=== PATIENT | female | born 1965 | race Caucasian/White ===

== ENCOUNTER 2020-01-09 06:51 | Emergency (ER) | payer OTHER, SELFPAY ==
--- NOTE | ~2020-01-09 | CT_ITS ---
EXAMINATION: CT BRAIN W/O DATE: 01/09/2020 08:00 INDICATION: Right arm numbness TECHNIQUE: Computed tomography (CT) of the head was performed without intravenous contrast. The dose- length product was 605.33 mGy-cm. The mA was adjusted according to patient size. Iterative reconstruc tion technique was employed. COMPARISON: No prior studies for comparison. FINDINGS: Normal brain parenchymal volume for age. Normal scott-white differentiation. No acute intrac ranial hemorrhage, infarction, mass or mass effect. No ventriculomegaly or midline shift. Midline sagittal images demonstrate a normal corpus callosum, c raniovertebral junction and sella turcica. Basilar cisterns are patent. Paranasal sinuses and mastoids are pneumatized. No depressed skull fractures. IMPRESSION: 1. No acute intracranial abnormality. Reviewed, dictated and finalized at location A.
--- NOTE | ~2020-01-09 | XR_ITS ---
EXAMINATION: XR chest 2V 01/09/2020 08:07 INDICATION: Chest palpitations. PROCEDURE: 2 view chest COMPARISON: No prior studies for comparison. FINDINGS: The lungs are clear. The cardiomediastinal silhouette is within normal limits. There are no pleural effusions. There is no pneumothorax suspected. IMPRESSION: 1: NO ACUTE CARDIOPULMONARY DISEASE. Reviewed, dictated and finalized at location A.
[2020-01-09 06:55] VITALS: BP 174/103; PULSE 91; RESP 14; TEMP 36.6; O2SAT 100
--- NOTE | 2020-01-09 06:59 | ECG_ITS ---
Measurements Intervals Driscoll Rate: 88 P: 42 MN: 154 QRS: -10 QRSD: 88 T: 24 QT: 356 QTc: 432 Interpretive Statements SINUS RHYTHM BASELINE WANDER- II, III, AVR, V2, V4-V6 NORMAL ECG Electronically Signed On 01-09-2020 7:02:49 CDT by Ayo Bernardo D.O.
[2020-01-09 07:12] VITALS: O2SAT 99
[2020-01-09 07:12] LABS: Basophils Percent Auto 0.5 % (0.2-1.2); Eosinophils Absolute Auto 0.2 K/mm3 (0-0.3); Eosinophils Percent Auto 2.5 % (0-4.4); Hematocrit 39.9 % (37.0-47.0); Hemoglobin 12.8 g/dL (12.0-15.0); Immature Granulocyte Absolute 0.03 K/mm3 (0.00-0.031); Immature Granulocyte Percent A 0.4 % (0-0.5); Lymphocytes Absolute Auto 2.09 K/mm3 (0.9-3.2); Lymphocytes Percent Auto 27.6 % (18.3-44.2); Mean Corpuscular HGB Conc 32.1 g/dl (32-36); Mean Corpuscular Hemoglobin 28.1 pg (26-34); Mean Corpuscular Volume 87.5 fl (80-100); Monocytes Absolute Auto 0.5 K/mm3 (0.1-0.6); Monocytes Percent Auto 6.9 % (2.6-8.5); Neutrophils Absolute Auto 4.7 K/mm3 (1.3-6.7); Neutrophils Percent Auto 62.1 % (45.5-73.1); Platelet Count Result 242 k/mm3 (150-375); Red Blood Count 4.56 M/mm3 (4.2-5.4); Red Cell Distribution Width 14.4 % (11.5-14.5); White Blood Count 7.6 K/mm3 (4.5-10.0)
--- NOTE | 2020-01-09 07:12 | ED.GENADULT ---
HPI - General Adult General Chief complaint: Arrhythmia/Palpitations Stated complaint: cp Time Seen by Provider: 01/09/20 07:08 History of Present Illness HPI narrative: Patient is a 54-year-old female who presents ER with couple different issues. Her main complaint is that she woke up twice last night with right upper extremity numbness and heaviness that lasted for about 30 minutes each. She then woke up this morning and felt like her right arm was still heavy. No chest pain or chest pressure. Denies any facial droop or slurred speech but she did not get up to check the mirror when the symptoms were occurring. No history of CVA previously. Reports several weeks ago she had what felt like skipped beats. She contacted her PCP but she has been unable to get a Holter monitor. 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 She denies that she is been caring for COVID positive patients without any personal protective equipment. She has had no infectious symptoms to date. Patient's extremity numbness resolved on its own. No aggravating or alleviating factors. She did not wake up finding that she was lying on her arm awkwardly. Related Data Home Medications Medication Instructions Recorded Confirmed montelukast 10 mg tablet 10 mg PO DAILY 09/25/19 09/25/19 Allergies Allergy/AdvReac Type Severity Reaction Status Date / Time No Known Allergies Allergy Verified 12/19/19 15:29 Review of Systems Review of Systems: All systems reviewed & are unremarkable except as noted in HPI and below Constitutional: Constitutional: Denies chills, Denies fatigue and Denies fever(s) ENT: Denies nasal congestion and Denies sore throat Cardiovascular: Cardiovascular: Denies chest pain Comments: Skipped beats Respiratory: Respiratory: Denies chest congestion, Denies cough and Denies dyspnea Gastrointestinal: Gastrointestinal: Denies abdominal pain, Denies nausea and Denies vomiting Neurologic: Denies focal weakness and Reports numbness PMFSH Past Medical History Medical History (Updated 01/09/20 @ 11:46 by Jerome Corrales MD) Anxiety Complex tear of medial meniscus, current injury, left knee, subsequent encounter Family history of coronary artery disease Gastroesophageal reflux disease without esophagitis Major depressive disorder with single episode, in partial remission Vitamin B12 deficiency Surgical History Surgical History (Updated 01/09/20 @ 08:26 by Jerome Corrales MD) No significant past surgical history Social History Social History Smoking status: Former smoker Second hand tobacco smoke exposure: No Smoking end date: 09/07/12 Alcohol intake: current Exam Narrative: Exam Narrative: GENERAL: Well-appearing, well-nourished, and in no acute distress. HEAD: Normocephalic, atraumatic. EYES: PERRL and EOMI. ENT: Mucous membranes moist. CHEST: Clear to auscultation. No respiratory distress. HEART: Regular rate and rhythm. Normal peripheral pulses. ABDOMEN: Soft, nontender, nondistended. EXTREMITIES: Normal range of motion. No edema. SKIN: Warm, dry, no rash. NEURO: No focal deficits. No upper or lower extremity drift. Normal [id number] testing. Cranial nerves II through XII intact. Sensation intact and equal in upper and lower extremities. Alert and oriented x3. Course Course Emergency Course: Discussed case with patient's PCP. Comfortable with outpatient follow-up and daily aspirin. Patient has had some of the right upper extremity issues over the last 6 weeks that she did not previously report that the PCP is aware of. Vital Signs Vital signs: Vital Signs Temperature 97.8 F 01/09/20 06:55 Pulse Rate 91 01/09/20 06:55 Respiratory Rate 14 01/09/20 06:55 Blood Pressure 174/103 H 01/09/20 06:55 Pulse Oximetry 100 01/09/20
[2020-01-09 07:22] LABS: INR 0.9; Partial Thromboplastin Time 26.4 SECONDS (22.3-36.8); Prothrombin Time 11.8 Seconds (11.1-14.7)
[2020-01-09 07:23] LABS: Blood Urea Nitrogen 16 mg/dL (7-17); Calcium 9.3 mg/dL (8.4-10.2); Carbon Dioxide 29 mmol/L (22-30); Chloride 103 mmol/L (98-107); Estimated CRCL calculation 115 ml/min; Estimated Glomerular Filt Rate > 60; Glucose 109 mg/dL (65-105); Potassium 3.7 mmol/L (3.4-5.0); Sodium 140 mmol/L (137-145)
[2020-01-09 07:35] LABS: Troponin I < 0.012 ng/mL (0.000-0.034)
[2020-01-09] MEDS: ASPIRIN 81 MG CHEWABLE TABLET 324 MG PO (07:41)
[2020-01-09 10:28] VITALS: BP 116/74; PULSE 60; RESP 14; O2SAT 100
[2020-01-09 10:42] LABS: Troponin I < 0.012 ng/mL (0.000-0.034)
[2020-01-09 10:48] VITALS: BP 135/68; PULSE 65; RESP 20; O2SAT 100
[2020-01-09 12:05] VITALS: BP 138/75; PULSE 80; RESP 12; O2SAT 99
== END 2020-01-09 12:11 | disposition home or self-care (01) ==
PROVIDERS: Emergency Medicine; Emergency Provider Emergency Medicine; PCP Family Medicine
DX: K21.9 Gastro-esophageal reflux disease without esophagitis (principal); E53.8 Deficiency of other specified B group vitamins; Z87.891 Personal history of nicotine dependence; R20.2 Paresthesia of skin; R00.2 Palpitations
CPT/HCPCS: 36415; 70450; 71046; 80048; 84484; 85025; 85610; 85730; 93005; 99284; A9270

== ENCOUNTER 2020-04-12 08:00 | Outpatient (RCR) | payer OTHER, SELFPAY ==
--- NOTE | 2020-02-17 16:22 | PTOPEVAL ---
PHYSICAL THERAPY EVALUATION AND PLAN OF CARE 02-17-2020 The PT evaluation was completed for the diagnosis of B LE swelling. Her plan of treatment is 0-2x/week for 5 weeks. Treatment will begin when she obtains the reduction kit. Thank you for referring Kishan Rodriguez to [facility]. Please review, sign, date and return this plan of care [facility]. I agree with and certify that the following plan of care is medically necessary. Referring Physician Date Attending Provider: Precious Mcmahan MD *PT Outpatient Evaluation Start: 02/17/20 14:39 Document 02/17/20 14:35 RICKY (Rec: 02/17/20 16:21 RICKY [id number]) Outpatient Past Medical History Past Medical History Source of Past Medical History Patient Neurological History Hx Neurological Disorders No Significant History Cardiovascular History Hx Other Cardiac Disorders Yes: have referral to garbage person-heart palpitations Respiratory History Hx Sleep Apnea Yes: use CPAP Hx Other Respiratory Disorders Yes: allergies- take meds Gastrointestinal History Hx Gastrointestinal Disorders No Significant History Genitourinary History Hx Genitourinary Disorders No Significant History Musculoskeletal History Hx Arthritis Yes: ? arthritis in L knee- have referral to rheumatology Hx Orthopedic Surgery Yes: L knee arthroscopy- problems with it-bending Hx Other Musculoskeletal Disorders Yes: carpal tunnel-wear splint for sleeping Hematological History Hx Hematological Disorders No Significant History Endocrine History Hx Endocrine Disorders No Significant History Integumentary History Hx Psoriasis Yes Reproductive History Hx Other Reproductive Disorders Yes: 5 laser surgeries AIMEE-- vulvar area, abnormal cells removed Psychosocial History Hx Anxiety Yes Evaluation Information Problem Diagnosis swelling of legs Onset December 07, 2019 Subjective Information gradual increase in swelling Query Text:As Reported By Patient/ of legs; Family Prior Level of Function Activity Level (Last 3 Months) 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
--- NOTE | 2020-02-17 16:45 | PCPTNOTE ---
pt signed consent and her information was faxed to [employer], [place] and [facility] for ordering/ insurance auth for Circ Aid reduction lower leg kits. Treatment will be initiated when she receives the garments. Pt was issued # and to call PT if any further questions. Also issued pt a list of medial suppliers and the size/name of the garments that we discussed.
--- NOTE | 2020-03-08 11:19 | PCPTNOTE ---
Addendum entered by Tracey Troncoso, PT 03/08/20 11:24: This was faxed to [facility] with the request for her insurance for R and L circ aid reduction upper leg and Capris. Original Note: PHYSICAL THERAPY PROGRESS REPORT 03-08-2020 Mrs. Rodriguez has worn lower leg Circ Aid Reduction from March 02 to today. With the circumferential measurements of her R and L legs today, both lower legs have decreased from .5 to 4 cm at each 4 cm increment. Both L and R upper legs, from 40 cm to 72 cm--measurements have all increased, up to 2 cm at each of the 4 cm increments. Kishan requires compression at the thighs due to the measurements have increased at her thighs with the compression over her lower legs. And lower leg size has decreased. She requires Circ Aid reduction kits for R and L upper legs to use during the night and Capris for day use, to manage her Lymphdedema. Tracey Troncoso, PT, CLT
--- NOTE | 2020-03-22 16:30 | PTOPEVAL ---
PHYSICAL THERAPY RE-EVALUATION AND UPDATED PLAN OF CARE 03-22-2020 Mrs. Rodriguez has received 8 PT sessions, from February 16 to today for the diagnosis of B LE lymphedema. She has improved with decreased circumferential measurements of both legs. The total decrease on the R is 22.5 cm and the L is 2.1 cm. As her lower leg measurements decreased, her thigh measurements increased. Her treatment started with lower leg compression only, with good results over the lower leg. She now has obtained the reduction compression garment for one thigh, they are on back order, to start thigh compression. She has been approved for a home intermittent compression pump and should receive it tomorrow. Continue PT 2x/week for 4 weeks, for further reduction of her thighs and for her to obtain compression garments for her legs to maintain her smaller size. Thank you for referring Kishan Rodriguez to [facility]. Please review, sign, date and return this updated plan of care [facility]. I agree with and certify that the following plan of care is medically necessary. Referring Physician Date Attending Provider: Precious Mcmahan MD *PT Outpatient Re-Evaluation Document 03/22/20 15:35 RICKY (Rec: 03/22/20 16:30 RICKY [id number]) Subjective Information Kishan reports: pleased with Query Text:As Reported By Patient/ legs--lower legs are smaller; Family is doing OK with the compression and L lower leg is no longer weeping; to get the pump for home use tomorrow; want to continue therapy for her legs; Pain Assessment Timing of Pain Assessment Timing of Pain Assessment Assessment Pain Scale Pain Scale Used Numeric (1 - 10) Self Report Pain Assessment Bilateral Leg(s) Reported Pain Level 4 Pain Frequency Chronic Other Pain Description B knees tight and upper thighs are heavy Pain Score Pain Score 4: Self Report Lymphedema Evaluation LE Circumferential Measurement Right LE Lymphedema Side Right Metatarsal Heads (cm) 23.2 Figure 8 of Ankle (cm) 50.6 8 cm From Bottom of Foot (cm) 25.5 12 cm From Bottom of Foot (cm) 2.8 16 cm From Bottom of Foot (cm) 25.5 20 cm From Bottom of Foot (cm) 30 24 cm From Bottom of Foot (cm) 34.8 28 cm From Bottom of Foot (cm) 38.8 32 cm From Bottom of Foot (cm) 43.2 36 cm From Bottom of Foot (cm) 45 40 cm From Bottom of Foot (cm) 45.2 44 cm From Bottom of Foot (cm) 44 48 cm From Bottom of Foot (cm) 50 52 cm From Bottom of Foot (cm) 57 56 cm From Bottom of Foot (cm) 60 60 cm From Bottom of Foot (cm) 64 64 cm From Bottom of Foot (cm) 69.5 68 cm From Bottom of Foot (cm) 72.5 72 cm From Bottom of Foot (cm) 76 Total Left Lower Extremity Right LE: 857.6 cm Circumferential Measurement (cm)
--- NOTE | 2020-04-05 10:23 | PCPTNOTE ---
Contacted Dr Banegas office to check on request signature for order of compression knee highs. Mishel apologized that it was under some other papers in her chart and they will fax it over giovanni.
--- NOTE | 2020-04-09 16:10 | PCPTNOTE ---
received signed order from dr rickie reyes; faxed the order to [facility].
--- NOTE | 2020-04-16 16:06 | PCPTNOTE ---
pt called and left a message today, stated she needed to cancel her remaining 2 appts--doing well with her garments and been exposed to COVID and is in quarantine. I called pt and left voice message for her--any further questions/concerns about d/c;
--- NOTE | 2020-04-20 13:24 | PCPTNOTE ---
PHYSICAL THERAPY DISCHARGE 04-20-2020 Attending Provider: Precious Mcmahan MD Patient:Kishan Rodriguez Date of :1965 Mrs. Rodriguez has received a total of 16 PT sessions, from February 16 to April 13 for the diagnosis of B LE lymphedema. Circumferential measurements of LE's, up to 72 cm: R is 880.7 cm and L is 888.7 cm. Her total numbers are within a few cm of the initial eval measurements, but the lower leg is less and thigh is more. Lymphedema management: She has compression knee high garments and compression capris, is performing self lymph massage and has a home intermittent compression pump. She has also been educated on skin care and LE exercises. The goals have been met, except the circumferential measurements of her legs. Thank you for referring Mrs. Rodriguez to [facility]. Please review, sign, date and return this discharge summary GABRIEL. I have been updated about the patient's current status and I agree with discharge from the above service at this time. Referring Physician Date
== END 2020-04-23 14:32 | disposition home or self-care (01) ==
LOC: ANHPT 08:00
PROVIDERS: PCP Family Medicine; Visit Provider Family Medicine
DX: I89.0 Lymphedema, not elsewhere classified (principal)
CPT/HCPCS: 29581; 97140; 97161

== ENCOUNTER 2021-02-02 10:06 | Emergency (ER) | payer OTHER, SELFPAY ==
[2021-02-02 10:21] VITALS: BP 157/91; PULSE 97; RESP 16; TEMP 36.3; O2SAT 100
--- NOTE | 2021-02-02 10:28 | ED.EAR ---
HPI - Ear Problem General Chief complaint: Ear Stated complaint: Ear pain Time Seen by Provider: 02/02/21 10:25 Source: patient, RN notes reviewed and old records reviewed Mode of arrival: ambulatory Limitations: no limitations History of Present Illness HPI Narrative: 55-year-old female who presents to [facility] with complaints of bilateral ear pain for 1 week duration with right ear more severe than left. Patient states that she has had sinus drainage, frontal headaches and also sone intermittent dizziness with position changes. Patient states that she has history of allergies seasonal and environmental and has been taking allergy pill daily, also past history of sinus infections.Patient denies any fevers, chills or sweats, denies any shortness of breath or any acute cough. MD Complaint: ear pain Location: bilateral Duration: constant Severity: moderate Relieving factors: other (allergy med) Discharge from ear: Reports no Associated symptoms ear: headache, rhinorrhea and other (dizziness with position changes) Treatment prior to arrival: other (allergy medication) Related Data Allergies Allergy/AdvReac Type Severity Reaction Status Date / Time No Known Allergies Allergy Verified 09/25/20 10:23 Review of Systems Review of Systems: Narrative: CONSTITUTIONAL: Denies fever, chills, or sweats. EYES: Denies visual changes, redness, or discharge. ENT: positive rhinorrhea, congestion,no sore throat, positive bilateral otalgia. CARDIOVASCULAR: Denies chest pain, palpitations, or edema. RESPIRATORY: Denies cough or dyspnea. GASTROINTESTINAL: Denies abdominal pain, nausea, vomiting, or diarrhea. GENITOURINARY: Denies dysuria or hematuria. SKIN: Denies rash or itching. MUSCULOSKELETAL: Denies back pain, joint pain, or myalgia. NEUROLOGIC: positive headache, no numbness, or weakness.some dizziness with position changes PSYCHIATRIC: Positive history of anxiety or depression. All systems reviewed & are unremarkable except as noted in HPI and below PMFSH Past Medical History Medical History (Updated 02/02/21 @ 18:58 by Leanne Wilkerson NP) Anxiety Arthritis Complex tear of medial meniscus, current injury, left knee, subsequent encounter Family history of coronary artery disease Gastroesophageal reflux disease without esophagitis Major depressive disorder with single episode, in partial remission AMIRAH (obstructive sleep apnea) Osteoarthritis Vitamin B12 deficiency Surgical History Surgical History (Updated 02/02/21 @ 18:58 by Leanne Wilkerson NP) H/O arthroscopy of left knee Family History Family History Mother Hypertension Grandparent Hypertension Carcinoma of colon, Onset Age: 60 Family history of coronary artery disease Father Family history of malignant neoplasm of gastrointestinal tract, Onset Age: 60 Sibling Family history of lupus erythematosus Other Family history of gout Family history of malignant neoplasm Social History Social History Smoking packs per day: 1 Smoking cigarettes per day: 20.0 Years smoked: 25 Smoking pack-years: 25.00 Smoking status: Never smoker Second hand tobacco smoke exposure: No Smoking end date: 09/07/12 Alcohol intake: current Substance use: never Substance use type: does not use Gender identity (if verbalized by the patient): Female Comments At time of signature, agree with nursing past medical, surgical, social and family history. There is no relevant family history pertinent to the presenting complaint Exam Narrative: Exam Narrative: GENERAL: Well-appearing, well-nourished, and in no acute distress. HEAD: Normocephalic, atraumatic. EYES: PERRLA and EOMI. ENT: Nares red,clear rhinorrhea, sinus congestion, facial pressure, frontal headache pain, no epistaxis. Mucous membranes moist.TM's right ear has dull light reflex with effusion no
== END 2021-02-02 10:46 | disposition home or self-care (01) ==
PROVIDERS: Emergency Provider Registered Nurse; PCP Family Medicine
DX: J32.9 Chronic sinusitis, unspecified (principal); H92.03 Otalgia, bilateral; F17.210 Nicotine dependence, cigarettes, uncomplicated; M19.90 Unspecified osteoarthritis, unspecified site; K21.9 Gastro-esophageal reflux disease without esophagitis; G47.33 Obstructive sleep apnea (adult) (pediatric)
CPT/HCPCS: 99213; G0463

== ENCOUNTER 2021-06-24 13:49 | Emergency (ER) | payer OTHER, SELFPAY ==
[2021-06-24 13:57] VITALS: BP 170/92; PULSE 92; RESP 12; TEMP 36.6; O2SAT 99
[2021-06-24 14:05] VITALS: BP 170/92; PULSE 92; RESP 12; TEMP 36.6; O2SAT 99
--- NOTE | 2021-06-24 14:32 | ED.SKABFB ---
HPI - Skin/Abscess/Foreign Bdy General Chief complaint: Skin/Abscess/Foreign Body Stated complaint: neck hurts Source: patient and RN notes reviewed Mode of arrival: ambulatory Limitations: no limitations History of Present Illness HPI narrative: Charmaine is a 56-year-old female [facility]. Patient states that even putting a sheet on her neck causes pain. Patient denies fever, denies chills, and denies any other symptoms. Patient denies sore throat, ear pain, or teeth pain. Patient just recently followed up with her dentist and follows up every six 6 months for ccleaning and x-rays. No redness, rash, or skin lesions noted. Patient states she has had the pain for the last few weeks. Patient states that the pain last night was worse states it was very irritating to have the sheet touch her skin. Patient denies any changes in her appetite or her eating ability. Patient states she can swallow without difficulty. MD complaint: other (neck pain) Related Data Allergies Allergy/AdvReac Type Severity Reaction Status Date / Time No Known Allergies Allergy Verified 06/24/21 14:04 Review of Systems Review of Systems: CONSTITUTIONAL: Denies body aches, fever, chills, or sweats. EYES: Denies visual changes, redness, or discharge. ENT: Denies rhinorrhea, congestion, sore throat, or otalgia. CARDIOVASCULAR: Denies chest pain, palpitations, or edema. RESPIRATORY: Denies cough or dyspnea. GASTROINTESTINAL: Denies abdominal pain, nausea, vomiting, or diarrhea. GENITOURINARY: Denies dysuria or hematuria. SKIN: Denies rash, itching, or wounds. MUSCULOSKELETAL: Denies back pain, joint pain, or myalgia; c/o neck pain with touch only NEUROLOGIC: Denies headache, numbness, tingling, or weakness. PSYCH: Denies depression or anxiety. [facility] Past Medical History Medical History Anxiety Arthritis Complex tear of medial meniscus, current injury, left knee, subsequent encounter Family history of coronary artery disease Gastroesophageal reflux disease without esophagitis Major depressive disorder with single episode, in partial remission AMIRAH (obstructive sleep apnea) Osteoarthritis Vitamin B12 deficiency Surgical History Surgical History H/O arthroscopy of left knee Family History Family History Mother Hypertension Grandparent Hypertension Carcinoma of colon, Onset Age: 60 Family history of coronary artery disease Father Family history of malignant neoplasm of gastrointestinal tract, Onset Age: 60 Sibling Family history of lupus erythematosus Other Family history of gout Family history of malignant neoplasm Social History Social History Smoking packs per day: 1 Smoking cigarettes per day: 20.0 Years smoked: 25 Smoking pack-years: 25.00 Smoking status: Never smoker Second hand tobacco smoke exposure: No Smoking end date: 09/07/12 Alcohol intake: current Alcohol use details: rare Substance use: never Substance use type: does not use Gender identity (if verbalized by the patient): Female Comments At time of signature, I have reviewed and agree with nursing past medical, surgical, social and family history unless otherwise noted. Please see nursing chart for further information. There is no relevant family history pertinent to the presenting complaint Exam Narrative: GENERAL: Well-appearing, well-nourished, and in no acute distress. HEAD: Normocephalic, atraumatic. EYES: EOMI. No redness or drainage. Conjunctivae normal. ENT: Mucous membranes pink and moist. Nares clear. No rhinorrhea. TMs normal bilaterally. Throat normal. Uvula midline. NECK: Normal AROM. Supple. No lymphadenopathy; Pain with touch to midline neck, swallowin
== END 2021-06-24 14:50 | disposition home or self-care (01) ==
PROVIDERS: Emergency Provider Nurse Practitioner Family; PCP Family Medicine
DX: M54.2 Cervicalgia (principal); F17.210 Nicotine dependence, cigarettes, uncomplicated; M19.90 Unspecified osteoarthritis, unspecified site; K21.9 Gastro-esophageal reflux disease without esophagitis; G47.33 Obstructive sleep apnea (adult) (pediatric)
CPT/HCPCS: 99213; G0463

== ENCOUNTER → 2021-07-10 11:51 | Outpatient (CLI) | payer OTHER, SELFPAY ==
--- NOTE | ~2021-07-10 | US_ITS ---
EXAMINATION: US thyroid EXAM DATE: 07/10/2021 12:12 INDICATION: E01.0 - Iodine-deficiency related diffuse (endemic) goiter. TECHNIQUE: Multiple grayscale and Doppler images of the thyroid were obtained (by a technologist who performed the scan) and subsequently reviewed. Individual nodules and recommendations may be reporte d in accordance with TI-RADS system as designated by the 2017 ACR White Paper TI-RADS committee. The re is no prior study for comparison. FINDINGS: The right thyroid lobe measures 5.4 x 1.6 x 1.7 cm, the left measuring 4.3 x 2.1 x 1.6 cm. Diffusely heterogeneous thyroid echogenicity with several left thyroid lobe nodules. Largest left thyroid lobe nodule measures 1.0 x 0.9 x 1.5 cm, almost entirely cystic, hypoechoic (2 points), wider than tall, smooth well defined margin, without echogenic foci, category TR2 for this n odule. Other nodules also appear mostly or completely cystic. IMPRESSION: Mild thyromegaly. Cystic left thyroid nodules likely benign. Reviewed, dictated and finalized at location A.
== END ==
PROVIDERS: PCP Family Medicine; Visit Provider Physician Assistant
DX: E01.0 Iodine-deficiency related diffuse (endemic) goiter (principal)
CPT/HCPCS: 76536

== ENCOUNTER 2021-11-14 16:29 | Outpatient (CLI) | payer OTHER, SELFPAY ==
--- NOTE | ~2021-11-14 | MM_ITS ---
EXAMINATION: MM screening evelyn BI w marla HISTORY: Screening TECHNIQUE: Craniocaudal and mediolateral oblique 3-D tomosynthesis images were obtained and synthetic 2-D images were generated. CAD analysis was submitted and interpreted. COMPARISON: Comparison to multiple prior studies sequentially, with oldest reviewed study dated 08/09. BREAST PARENCHYMAL COMPOSITION: The breasts are almost entirely fatty. FINDINGS: There is no evidence of suspicious mass, calcification, or architectural distortion to sugg est malignancy in either breast. There has been no suspicious interval change. IMPRESSION: 1. No mammographic evidence of malignancy. 2. Recommend routine screening mammography in one year. BI-RADS Category 1: Negative Reviewed, dictated and finalized at location A. [employer]CH[employer]
== END 2021-11-14 16:30 | disposition home or self-care (01) ==
PROVIDERS: PCP Family Medicine; Visit Provider Physician Assistant
DX: Z12.31 Encounter for screening mammogram for malignant neoplasm of breast (principal)
CPT/HCPCS: 77063; 77067

== ENCOUNTER 2022-02-19 12:30 | Outpatient (RCR) | payer OTHER, SELFPAY ==
--- NOTE | 2022-01-27 10:04 | PTOPEVAL ---
PHYSICAL THERAPY EVALUATION AND PLAN OF CARE 01-27-22 Thank you for referring Kishan Rodriguez to [facility], for the diagnosis of R and L knee osteoarthritis. She is scheduled to be seen for therapy? 2x/week for 4 weeks. Please review, sign, date and return this plan of care GABRIEL. I agree with and certify that the following plan of care is medically necessary. Referring Physician Date Attending Provider: FAITH Graham Past Medical History Source of Past Medical History Recalled from Previous Visit, Confirmed with Patient/Family Neurological History Hx Neurological Disorders No Significant History Cardiovascular History Hx Other Cardiac Disorders Yes: have referral to lending manager-heart palpitations Respiratory History Hx COVID-19 Yes: 2x- continues to have decreased smell Hx Sleep Apnea Yes: use CPAP Hx Other Respiratory Disorders Yes: allergies- take meds Gastrointestinal History Hx Gastrointestinal Disorders No Significant History Genitourinary History Hx Genitourinary Disorders No Significant History Musculoskeletal History Hx Arthritis Yes: B knees Hx Orthopedic Surgery Yes: L knee arthroscopy ~ 2013 Hx Other Musculoskeletal Disorders Yes: R carpal tunnel-non surgical, wear splint for sleeping PRN Hematological History Hx Hematological Disorders No Significant History Endocrine History Hx Endocrine Disorders No Significant History Integumentary History Hx Psoriasis Yes: use cream on skin Reproductive History Hx Post Menopausal Yes Psychosocial History Hx Anxiety Yes Other History Hx Other Medical Conditions Yes: B LE lymphedema, obesity Evaluation Information Diagnosis R and L knee OA Onset about one year Subjective Information gradual increase in pain, no Query Text:As Reported By Patient/ trauma or injury to knees/legs Family ; have had 2 injections into knees, helped a little; going to get some gel injections into knees- not scheduled yet; decreased mobility; they said would need TKR eventually ; Diagnostic Tests X-Rays For This Problem Yes MRI For This Problem No Other Tests For This Problem No Previous Treatments Previous Treatments For This Problem no PT for knees Prior Level of Function Activity Level (Last 3 Months) 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
--- NOTE | 2022-02-19 15:41 | PTOPEVAL ---
PHYSICAL THERAPY DISCHARGE REPORT 02-19-22 Refer to the clinical summary below, for her status today, compared to the initial evaluation. The goals were achieved, therefore, she will be discharged from PT services. And is to continue with her HEP. Thank you for referring Kishan Rodriguez to [facility].? Please review, sign, date and return this Discharge Report GABRIEL. I agree with and certify that the following plan of care is medically necessary. Referring Physician Date Attending Provider: FAITH Graham Subjective Information Kishan reports: have received Query Text:As Reported By Patient/ authorization for knee Family injections with some type of gel, not pain injections; feel like legs are stronger, am doing 20 reps of the exercises at home; have more swelling in her legs--possibly due to the increased heat outside; is using the home pump for her legs still, but not worn the compression knee highs; Pain Assessment Pain Scale Pain Scale Used Numeric (1 - 10) Self Report Pain Assessment Bilateral Knee(s) Reported Pain Level 4 Pain Frequency Chronic,Continuous Other Pain Description constant pain in knee Lowest Pain Intensity 1 Greatest Pain Intensity 4 Pain Aggravating Factors Walking Other Pain Aggravating Factors reported walking tolerance of 20 min; with sleeping,awaken 3x in past week Additional Pain Score Comments reviewed pain management techniques with pt: ice, rest, gradual increase in activity level; monitor swelling of knees, elevation, use of compression garments and home compression pump; applied leukotape to R and L knees, to improve patellar tracking to more medial position; educated pt on how to self tape and gave her written name and information to obtain tape. pt asked questions about TKR-- answered them with basic info on PT after surgery, goals of surgery; Interventions Used Interventions Used By Clinicians Education,Exercise Pain Relief Interventions Used By Ice,Medication,Position Change Patient
== END 2022-04-15 09:15 | disposition home or self-care (01) ==
LOC: ANHPT 12:30
PROVIDERS: PCP Family Medicine; Visit Provider Nurse Practitioner Family
DX: M17.0 Bilateral primary osteoarthritis of knee (principal)
CPT/HCPCS: 97014; 97110; 97112; 97140; 97162; 97530; G0283

== ENCOUNTER → 2022-03-18 11:29 | Outpatient (CLI) | payer OTHER, SELFPAY ==
--- NOTE | ~2022-03-18 | XR_ITS ---
XR hand RT min 3V DATE: 03/18/2022 11:50 INDICATION: Localized swelling, mass, lump TECHNIQUE: 3 COMPARISON: None FINDINGS: Mild osteoarthritis at first carpometacarpal, first metacarpophalangeal and some interphala ngeal joints. No fracture or dislocation, periosteal reaction or bone destruction, erosive change or chondrocalcino sis. IMPRESSION: Mild polyarticular osteoarthritis Reviewed, dictated and finalized at location A.
--- NOTE | ~2022-03-18 | XR_ITS ---
XR foot RT min 3V DATE: 03/18/2022 11:50 INDICATION: Localized swelling, mass, lump TECHNIQUE: 4 views COMPARISON: None FINDINGS: Plantar and posterior calcaneal enthesopathy. Mild osteoarthritis at the first metatarsopha langeal joint. No fracture, dislocation, periosteal reaction or bone destruction. No erosive change. IMPRESSION: Plantar and posterior calcaneal enthesopathy Mild first metatarsophalangeal joint osteoarthritis Reviewed, dictated and finalized at location A.
== END ==
PROVIDERS: PCP Family Medicine; Visit Provider Physician Assistant
DX: R22.9 Localized swelling, mass and lump, unspecified (principal); M25.50 Pain in unspecified joint; M77.31 Calcaneal spur, right foot; M19.071 Primary osteoarthritis, right ankle and foot; M19.041 Primary osteoarthritis, right hand
CPT/HCPCS: 73130; 73630

== ENCOUNTER → 2022-09-16 10:06 | Outpatient (CLI) | payer OTHER, SELFPAY ==
--- NOTE | ~2022-09-16 | US_ITS ---
EXAMINATION: US thyroid DATE: 09/16/2022 10:21 INDICATION: Single nontoxic thyroid nodule. TECHNIQUE: Multiple ultrasound images of the thyroid were obtained. COMPARISON: Ultrasound 07/10/2021 FINDINGS: The right thyroid lobe measures 5.4 x 1.5 x 1.7 cm. The left thyroid lobe measures 4.4 x 1.9 x 1.9 c m. In the left thyroid lobe, there is a 2.5 cm solid, hypoechoic, wider than tall nodule with lobula mora margin without echogenic foci (TI-RADS TR4). In the left thyroid lobe, there is a 6 mm solid, aj y hypoechoic, wider than tall nodule with smooth margin without echogenic foci (TR4). IMPRESSION: 1. Multinodular goiter. Ultrasound-guided fine-needle aspiration of a left thyroid nodule is recommen ded. Reviewed, dictated and finalized at location A. SPECIALIST IMPRESSION: 1. Multinodular goiter. Ultrasound-guided fine-needle aspiration of a left thyr oid nodule is recommended.
== END ==
PROVIDERS: PCP Family Medicine; Visit Provider Nurse Practitioner
DX: E04.2 Nontoxic multinodular goiter (principal)
CPT/HCPCS: 76536

== ENCOUNTER 2022-10-02 09:54 | Outpatient (CLI) | payer OTHER, SELFPAY ==
--- NOTE | ~2022-10-02 | US_ITS ---
EXAMINATION: US FNA w image guidance DATE: 10/02/2022 11:19 INDICATION: Thyroid nodule. TECHNIQUE: The procedure and its benefits and risks were discussed with the patient. Risks specifically discusse d included bleeding. The patient verbalized understanding of the risks and agreed to proceed. The nec k was prepped and draped in the usual sterile manner. 1% lidocaine was used for local anesthesia. 7 passes were made with a 25G needle into the lesion under ultrasound guidance. There were no immedia te complications. FINDINGS: Grayscale ultrasound images demonstrate needles advanced into a 2.5 cm nodule in left thyroid lobe fo r biopsy. IMPRESSION: 1. Ultrasound-guided fine needle aspiration of a left thyroid nodule. Reviewed, dictated and finalized at location A. 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
== END 2022-10-02 09:55 | disposition home or self-care (01) ==
PROVIDERS: PCP Family Medicine; Visit Provider Internal Medicine Endocrinology, Diabetes & Metabolism
DX: E04.1 Nontoxic single thyroid nodule (principal)
CPT/HCPCS: 10005; 88173; 88305

== ENCOUNTER → 2023-03-27 09:27 | Outpatient (CLI) | payer OTHER, SELFPAY ==
--- NOTE | ~2023-03-27 | XR_ITS ---
Right Hand Technique: PA, oblique, and lateral views were obtained. Clinical History: Polyarthritis Findings: No acute fracture or dislocation is seen. Osseous alignment is anatomic. There is minimal d egenerative change of the second and third DIP joints. Soft tissues are unremarkable. Impression: Minimal degenerative change of the second and third DIP joints. Reviewed, dictated and finalized at location . Impression: Minimal degenerative change of the second and third DIP joints.
--- NOTE | ~2023-03-27 | XR_ITS ---
AP and oblique views of the SI joints CLINICAL HISTORY: Back pain FINDINGS: No erosive or sclerotic change identified. No degenerative change] of the SI joints. Visual ized hip joints are unremarkable. Soft tissues are unremarkable. IMPRESSION: Unremarkable exam. Reviewed, dictated and finalized at location . IMPRESSION: Unremarkable exam.
--- NOTE | ~2023-03-27 | XR_ITS ---
Left Hand Technique: PA, oblique, and lateral views were obtained. Clinical History: Arthritis Findings: No acute fracture or dislocation is seen. Osseous alignment is anatomic. Joint spaces are p reserved. Soft tissues are unremarkable. Impression: Unremarkable left hand. Reviewed, dictated and finalized at location M. Impression: Unremarkable left hand.
== END ==
DX: M15.9 Polyosteoarthritis, unspecified (principal); M54.50 Low back pain, unspecified
CPT/HCPCS: 72202; 73130

== ENCOUNTER 2023-07-04 07:24 | Outpatient (CLI) | payer OTHER, SELFPAY ==
--- NOTE | ~2023-07-04 | MM_ITS ---
EXAMINATION: MM screening [facility] BI w marla HISTORY: Screening mammogram TECHNIQUE: Craniocaudal and mediolateral oblique 3-D tomosynthesis images were obtained and synthetic 2-D images were generated. CAD analysis was submitted and interpreted. COMPARISON: 11/14/2021, 01/17/2019, 02/24/2017 BREAST PARENCHYMAL COMPOSITION: The breasts are almost entirely fatty. FINDINGS: No suspicious mass, calcification, or architectural distortion are identified in either kenji ast to suggest malignancy. There has been no suspicious interval change. IMPRESSION: 1. No mammographic evidence of malignancy. 2. Recommend routine screening mammography in one year. BI-RADS Category 1: Negative Reviewed, dictated and finalized at location A.
== END 2023-07-04 07:25 | disposition home or self-care (01) ==
LOC: ANHIMG 07:27
PROVIDERS: PCP Family Medicine; Visit Provider Physician Assistant
DX: Z12.31 Encounter for screening mammogram for malignant neoplasm of breast (principal)
CPT/HCPCS: 77063; 77067

== ENCOUNTER → 2023-09-30 12:41 | Outpatient (CLI) | payer OTHER, SELFPAY ==
--- NOTE | ~2023-09-30 | US_ITS ---
EXAMINATION: US thyroid DATE: 09/30/2023 13:01 INDICATION: Nontoxic single thyroid nodule TECHNIQUE: Multiple ultrasound images of the thyroid were obtained. COMPARISON: 09/16/2022 and 10/02/2022 FINDINGS: The right thyroid lobe measures 5.0 x 1.5 x 1.6 cm. The left thyroid lobe measures 4.2 x 1.8 x 1.5 c m. No significant interval change in a 2.2 cm wider than tall solid hypoechoic nodule with lobular m argins and without echogenic foci in the left thyroid (TI-RADS 4, moderately suspicious , FNA if >=1. 5 cm, annual followup is >=1 cm). There is normal echotexture, echogenicity and vascular flow through out the thyroid gland. There are a couple additional TI RADS 4 solid very hypoechoic wider than tall nodules with smooth or ill-defined margins and without echogenic foci in the left thyroid lobe measur ing 8 mm and 9 mm in maximal diameter. IMPRESSION: 1. 3 TI RADS 4 nodules in the left thyroid lobe, the largest 2.2 cm nodule is without significant in terval change and continues to meet criteria for ultrasound-guided biopsy . Intervening ultrasound-gu ided biopsy was nondiagnostic and would consider repeat attempt at biopsy. Reviewed, dictated and finalized at location A. 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 3 TI RADS 4 nodules in the left thyroid lobe, the largest 2.2 cm nodule is without significant interval change and continues to meet criteria for ultrasou nd-guided biopsy . Intervening ultrasound-guided biopsy was nondiagnostic and w ould consider repeat attempt at biopsy.
== END ==
PROVIDERS: PCP Family Medicine; Visit Provider Family Medicine
DX: E04.2 Nontoxic multinodular goiter (principal)
CPT/HCPCS: 76536

== ENCOUNTER 2023-10-13 00:38 | Day surgery (SDC) | payer OTHER, SELFPAY ==
[2023-09-16 10:19] VITALS: BMI 37.6
--- NOTE | 2023-10-09 10:28 | SUR.PREOP ---
Patient called regarding upcoming procedure. Reviewed preop instructions, appointment times, and procedure prep.
[2023-10-13 08:00] VITALS: BP 136/87; PULSE 98; RESP 16; TEMP 36.1; O2SAT 97; BMI 37.4
[2023-10-13] MEDS: LACTATED RINGERS 1,000 ML 150 ML IV CONT (08:22)
--- NOTE | 2023-10-13 09:01 | PM.HPGS ---
History of Present Illness History of Present Illness Consent: Risks, benefits, and alternatives have been discussed and questions answered. Patient agrees to proceed with procedure. Chief complaint: fam hx malignant neoplasm digestive organs Narrative: Kishan Rodriguez is a 58 year old female with last colonoscopy 5 years ago, father had rectal cancer Review of Systems Constitutional: Constitutional: Denies headache(s) and Denies weakness Eyes: Eyes: Denies blurry vision ENT: Reports Normal hearing present, Denies headache(s) and Denies neck pain Cardiovascular: Cardiovascular: Denies chest pain and Denies dyspnea Respiratory: Respiratory: Denies dyspnea Gastrointestinal: Gastrointestinal: Reports no additional gastrointestinal complaints Genitourinary: Genitourinary: Denies dysuria Musculoskeletal: Musculoskeletal: Denies neck pain Integumentary/Breasts: Skin/Breast: Denies dry skin Neurologic: Reports Normal hearing present, Denies headache(s) and Denies weakness Psychiatric: Psychiatric: Denies anxiety Endocrine: Endocrine: Denies change in body appearance Hematologic/Lymphatic: Hematologic/Lymphatic: Denies easy bleeding Allergic/Immunologic: Allergic/Immunologic: Denies urticaria PMFSH Past Medical History Medical History Anxiety Arthritis BMI greater than 40 Claustrophobia Complex tear of medial meniscus, current injury, left knee, subsequent encounter Enlarged lymph nodes Family history of coronary artery disease Gastroesophageal reflux disease without esophagitis Hyperthyroidism Hypothyroidism Left knee DJD Major depressive disorder with single episode, in partial remission AMIRAH (obstructive sleep apnea) Osteoarthritis Pneumonia Psoriasis Right knee DJD Vertigo Vitamin B12 deficiency 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) Weight gain Surgical History Surgical History H/O arthroscopy of left knee Family History Family History Mother Hypertension Grandparent Hypertension Carcinoma of colon, Onset Age: 60 Family history of coronary artery disease Father Family history of malignant neoplasm of gastrointestinal tract, Onset Age: 60 Sibling Family history of lupus erythematosus Other Family history of gout Family history of malignant neoplasm Social History Social History Smoking packs per day: 1 Smoking cigarettes per day: 20.0 Years smoked: 25 Smoking pack-years: 25.00 Smoking status: Former smoker Tobacco type: cigarettes Second hand tobacco smoke exposure: No Smoking end date: 09/07/12 Alcohol intake: current Alcohol use details: rare use Substance use: never Substance use type: does not use Lack of Transportation: No Lack of Food: Never True Current Housing: I Have Housing Concerned About Future Housing: No Difficulty Paying Gas/Electric Bills: No Difficulty Paying for Meds: No Currently Unemployed: No Difficulty w/ Childcare or Family Care: No Living arrangements: with family Occupation/Education: occupation 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
[2023-10-13 09:20] VITALS: BP 130/81; PULSE 84; RESP 16; O2SAT 100
[2023-10-13 09:30] VITALS: BP 123/74; PULSE 74; RESP 20; O2SAT 100
[2023-10-13 09:40] VITALS: BP 119/75; PULSE 84; RESP 20; O2SAT 100
--- NOTE | 2023-10-26 14:53 | WPDANESEPPF ---
Anes - Initial Pre Proc Eval Procedure: Operation Date: 10/13/23 09:30 Proposed Procedures p Colonoscopy - Sung Cruz MD Date/Time: 10/26/23 14:53 Surgeon: Sung Cruz MD Pre Op Diagnosis: fam hx malignant neoplasm digestive organs Patient Data Age: 58 Gender: F Height: 1.7 m Weight: 108.4 kg Last Vital Signs Temp 97.0 F L 10/13/23 08:00 Pulse 84 10/13/23 09:40 Resp 20 10/13/23 09:40 BP 119/75 10/13/23 09:40 Pulse Ox 100 10/13/23 09:40 O2 Del Method Room Air 10/13/23 09:40 Allergies Allergy/AdvReac Type Severity Reaction Status Date / Time mold Allergy Unknown Unknown Verified 10/19/23 09:20 pollen Allergy Unknown Unknown Uncoded 10/19/23 09:20 seasonal allergies Allergy Unknown Unknown Uncoded 10/19/23 09:20 Home Medications Medication Instructions Recorded Confirmed Type ascorbic acid (vitamin C) 250 mg 250 mg PO DAILY 03/06/22 10/19/23 History chewable tablet cholecalciferol (vitamin D3) 125 125 mcg PO DAILY 03/06/22 10/19/23 History mcg (5,000 unit) capsule ferrous sulfate 325 mg (65 mg 325 mg PO DAILY 03/06/22 10/19/23 History iron) tablet mecobalamin (vitamin B12) 1,000 1,000 mcg PO DAILY 03/06/22 10/19/23 History mcg chewable tablet apremilast 30 mg tablet (Otezla) 30 mg PO BID 09/16/23 10/19/23 History diclofenac sodium 75 mg 75 mg PO DAILY 09/16/23 10/19/23 History tablet,delayed release halobetasol propionate 0.01 1 applic topical DAILY 09/16/23 10/19/23 History %-tazarotene 0.045 % lotion (Duobrii) semaglutide (weight loss) 1 mg/0.5 1 mg subcut WEEKLY 09/16/23 10/19/23 History mL subcutaneous pen injector (Wegovy) amoxicillin 875 mg-potassium 1 tablet PO BID 10 days #20 tabs 10/19/23 10/19/23 Rx clavulanate 125 mg tablet oxybutynin chloride 5 mg 5 mg PO DAILY #90 tabs 10/19/23 10/19/23 Rx tablet,extended release 24 hr sertraline 100 mg tablet 100 mg PO DAILY #90 tabs 10/19/23 10/19/23 Rx Patient hx anesthesia problems: none Family hx anesthesia problems: none Results Review: All pre-operative results and documents have been reviewed as part of the pre-operative evaluation. 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) Weight gain Surgical History Surgical History H/O arthroscopy of left knee Family History Family History Mother Hypertension Grandparent Hypertension Carcinoma of colon, Onset Age: 60 Family history of coronary artery disease Father Family history of malignant neoplasm of gastrointestinal tract, Onset Age: 60 Sibling Family history of lupus erythematosus Other Family history of gout Family history of malignant neoplasm Social History Social History Smoking packs per day: 1 Smoking cigarettes per day: 20.0 Years smoked: 25 Smoking pack-years: 25.00 Smoking status: Former smoker Tobacco type: cigarettes Second hand tobacco smoke exposure: No Smoking end date: 09/07/12 Alcohol intake: current Alcohol use details: rare use Substance use: never Substance use type: does not use Lack of Transportation: No Lack of F
== END 2023-10-13 09:49 | disposition home or self-care (01) ==
PROVIDERS: PCP Family Medicine; Visit Provider Internal Medicine Gastroenterology
PROC: 0DJD8ZZ Inspection of Lower Intestinal Tract, Via Natural or Artificial Opening Endoscopic (ICD-10-PCS; CPT 45378; principal; 2023-10-13 09:30)
DX: Z12.11 Encounter for screening for malignant neoplasm of colon (principal); K57.30 Diverticulosis of large intestine without perforation or abscess without bleeding; Z80.0 Family history of malignant neoplasm of digestive organs; G47.33 Obstructive sleep apnea (adult) (pediatric); K21.9 Gastro-esophageal reflux disease without esophagitis; F32.4 Major depressive disorder, single episode, in partial remission; Z87.891 Personal history of nicotine dependence; Z79.85 Long-term (current) use of injectable non-insulin antidiabetic drugs
CPT/HCPCS: 45378; J2704; J7120

== ENCOUNTER 2023-10-28 12:24 | Outpatient (CLI) | payer OTHER, SELFPAY ==
--- NOTE | ~2023-10-28 | US_ITS ---
EXAMINATION: US FNA w image guidance DATE: 10/28/2023 13:52 INDICATION: Nontoxic single left thyroid nodule TECHNIQUE: A time-out was performed to verify the patient's name, date of , and procedure to be performed . The procedure and its benefits and risks were discussed with the patient. Risks specifically discus sed included bleeding and infection. The patient understood the risks and agreed to proceed. The neck was prepped and draped in the usual sterile manner. 3 mL 1% lidocaine was used for local anesthesia . Access passes were made with a 25G needle into the lesion. Appropriate needle location was docume nted with continuous sonographic guidance. A sterile bandage was applied. There were no immediate c omplications. FINDINGS: Grayscale ultrasound images demonstrate biopsy needles advanced into a 2.2 cm TI RADS left thyroid no dule. IMPRESSION: 1. Successful ultrasound-guided fine needle aspiration of the 2.2 cm TI RADS 4 left thyroid nodule. Reviewed, dictated and finalized at location A. SECURITY
== END 2023-10-28 12:25 | disposition home or self-care (01) ==
PROVIDERS: PCP Family Medicine; Visit Provider Physician Assistant
DX: E04.1 Nontoxic single thyroid nodule (principal)
CPT/HCPCS: 10005; 88172; 88173; 88305

== ENCOUNTER 2023-11-11 08:35 | Outpatient (CLI) | payer OTHER, SELFPAY ==
--- NOTE | ~2023-11-11 | DEXA_ITS ---
Bone Density Report Name: YAA GOULD Age: 58 Sex: Female Ethnicity: White Date of : 1965 Indication: postmenopausal; screening for osteoporosis; height loss; history of glucocorticoids; Referring Provider: BRAXTON SHEN Study: Bone densitometry was performed. Exam Date: November 11, 2023 Accession number: [id number] Bone Density: Region BMD T-score Z-score Classification AP Spine (L1-L4) 1.010 -0.3 0.9 Normal Femoral Neck (Left) 0.734 -1.0 0.1 Normal Total Hip (Left) 0.911 -0.3 0.5 Normal Femoral Neck (Right) 0.777 -0.7 0.5 Normal Total Hip (Right) 0.925 -0.1 0.7 Normal Total Hip Mean 0.918 -0.2 0.6 Normal World Health Organization criteria for BMD impression classify patients as: Normal (T-score at or above -1.0), Osteopenia (T-score between -1.0 and -2.5), or Osteoporosis (T-score at or below -2.5). 10-year Fracture Risk: FRAX not reported because: All T-scores for Spine Total, Hip Total, Femoral Neck at or above -1.0 Clinical Information Provided by Patient: Has taken Glucocorticoids Has used the following medications: Vitamin D Patient maximum height was 68 Menopause Age: 51 No regular weight bearing exercise Drinks caffeinated beverages Onset of menses at age 13 Number of children 3 Impression: The patient has normal bone mass. The patient has risk factors, including: history of glucocorticoid therapy. Discussion: BONE DENSITY IS ABOVE THE MINIMUM DESIRABLE LEVEL AT ALL SKELETAL SITES TESTED. This patient?s bone mineral density is above the minimum desirable level (T-score -1.0 or better) at all sites measured. The patient should follow a healthful lifestyle (good nutrition with adequate calcium and vitamin D, and appropriate weight-bearing exercise). Follow-Up: Consider repeating this study in 5 years or sooner if there is some new clinical indication. Reported by: FERNANDA on 11/11/2023 8:56:00 AM. Reviewed, dictated and finalized at location [place]
== END 2023-11-11 08:36 ==
LOC: MICIMG 08:36
PROVIDERS: PCP Family Medicine; Visit Provider Family Medicine
DX: Z13.820 Encounter for screening for osteoporosis (principal); Z78.0 Asymptomatic menopausal state; Z92.241 Personal history of systemic steroid therapy
CPT/HCPCS: 77080

== ENCOUNTER 2024-05-26 10:07 | Outpatient (CLI) | payer OTHER, SELFPAY ==
--- NOTE | 2024-05-26 11:06 | ECG_ITS ---
Test Date: 2024-05-26 11:18:19 Measurements Intervals [place] Rate: 64 P: 80 MT: 152 QRS: 5 QRSD: 86 T: 20 QT: 407 QTc: 423 Interpretive Statements SINUS RHYTHM LOW QRS VOLTAGE IN PRECORDIAL LEADS BASELINE ARTIFACT- I, II, III, AVR, AVL, AVF, V1-V6 BORDERLINE ECG No previous ECG available for comparison Electronically Signed On 05-26-2024 11:23:22 CDT by Ayo Bernardo D.O.
[2024-05-26 12:16] LABS: Basophils Percent Auto 0.5 % (0.2-1.2); Eosinophils Absolute Auto 0.1 K/mm3 (0-0.3); Eosinophils Percent Auto 1.5 % (0-4.4); Hematocrit 39.4 % (37.0-47.0); Hemoglobin 12.6 g/dL (12.0-15.0); Lymphocytes Absolute Auto 1.72 K/mm3 (0.9-3.2); Lymphocytes Percent Auto 27.9 % (18.3-44.2); Mean Corpuscular Hemoglobin 29.8 pg (26-34); Mean Corpuscular Volume 93.1 fl (80-100); Mean Platelet Volume 12.3 fl (7.4-10.4); Monocytes Absolute Auto 0.4 K/mm3 (0.1-0.6); Monocytes Percent Auto 6.7 % (2.6-8.5); Neutrophils Absolute Auto 3.9 K/mm3 (1.3-6.7); Neutrophils Percent Auto 63.4 % (45.5-73.1); Platelet Count Result 234 k/mm3 (150-375); Red Blood Count 4.23 M/mm3 (4.2-5.4); Red Cell Distribution Width 14.3 % (11.5-14.5); White Blood Count 6.2 K/mm3 (4.5-10.0)
[2024-05-26 12:26] LABS: Albumin Level 4.3 g/dL (3.5-5.1); Anion Gap 8 mmol/L (4-12); Blood Urea Nitrogen 21 mg/dL (7-17); Calcium 9.1 mg/dL (8.4-10.2); Carbon Dioxide 29 mmol/L (22-30); Chloride 96 mmol/L (98-107); Estimated Glomerular Filt Rate > 60; Glucose 91 mg/dL (65-110); Potassium 3.7 mmol/L (3.4-5.0); Sodium 133 mmol/L (137-145)
[2024-05-26 12:33] LABS: Urine Cotinine NEGATIVE
[2024-05-26 12:47] LABS: Hemoglobin A1C 5.3 % (<5.7)
== END 2024-05-26 10:08 | disposition home or self-care (01) ==
LOC: ANHSURGERY 10:11
PROVIDERS: PCP Family Medicine; Visit Provider Orthopaedic Surgery
DX: Z01.818 Encounter for other preprocedural examination (principal); M17.11 Unilateral primary osteoarthritis, right knee; Z87.891 Personal history of nicotine dependence
CPT/HCPCS: 80048; 80307; 82040; 83036; 85025; 87081; 93005

== ENCOUNTER 2024-06-09 03:17 | Day surgery (SDC) | payer OTHER, SELFPAY ==
[2024-05-26 07:55] VITALS: BP 137/82; PULSE 66; RESP 16; TEMP 37.2; O2SAT 94
--- NOTE | 2024-05-26 09:48 | PC.NURSE ---
Report to the Outpatient Waiting Room, entrance under the green pavilion located off [facility], at time _06;00am__on date 06/09/24 . Planned Procedure Time: _07:30am .? Time changes happen often and if your time is changed the preop area will call you the afternoon before. - You and your visitor will be asked to self-screen and do not enter if you have any COVID symptoms. Please call surgeon if you need to reschedule. - A mask is optional within the hospital at this time. Patients may have clear liquids (water, carbonated beverages, clear teas, apple juice) until 3 hours prior to surgery with a maximum of 20 ounces. - No food from midnight until time of surgery and no smoking Take only the following medications with a SIP of water on the morning of surgery: _ Tyelenol DO NOT STOP ANY OF YOUR OTHER PRESCRIPTION MEDICATIONS PRIOR TO SURGERY EXCEPT THE FOLLOWING Medications to discontinue per physician Hold Diclofenac 7 days prior to surgery per Dr Farley Date to take last dose 06/01/24 Also to HOLD Ozetka 3 days prior to surgery per Dr Farley. Date to take last dose 06/05/24 Hold all vitamins, supplements, herbs and probiotics 3 days prior per Anesthesia. Date to take last dose 06/05/24. Please no make-up, nail lithuanian, hairspray, perfume, deodorant, or body powder the day of surgery.? No jewelry (including any body piercings) or valuables the day of surgery, leave them at home.? Please take a shower or bath the night before, or the morning of, surgery with an antibacterial soap.? Wear comfortable, loose fitting clothing.? - Jewelry must be removed prior to entering the operating room.? Rings and piercings that are not removed may be cut off. - The hospital will not accept responsibility for valuables.? - Please leave all valuables, including medications, at home the day of surgery. If you are going home after surgery, a licensed bull driver must drive you home.? - NO public transportation without another adult if you receive anesthesia. - We recommend that an adult stay with you for 24 hours following discharge. - We also recommend that you do not drive, make important decision, drink alcoholic beverages, or take any drugs that were not prescribed by your health care provider for at least 24 hours after your discharge time. Follow any additional instructions given to you from your surgeon. Telephone instructions given to _patient____and asked if any additional questions and then verbalized understanding. Patient advised to call surgeon office or pre surgery nurse liaison [phone] if any additional questions.
[2024-05-26 10:31] VITALS: BMI 36.8
--- NOTE | 2024-06-08 12:11 | PM.IMHP ---
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 Patient has been having symptoms in her knee for years. She has been taking diclofenac 75 mg b.i.d. for almost a year. She has had cortisone injections in the past. Last injection was over 10 months ago. Cortisone injections have not given her any benefit. The diclofenac did help some. Patient has severe medial compartment osteoarthritis in the knee. She is having pain on a daily basis and is somewhat debilitating at times. Patient feels at this point she would rather proceed with total knee arthroplasty rather continue nonsurgical treatment. Review of Systems Review of Systems: All systems reviewed & are unremarkable except as noted in HPI and below PMFSH Past Medical History Medical History Anxiety Arthritis BMI greater than 40 Claustrophobia Complex tear of medial meniscus, current injury, left knee, subsequent encounter Enlarged lymph nodes Family history of coronary artery disease Gastroesophageal reflux disease without esophagitis Hyperthyroidism Hypothyroidism Left knee DJD Major depressive disorder with single episode, in partial remission AMIRAH (obstructive sleep apnea) Osteoarthritis Pneumonia Psoriasis Right knee DJD Vertigo Vitamin B12 deficiency 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) Weight gain Surgical History Surgical History H/O arthroscopy of left knee H/O partial thyroidectomy Family History Family History Mother Hypertension Grandparent Hypertension Carcinoma of colon, Onset Age: 60 Family history of coronary artery disease Father Family history of malignant neoplasm of gastrointestinal tract, Onset Age: 60 Sibling Family history of lupus erythematosus Other Family history of gout Family history of malignant neoplasm Social History Social History Smoking packs per day: 1 Smoking cigarettes per day: 20.0 Years smoked: 25 Smoking pack-years: 25.00 Smoking status: Former smoker Tobacco type: cigarettes Second hand tobacco smoke exposure: No Smoking end date: 09/07/12 Additional smoking assessment comments: NO use of nicotine at all per pt currently Alcohol intake: current Alcohol use details: rare use Substance use: never Substance use type: does not use Do You Feel Safe in your Home?: Yes Lack of Transportation: No Lack of Food: Never True Current Housing: I Have Housing Concerned About Future Housing: No Difficulty Paying Gas/Electric Bills: No Difficulty Paying for Meds: No Currently Unemployed: No Education: Bachelor's Degree Difficulty w/ Childcare or Family Care: No Living arrangements: with family Additional living arrangements comments: Occupation/Education: occupation Additional occupation/education comments: [employer] Gender identity (if verbalized by the patient): Female Sexual Orientation (if Verbalized by the Patient): Straight or Heterosexual Spiritual care concerns: No Agree to blood products: Yes Meds Home Medications and Allergies Home Medications Medication Instructions Recorded Confirmed Type ascorbic acid (vitamin C) 250 mg 250 mg PO DAILY 03/06/22 06/01/24 History chewable tablet cholecalciferol (vitamin D3) 125 125 mcg PO DAILY 03/06/22 06/01/24 History mcg (5,000 unit) capsule mecobalamin (vitamin B12) 1,000 1,000 mcg PO DAILY 03/06/22 06/01/24 History mcg chewable tablet apremilast 30 mg tablet (Otezla) 30 mg PO BID 09/16/23 06/01/24 History halobetasol propionate 0.01 1 applic to
[2024-06-09] VITALS (12 sets, daily range): BP systolic 106–141; BP diastolic 59–77; PULSE 71–90; RESP 12–20; TEMP 36–36.9; O2SAT 95–100
--- NOTE | ~2024-06-09 | XR_ITS ---
EXAMINATION: [id number] DATE: 06/09/2024 10:59 INDICATION: Postoperative evaluation following right total knee arthroplasty. TECHNIQUE: Anteroposterior and lateral views of the right knee were obtained. COMPARISON: None. FINDINGS: Right total knee arthroplasty without patellar resurfacing appears well seated and in near anatomic a lignment. No fractures identified. Expected postoperative subcutaneous and intra-articular gas. IMPRESSION: 1. Right total knee arthroplasty, negative for postoperative purposes. Reviewed, dictated and finalized at location A.
[2024-06-09] MEDS: ACETAMINOPHEN 500 MG TABLET 1000 MG PO (06:26)
[2024-06-09] MEDS: LACTATED RINGERS 1,000 ML 30 ML IV CONT ×2 (06:35→10:58)
[2024-06-09] MEDS: VANCOMYCIN 1,500 MG/NS 500 ML BAG 250 MG IVPB (06:40)
--- NOTE | 2024-06-09 07:12 | WPDANESEPPF ---
Anes - Initial Pre Proc Eval Procedure: Operation Date: 06/09/24 07:30 Proposed Procedures p Right Total Knee Arthroplasty - Ilia Farley MD Date/Time: 06/09/24 07:12 Surgeon: Ilia Farley MD Pre Op Diagnosis: oa right knee Patient Data Age: 59 Gender: F Height: 1.7 m Weight: 106.5 kg Last Vital Signs Temp 37.2 C 05/26/24 07:55 Pulse 66 05/26/24 07:55 Resp 16 05/26/24 07:55 BP 137/82 05/26/24 07:55 Pulse Ox 94 05/26/24 07:55 O2 Del Method Room Air 05/26/24 07:55 Allergies Allergy/AdvReac Type Severity Reaction Status Date / Time ciprofloxacin Allergy Intermediate hives Verified 06/09/24 06:08 Penicillins Allergy Intermediate Vomiting Verified 06/09/24 06:08 Sulfa (Sulfonamide Allergy Mild Rash Verified 06/09/24 06:08 Antibiotics) mold Allergy Unknown sinus Verified 06/09/24 06:08 congestion pollen Allergy Mild congestion Uncoded 06/09/24 06:08 seasonal allergies Allergy Unknown congestion Uncoded 06/09/24 06:08 Home Medications Medication Instructions Recorded Confirmed Type ascorbic acid (vitamin C) 250 mg 250 mg PO DAILY 03/06/22 06/09/24 History chewable tablet cholecalciferol (vitamin D3) 125 125 mcg PO DAILY 03/06/22 06/09/24 History mcg (5,000 unit) capsule mecobalamin (vitamin B12) 1,000 1,000 mcg PO DAILY 03/06/22 06/09/24 History mcg chewable tablet apremilast 30 mg tablet (Otezla) 30 mg PO BID 09/16/23 06/09/24 History halobetasol propionate 0.01 1 applic topical DAILY 09/16/23 06/09/24 History %-tazarotene 0.045 % lotion (Duobrii) sertraline 100 mg tablet 100 mg PO DAILY #90 tabs 02/24/24 06/09/24 Rx solifenacin 10 mg tablet (Vesicare) 10 mg PO DAILY #90 tabs 02/24/24 06/09/24 Rx diclofenac sodium 75 mg 75 mg PO BID #60 tabs 05/04/24 06/09/24 Rx tablet,delayed release progesterone micronized 200 mg 200 mg PO QHS 05/04/24 06/09/24 History capsule (Prometrium) estradiol 0.05 mg/24 hr weekly 0.05 mg transdermal WEEKLY 05/26/24 06/09/24 History transdermal patch multivit with minerals-iron 18 1 tablet PO DAILY 05/26/24 06/09/24 History mg-folic ac 400 mcg-vit K 25 mcg tablet (Adults Multivitamin) roflumilast 0.3 % topical cream 1 applic topical DAILY 05/26/24 06/01/24 History (Zoryve) tapinarof 1 % topical cream (Vtama) 1 applic topical DAILY 05/26/24 06/01/24 History omeprazole 20 mg capsule,delayed 20 mg PO DAILY #90 caps 06/01/24 06/09/24 Rx release tirzepatide (weight loss) 2.5 2.5 mg (0.5 mL) subcut WEEKLY 4 06/07/24 06/09/24 Rx mg/0.5 mL subcutaneous solution weeks #2 mL (Zepbound) Patient hx anesthesia problems: post op nausea/vomiting (one time she was sick from anesthesia - zofran was given and worked) Family hx anesthesia problems: none Prior surgeries: thyroidectomy partial lobe Results Review: All pre-operative results and documents have been reviewed as part of the pre-operative evaluation. 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
--- NOTE | 2024-06-09 07:25 | WPDHPUPDATE1 ---
History and Physical Update Update Date/Time: 06/09/24 07:25 History and Physical has been reviewed, including an updated exam of the patient. There are NO changes in the patient's condition. Risks, benefits, and alternatives have been discussed and questions answered. Patient agrees to proceed with procedure.
[2024-06-09] MEDS: ceFAZolin 2 GM/D5W 50 ML 2 GM/50 ML BAG IVPB ×3 (07:46→22:55)
[2024-06-09] MEDS: ceFAZolin SODIUM 1 GM VIAL 3 GM (08:00)
[2024-06-09] MEDS: SODIUM CHLORIDE 0.9% IV 37.7 ML, MORPHINE SULFATE INJ (*CRX) 2 MG, ROPivacaine HCL 1% 2... INFILTRATE (08:00)
[2024-06-09] MEDS: GENTAMICIN BONE CEMENT REFOBACIN 1 EACH TOPICAL (09:47)
[2024-06-09] MEDS: ceFAZolin SODIUM 1 GM VIAL 2 GM IV PUSH (10:02)
[2024-06-09] MEDS: TRANEXAMIC ACID 1,000 MG/10 ML AMPUL 1000 MG IV PUSH (10:03)
[2024-06-09] MEDS: KETOROLAC 15 MG/ML VIAL (*BKC) IV PUSH ×3 (10:04→22:43)
[2024-06-09] MEDS: fentaNYL CITRATE INJ (*CRX) 100 MCG/2 ML VIAL 25 MCG IV PUSH ×8 (11:13→11:58)
--- NOTE | 2024-06-09 11:13 | PM.OP ---
Procedure Note - Brief Procedure Note - Brief Date of procedure: 06/09/24 oa right knee Procedure performed: right total knee arthroplasty Surgeon: RANDY Slaughter Findings: 59-year-old female who underwent right total knee arthroplasty on 06/09. I was involved in the procedure including positioning the patient on the OR table and 1st assisting through the time surgery. Total time spent was 4 hours
--- NOTE | 2024-06-09 11:21 | W.PM.PROC2 ---
Procedure Note - Detailed Date of Procedure 06/09/24 Pre-op Diagnosis oa right knee, obesity with BMI of 38 Post-op Diagnosis Same Procedure Performed Right total knee arthroplasty Surgeon Ilia Farley MD Pull Up Hand Eugenio Anesthesia General Description of Procedure Patient was brought to the operating room and general anesthesia was administered. The right knee was prepped draped usual fashion. She received 2 g of Ancef and weight based vancomycin 1 g of tranexamic acid preoperatively. Her elevated weight made the case more difficult adding approximately 35 minutes to the procedure. Limb was exsanguinated tourniquet elevated to 300 mmHg. A 7 in longitudinal incision was made in the vastus medialis splitting approach utilized. The patella had intact articular cartilage with mild chondromalacia in I thought was most suitable for non resurfacing. A minimal lateral facetectomy was performed. Partial excision of infrapatellar fat pad was carried out as well as a quadriceps synovectomy. A guide wojciech was inserted on femoral canal after aspiration of canal contents using the 5 degree valgus cutting bushing 8 mm of bone removed the distal femur. We chose 8 mm because she had a fair amount of pseudolaxity in extension. Next the tibial plateau was cut. We made a skim cut of under the low point of the medial tibial plateau. Meniscal remnants were excised the PCL was recessed. The flexion gap was assessed and it was far too tight to accept the 8 mm spacer in flexion medially. An additional 2-3 mm of bone removed from the tibial plateau. Flexion gap measured 9 mm medially 12 mm laterally. The sizing guide was placed on the distal femur set at 4? of external rotation which matched Whitesides line. Posterior referencing pinholes were placed. The femur was cut to a size 65 which was mm too wide on each side. We downsized to the size 62.5 which gave a nice fit flush with the anterior cortex. Posterior osteophytes removed from the femur. Tibia was sized to a size 71 which fit line to line anteromedial and posterolateral. This was punched. On trialing with a 12 insert we had 1 mm of lateral opening at 90? 2 mm of medial and with the arthrotomy towel clip 1 mm of medial opening appropriate anterior posterior drawer stability. We trialed with the 13 it was too tight 90?. In extension the knee came out to full extension with negative bounce with 0.5 mm medial opening 2-3 mm of lateral opening. There was central patellar tracking throughout range of motion. We put the tourniquet down earlier at 90 minutes and the limb was re-exsanguinated tourniquet elevated. Step drill was used to make perforations the tibial plateau and distal femur the bony surfaces thoroughly irrigated and dried. 2 packages of methylmethacrylate were mixed 1 containing the gentamicin powder the cement applied the 71 vanguard tibial tray and the 62.5 right CR femoral component cement applied the tibial plateau and pressurized tibial component fully seated cement applied the femur the femoral component fully seated the knee brought into extension with a 13 mm 5 and 1 insert for pressurization. Tourniquet was released. After cement hardening excess cement was sought for removed and hemostasis was achieved. She received an additional 2 g of Ancef 1 g of TXA. We trialed again and again the 12 was appropriate in all positions. The real 12 was placed without difficulty. Locked with a locking pin range of motion stability patellar tracking reconfirmed. Local anesthetic cocktail was injected in the wound again irrigated with Ancef solution. The arthrotomy was closed with 2. Vicryl and 1. Unidirectional barbed Stratafix suture the split closed with 1. Vicryl the skin closed with 2 subcutaneous Vicryl 3-0 subcuticular Monocryl and glue EBL was 250 cc. There were no complications he was transferred postop recovery room in stable condition. [facility] Billing Surgery - Charge Forward: Surgery Billing (Rig
[2024-06-09] MEDS: ACETAMINOPHEN 325 MG TABLET 650 MG PO ×3 (13:07→20:06)
[2024-06-09] MEDS: MORPHINE SULFATE (*CRX) 2 MG/ML INJ IV PUSH (13:07)
[2024-06-09] MEDS: oxyCODONE HCL (*CRX) 5 MG TAB IR PO ×3 (13:08→22:43)
[2024-06-09] MEDS: SODIUM CHLORIDE 0.9% IV 1,000 ML 125 ML IV CONT (13:18)
--- NOTE | 2024-06-09 13:29 | PC.NURSE ---
This patient, Kishan Rodriguez, was admitted to [facility] Surg Room 325-01. Patient/family oriented to hospital policies and general routines including ID bracelet, bed and alarms, visiting hours, pain management, procedures, bathroom and other care routines, personal items, smoking policy, room service/diet, and visiting hours. Information on how to activate the Rapid Response Team has been discussed. Patient/Family are encouraged to report perceived risks to care and to ask questions if they do not understand what they are told or what they should do.
[2024-06-09] MEDS: SENNA/DOCUSATE SODIUM TABLET 2 TAB PO (16:13)
[2024-06-09] MEDS: VANCOMYCIN 1,000 MG/NS 250 ML 1,000 MG/250 ML BAG 250 MG IVPB (17:35)
[2024-06-09] MEDS: FAMOTIDINE 20 MG TABLET PO (20:06)
[2024-06-10 01:59] VITALS: BP 105/55; PULSE 56; RESP 16; TEMP 36.6; O2SAT 97
[2024-06-10] MEDS: ACETAMINOPHEN 325 MG TABLET 650 MG PO ×4 (02:40→12:49)
[2024-06-10] MEDS: oxyCODONE HCL (*CRX) 5 MG TAB IR PO ×4 (02:40→12:50)
[2024-06-10 05:47] VITALS: BP 104/59; PULSE 66; RESP 16; TEMP 36.7; O2SAT 99
[2024-06-10] MEDS: VANCOMYCIN 1,000 MG/NS 250 ML 1,000 MG/250 ML BAG 250 MG IVPB (06:14)
[2024-06-10 07:02] LABS: Basophils Percent Auto 0.3 % (0.2-1.2); Eosinophils Percent Auto 0.4 % (0-4.4); Hematocrit 33.7 % (37.0-47.0); Hemoglobin 10.8 g/dL (12.0-15.0); Immature Granulocyte Absolute 0.05 K/mm3 (0.00-0.031); Immature Granulocyte Percent A 0.5 % (0-0.5); Lymphocytes Absolute Auto 2.02 K/mm3 (0.9-3.2); Lymphocytes Percent Auto 19.6 % (18.3-44.2); Mean Corpuscular Hemoglobin 29.9 pg (26-34); Mean Corpuscular Volume 93.4 fl (80-100); Mean Platelet Volume 11.1 fl (7.4-10.4); Monocytes Absolute Auto 0.7 K/mm3 (0.1-0.6); Monocytes Percent Auto 7.1 % (2.6-8.5); Neutrophils Absolute Auto 7.5 K/mm3 (1.3-6.7); Neutrophils Percent Auto 72.1 % (45.5-73.1); Platelet Count Result 194 k/mm3 (150-375); Red Blood Count 3.61 M/mm3 (4.2-5.4); Red Cell Distribution Width 14.6 % (11.5-14.5); White Blood Count 10.3 K/mm3 (4.5-10.0)
[2024-06-10 07:11] LABS: Anion Gap 6 mmol/L (4-12); Blood Urea Nitrogen 15 mg/dL (7-17); Calcium 8.7 mg/dL (8.4-10.2); Carbon Dioxide 29 mmol/L (22-30); Chloride 103 mmol/L (98-107); Estimated CRCL calculation 109 ml/min; Estimated Glomerular Filt Rate > 60; Glucose 97 mg/dL (65-110); Potassium 3.4 mmol/L (3.4-5.0); Sodium 138 mmol/L (137-145)
--- NOTE | 2024-06-10 07:36 | PM.PNORT ---
Subjective Subjective Date/Time Seen: 06/10/24 07:36 Interval history: Postop day 1 patient is alert. She is afebrile vital signs are stable. Dressing is intact and dry. Pain overall is well controlled. Patient was a yesterday walking with physical therapy and doing exercise. She remains very comfortable this morning. Morning labs are noted. The plan will be to have patient work with therapy this morning and if she continues do well she will be discharged home late this morning. Objective Data Vital Signs Vital Signs: Vital Signs - 24 hr 06/09/24 10:58 06/09/24 11:25 06/09/24 11:40 Temperature 98.5 F Pulse Rate 90 84 83 Respiratory Rate 16 14 14 Blood Pressure 112/63 116/66 119/67 Pulse Oximetry 100 100 95 Oxygen Delivery Simple Face Mask Room Air Room Air Oxygen Flow Rate 6 06/09/24 11:55 06/09/24 12:10 06/09/24 11:10 Temperature 97.6 F Pulse Rate 80 73 78 Respiratory Rate 14 12 16 Blood Pressure 119/73 115/76 109/64 Pulse Oximetry 97 97 100 Oxygen Delivery Nasal Cannula Nasal Cannula Simple Face Mask Oxygen Flow Rate 2 2 6 06/09/24 12:25 06/09/24 14:15 06/09/24 15:00 Temperature Pulse Rate 73 Respiratory Rate 12 Blood Pressure 115/76 Pulse Oximetry 97 Oxygen Delivery Nasal Cannula Room Air Room Air Oxygen Flow Rate 2 06/09/24 13:05 06/09/24 13:20 06/09/24 18:21 Temperature 97.4 F L 97.6 F 96.8 F L Pulse Rate 79 71 75 Respiratory Rate 16 16 20 Blood Pressure 127/64 125/70 106/59 L Pulse Oximetry 98 97 95 Oxygen Delivery Oxygen Flow Rate 06/09/24 20:27 06/09/24 20:00 06/10/24 01:59 Temperature 98.3 F 97.9 F Pulse Rate 79 56 L Respiratory Rate 16 16 Blood Pressure 141/76 H 105/55 L Pulse Oximetry 99 97 Oxygen Delivery Room Air Oxygen Flow Rate 06/10/24 05:47 Temperature 98.1 F Pulse Rate 66 Respiratory Rate 16 Blood Pressure 104/59 L Pulse Oximetry 99 Oxygen Delivery Oxygen Flow Rate Intake/Output Intake/Output: Intake & Output 06/07/24 06/08/24 06/09/24 06/10/24 23:59 23:59 23:59 23:59 Intake Total 1172 350 Balance 1172 350 Meds/Results Medications: Active Medications Generic Name Dose Route Start Last Admin Trade Name Freq PRN Reason Stop Dose Admin Acetaminophen 650 mg 06/09/24 14:00 06/10/24 06:14 Acetaminophen 325 Mg Tablet PO 650 mg Q4H MARTIN Administration Apixaban 2.5 mg 06/10/24 09:00 Apixaban 2.5 Mg Tablet PO 06/21/24 21:01 Q12HR MARTIN Cefdinir 300 mg 06/10/24 14:00 Cefdinir 300 Mg Capsule PO Q12HR MARTIN Diphenhydramine HCl 25 mg 06/09/24 12:36 Diphenhydramine Hcl Inj 50 Mg/Ml Vial IV PUSH Q6H PRN Itching Famotidine 20 mg 06/09/24 21:00 06/09/24 20:06 Famotidine 20 Mg Tablet PO 20 mg Q12HR [facility] Administration Cefazolin Sodium 2 gm in 50 mls @ 100 mls/hr 06/09/24 16:00 06/09/24 23:25 Ancef 2 Gm/D5w 50 Ml IVPB 06/10/24 08:29 Infused Q8H [facility] Infusion Meloxicam 7.5 mg 06/10/24 08:00 Meloxicam 7.5 Mg Tablet PO DAILY@0800 [facility] Morphine Sulfate 2 mg 06/09/24 12:36 06/09/24 13:07 Morphine Sulfate (*Crx) 2 Mg/Ml Inj IV PUSH 2 mg Q2H PRN Administration Breakthrough Pain Rated 4-6 or NPO Naloxone HCl 0.1 mg 06/09/24 12:36 Naloxone Hcl 0.4 Mg/Ml Vial IV PUSH Q2M PRN Opiate Reversal Non-Formulary Medication 2.5 mg 06/16/24 09:00 Tirzepatide (Weight Loss) [Zepbound] SUB-Q 07/16/24 08:59 WEEKLY [facility] Ondansetron HCl 4 mg 06/09/24 12:36 Ondansetron Inj 4 Mg/2 Ml Vial IV PUSH Q4H PRN Nausea And Vomiting Oxycodone HCl 5 mg 06/09/24 14:00 06/10/24 06:14 Oxycodone Hcl (*Crx) 5 Mg Tab Ir PO 5 mg Q4H MARTIN Administration Oxycodone HCl 5 mg 06/09/24 12:36 Oxycodone Hcl (*Crx) 5 Mg Tab Ir PO Q4H PRN Pain Rated 7-10 Polyethylene Glycol 17 gm 06/10/24 09:00 Polyethylene Glycol 3350 17 Gm Powd.Pack PO QAM MARTIN Senna/Docusate Sodium 2 tab 06/09
[2024-06-10] MEDS: ceFAZolin 2 GM/D5W 50 ML 2 GM/50 ML BAG IVPB (08:59)
[2024-06-10] MEDS: FAMOTIDINE 20 MG TABLET PO (09:02)
[2024-06-10] MEDS: MELOXICAM 7.5 MG TABLET PO (09:02)
[2024-06-10] MEDS: CHOLECALCIFEROL 5,000 UNITS TABLET 5000 UNITS PO (09:02)
[2024-06-10] MEDS: SOLIFENACIN 5 MG TABLET 10 MG PO (09:02)
[2024-06-10] MEDS: SENNA/DOCUSATE SODIUM TABLET 2 TAB PO (09:03)
[2024-06-10] MEDS: polyethylene glycoL 3350 17 GM POWD.PACK PO (09:03)
[2024-06-10] MEDS: SERTRALINE HCL 50 MG TABLET 100 MG PO (09:03)
[2024-06-10] MEDS: APIXABAN 2.5 MG TABLET PO (09:03)
--- NOTE | 2024-06-10 10:07 | WPDANESPN ---
Anes - Prog Note Post-Op Date/Time: 06/10/24 10:07 Cardiovascular status: normal Respiratory status: normal Airway patency: baseline Mental status: baseline Post-Op hydration status: normal Vital Signs: Last Vital Signs Temp 36.7 C 06/10/24 05:47 Pulse 66 06/10/24 05:47 Resp 16 06/10/24 05:47 BP 104/59 L 06/10/24 05:47 Pulse Ox 99 06/10/24 05:47 O2 Del Method Room Air 06/09/24 20:00 O2 Flow Rate 2 06/09/24 12:25 Pain Score (VAS): 12/15 I/O: Intake & Output 06/09/24 06/10/24 06/10/24 23:59 07:59 15:59 Intake Total 772 350 240 Balance 772 350 240 Laboratory Tests 06/10/24 06:43 06/10/24 06:43 06/10/24 06:43 WBC 10.3 H RBC 3.61 L Hgb 10.8 L Hct 33.7 L MCV 93.4 MCH 29.9 MCHC 32.0 RDW 14.6 H Plt Count 194 MPV 11.1 H Immature Gran % (Auto) 0.5 Neut % (Auto) 72.1 Lymph % (Auto) 19.6 [place] % (Auto) 7.1 Eos % (Auto) 0.4 Baso % (Auto) 0.3 Lymph # (Auto) 2.02 [place] # (Auto) 0.7 H Eos # (Auto) 0.0 Baso # (Auto) 0.0 Abs Immat Gran (auto) 0.05 H Absolute Neuts (auto) 7.5 H Absolute Nucleated RBC 0.000 Nucleated RBC % 0.0 Sodium 138 Potassium 3.4 Chloride 103 Carbon Dioxide 29 Anion Gap 6 BUN 15 D Creatinine 0.60 L Estim Creat Clear Calc 109 Estimated GFR > 60 Glucose 97 Calcium 8.7 Post-procedural complaints: none Patient Feedback: Patient satisfied with anesthetic care.
[2024-06-10 10:21] VITALS: BP 101/51; PULSE 74; RESP 18; TEMP 36.2; O2SAT 98
--- NOTE | 2024-06-10 10:34 | PM.DS ---
DS: Admitting Diagnosis Discharge Date 06/10 Admitting Diagnosis right knee DJD knee DS: Discharge Diagnosis Discharge Diagnosis (1) History of total right knee replacement (TKR): Code(s): Z96.651 - Presence of right artificial knee joint Status: Acute DS: Summary Hospital Course Hospital Course: 59-year-old female underwent right total knee arthroplasty on 06/09. She underwent the procedure without complications. Postoperatively she has been afebrile vital signs are stable. Neurovascularly she is intact. Dressing is dry and intact. She was up walking with physical therapy the day of surgery and is comfortable. She is on Eliquis for DVT prophylaxis. She is on Tylenol every 4 hours and oxycodone 5 mg every 4 hours for pain control. She is also on meloxicam 7.5 mg daily. She has an allergy to sulfa drugs. Morning of postop day 1 patient was alert. Pain was well controlled. Patient was anxious to go home. She was advised when she does go home she is to keep leg elevated to prevent swelling in the knee. She is to do her exercises every hour while awake at home. She has outpatient therapy starting on Thursday. She will also go home with a 1 week course of Omnicef as well as Senokot and MiraLax. Patient was advised any questions or concerns she is to call the office otherwise we will see her at her appointments. Time Spent with Patient Time attestation: Total time spent providing and/or coordinating discharge services: DS: Data Data Completed and Pending Labs on day of discharge: Labs from last 24 hours 06/10/24 06:43 WBC 10.3 H RBC 3.61 L Hgb 10.8 L Hct 33.7 L MCV 93.4 MCH 29.9 MCHC 32.0 RDW 14.6 H Plt Count 194 MPV 11.1 H Immature Gran % (Auto) 0.5 Neut % (Auto) 72.1 Lymph % (Auto) 19.6 [place] % (Auto) 7.1 Eos % (Auto) 0.4 Baso % (Auto) 0.3 Lymph # (Auto) 2.02 [place] # (Auto) 0.7 H Eos # (Auto) 0.0 Baso # (Auto) 0.0 Abs Immat Gran (auto) 0.05 H Absolute Neuts (auto) 7.5 H Absolute Nucleated RBC 0.000 Nucleated RBC % 0.0 Sodium 138 Potassium 3.4 Chloride 103 Carbon Dioxide 29 Anion Gap 6 BUN 15 D Creatinine 0.60 L Estim Creat Clear Calc 109 Estimated GFR > 60 Glucose 97 Calcium 8.7 Discharge Plan Discharge Patient Disposition: Home, Self-Care Discharge Instructions: SHABBIR MEADOWS M.D [facility] [address] [address] [address] [place] [address] POST-OPERATIVE DISCHARGE INSTRUCTIONS TOTAL KNEE ARTHROPLASTY 1. When resting, do not rest in the chair.When resting, lie on your back, with back flat on the couch or bed, with leg elevated above heart to minimize swelling. You may put a pillow under your head. . Significant swelling could indicate a blood clot and if this occurs call the office (or go to the ER) to have a venous ultrasound. Therefore, do not rest in a chair. 2. At least five times a day spend several minutes stretching your knee into flexion while sitting in the chair and also stretching your knee out straight The abilities to bend your knee fully and straighten your knee fully are two most important knee functions to focus on during your recovery. 3. It is ok to sit in chair to eat, use the toilet and receive a guest and to do your stretching exercises, but, sitting in a chair will cause your leg to swell. Therefore, avoid additional time sitting in the chair. and don't rest in the chair. 4. Wound Care: Nursing will give you an additional Mepilex dressing at the time of discharge. Patient to remove the dressing and apply a new Mepilex dressing at home 7 days after surgery and leave the dressing on until seen in office. It is normal to see a small amount of blood on the silver pad of the Mepilex dressing. Its designed to hold small spots of blood. However, if the blood reaches the edge of the pad up to the boarder of the clear membrane that surrounds the pad, the pad is saturated and the Mep
== END 2024-06-10 13:00 | disposition home or self-care (01) ==
LOC: ANHSURGERY 05:56 → ANH3MEDSUR 12:41
PROVIDERS: Physician Assistant Surgical; PCP Family Medicine; Visit Provider Orthopaedic Surgery
PROC: (CPT 27447; principal; 2024-06-09 07:30)
DX: M17.11 Unilateral primary osteoarthritis, right knee (principal); M22.41 Chondromalacia patellae, right knee; M25.761 Osteophyte, right knee; F41.9 Anxiety disorder, unspecified; F40.240 Claustrophobia; K21.9 Gastro-esophageal reflux disease without esophagitis; E05.90 Thyrotoxicosis, unspecified without thyrotoxic crisis or storm; E03.9 Hypothyroidism, unspecified; F32.89 Other specified depressive episodes; G47.33 Obstructive sleep apnea (adult) (pediatric); E53.8 Deficiency of other specified B group vitamins; E66.9 Obesity, unspecified; Z68.37 Body mass index [BMI] 37.0-37.9, adult; Z98.890 Other specified postprocedural states; Z87.891 Personal history of nicotine dependence; Z80.0 Family history of malignant neoplasm of digestive organs; Z82.49 Family history of ischemic heart disease and other diseases of the circulatory system
CPT/HCPCS: 27447; 36415; 73560; 80048; 85025; 86850; 86900; 86901; 97110; 97116; 97161; 97165; 97530; 97535; A9270; C1713; C1776; J0171; J0690; J1100; J1596; J1885; J2003; J2250; J2270; J2371; J2405; J2704; J2795; J3010; J3370; J7030; J7120

== ENCOUNTER 2024-07-18 11:00 | Outpatient (RCR) | payer OTHER, SELFPAY ==
--- NOTE | 2024-06-13 09:56 | OPREHPOC ---
Outpatient Therapy Plan of Care This is a Multidisciplinary Plan of Care that may contain components documented by all disciplines (PT, OT, and ST.) PT Problem 1 PT Problem #1 Knowledge Deficit PT Goal 1 Goal / Goal Update *indep with HEP * correct use of assistive device Target Visit 10 PT Problem 2 PT Problem #2 Pain PT Goal 1 Goal / Goal Update 1* decrease pain rating to 4/10 at worst 2* self assessment LE functional scale rating of 50% limitation in activity level Target Visit 10 PT Problem 3 PT Problem #3 Impaired Range of Motion PT Goal 1 Goal / Goal Update improve R knee ROM, to normalize gait pattern, ability to perform stairs and sit/stand transfers: active sitting ROM 1* flexion 115' 2* extension 0' decrease edema over knee to improve ROM with circumferential measurement of knee 3* superior patella 50 cm 4* mid joint line 47 cm 5* inferior to patella 40 cm Target Visit 10 PT Problem 4 PT Problem #4 Impaired Functional Mobility PT Goal 1 Goal / Goal Update 1* 2 minute walking test distance of 300' with assistive device 2* 4 steps with 1 hand railing and alternate step pattern Target Visit 10 PT Problem 5 PT Problem #5 Impaired Strength PT Goal 1 Goal / Goal Update increase strength of R LE, to improve mobility and transfer skills 1* sit/stand 5 reps without use of UE from 18 seat 2* supine/sit transfer with good speed/ not labored with performing 3* pt report no issues with getting up from her couch at home Target Visit 10
--- NOTE | 2024-06-13 09:57 | PTOPEVAL1 ---
Assessment and note entered by Tracey Troncoso, PT Evaluation Information Assessment Status Evaluation ICD-10 Condition Codes (PT) M25.561,Difficulty Walking R26.2,R26.9,Weakness R53.1,Z47.89 Other ICD-10 Condition Codes ( S/P R TKR PT) Onset 06-09-24 Subjective Information first few days after surgery--pain was really bad, but able to get some pain meds from Dr and doing better; have been doing the walking every hour and the exercises; difficulty getting on/off couch and toliet, sometimes has to assist her; she is wearing a gait belt to dept; they have ordered arm rest for toliet; Activity: prior to surgery- did not use an assistive device; 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 also have pain in L knee Assessment PT Clinical Summary Kishan had R TKR 4 days ago. Her is supportive and assisting her at home. Prior to surgery, she was active and working- job standing and walking, did not use an assistive device. LE functional scale self rating of 91% limitation in activity level. Difficulty with walking, getting up from the toliet and couch and has not done stairs at home, can avoid them. With the evaluation: using wheeled walker, with 2 minute walking test distance of 160'; R knee active ROM (-20') to 80' and passive stretch (-10') to 90'; circumferential measurements of R knee compared to L are 3-5 cm larger at 3 measurements. Skilled PT services are indicated to increase R knee ROM and strength, gait and balance retraining , with progression to lesser assistive device and progression of HEP. Plan of Care Interventions Electrical Stimulation,Manual Therapy,Neuro Re- education,Patient/Caregiver Education,Therapeutic Activities,Therapeutic Exercise,Other Other Interventions taping PT Services Indicated Yes Treatment Frequency and 2x/wk for 10 visits Duration These treatments will address the objective and functional deficits as defined above. The patient will be advanced safely and appropriately in order for the patient to progress towards his/her prior level of function. Additional exercises will be introduced and as well as a comprehensive home exercise program upon discharge, if needed, ?to ensure carryover of functional gains achieved in the clinic. This treatment plan has been reviewed and agreement upon by the patient.
--- NOTE | 2024-07-18 11:39 | PTOPDC ---
Assessment and note entered by Tracey Troncoso, PT Discharge Report Assessment Status Discharge ICD-10 Condition Codes (PT) M25.561,Difficulty Walking R26.2,R26.9,Weakness R53.1,Z47.89 Other ICD-10 Condition Codes ( S/P R TKR PT) Onset 06-09-24 Subjective Information is doing everything she usually does, no problems on stairs; doing better with standing up--took the elevated seat off the toliet; swelling is less; ready to be finished with PT and do the exercises at home; Reported Pain Level Pain Score 0: Self Report Additional Pain Score Comments pain range in the past week 0-1/10; Assessment PT Clinical Summary Kishan has received 10 PT sessions. Compared to the initial evaluation: pain has decreased to 0-1/10; self assessment LE functional scale rating from 91% to 30% limitation in activity level; 2 minute walking test distance of 160'' with wheeled walker to 375' without device; good walking pattern, without assistive device; able to perform alternating step pattern on stairs; increase strength and ROM of knee; decreased edema with the 3 circumferential measurements, decreased 2-3 cm each; indep with home exercises. Sitting active ROM of R knee 0-120'. The goals were achieved, except 2 of the 3 edema goals; Discharge PT services, she is to continue with her HEP and increase activity as tolerated. Plan of Care PT Services Indicated No
== END 2024-07-18 11:48 | disposition home or self-care (01) ==
LOC: ANHPT 11:00
PROVIDERS: PCP Family Medicine; Visit Provider Orthopaedic Surgery
DX: M17.11 Unilateral primary osteoarthritis, right knee (principal); Z96.651 Presence of right artificial knee joint
CPT/HCPCS: 97110; 97116; 97140; 97161; 97530

== ENCOUNTER 2024-07-18 11:43 | Outpatient (CLI) | payer OTHER, SELFPAY ==
--- NOTE | ~2024-07-18 | XR_ITS ---
XR knee RT 3V Ordering provider: Ilia Farley MD History: . Other acute postprocedural pain . Comparison: None. FINDINGS: BONES: No acute fracture or dislocation. JOINT SPACES: Total knee arthroplasty. SOFT TISSUES: Normal. IMPRESSION: No acute osseous abnormality right knee. Total knee arthroplasty. Reviewed, dictated and finalized at location A. SETTER
== END 2024-07-18 11:44 | disposition home or self-care (01) ==
PROVIDERS: PCP Family Medicine; Visit Provider Orthopaedic Surgery
DX: M25.562 Pain in left knee (principal)
CPT/HCPCS: 73562

== ENCOUNTER 2024-07-28 09:52 | Outpatient (CLI) | payer OTHER, SELFPAY ==
--- NOTE | ~2024-07-28 | US_ITS ---
EXAMINATION: US thyroid DATE: 07/28/2024 10:08 INDICATION: Nontoxic multinodular goiter. TECHNIQUE: Multiple ultrasound images of the thyroid were obtained. COMPARISON: Ultrasound 09/30/2023, 07/10/2021 FINDINGS: The right thyroid lobe measures 4.2 x 1.5 x 1.5 cm. There are changes of left hemithyroidectomy. In t he right thyroid lobe, there is a 4 mm nodule IMPRESSION: 1. Small thyroid nodule, likely not clinically significant. No follow-up is needed. 2. Left hemithyroidectomy. Reviewed, dictated and finalized at location A. RESSOR STATION OPERATOR IMPRESSION: 1. Small thyroid nodule, likely not clinically significant. No follow-up is nee ded. 2. Left hemithyroidectomy.
== END 2024-07-28 09:53 | disposition home or self-care (01) ==
LOC: MICIMG 09:53
PROVIDERS: PCP Family Medicine; Visit Provider Internal Medicine
DX: E04.1 Nontoxic single thyroid nodule (principal); Z90.89 Acquired absence of other organs
CPT/HCPCS: 76536

== ENCOUNTER 2024-09-27 12:29 | Outpatient (CLI) | payer OTHER, SELFPAY ==
[2024-09-27 14:01] LABS: Basophils Absolute Auto 0.1 K/mm3 (0.0-0.1); Basophils Percent Auto 0.7 % (0.2-1.2); Eosinophils Absolute Auto 0.1 K/mm3 (0-0.3); Eosinophils Percent Auto 1.8 % (0-4.4); Hematocrit 39.6 % (37.0-47.0); Hemoglobin 12.7 g/dL (12.0-15.0); Immature Granulocyte Absolute 0.02 K/mm3 (0.00-0.031); Immature Granulocyte Percent A 0.3 % (0-0.5); Lymphocytes Absolute Auto 2.68 K/mm3 (0.9-3.2); Lymphocytes Percent Auto 37.9 % (18.3-44.2); Mean Corpuscular HGB Conc 32.1 g/dl (32-36); Mean Corpuscular Hemoglobin 28.8 pg (26-34); Mean Corpuscular Volume 89.8 fl (80-100); Mean Platelet Volume 11.4 fl (7.4-10.4); Monocytes Absolute Auto 0.4 K/mm3 (0.1-0.6); Monocytes Percent Auto 5.1 % (2.6-8.5); Neutrophils Absolute Auto 3.8 K/mm3 (1.3-6.7); Neutrophils Percent Auto 54.2 % (45.5-73.1); Platelet Count Result 264 k/mm3 (150-375); Red Blood Count 4.41 M/mm3 (4.2-5.4); Red Cell Distribution Width 13.1 % (11.5-14.5); White Blood Count 7.1 K/mm3 (4.5-10.0)
[2024-09-27 14:16] LABS: Anion Gap 8 mmol/L (4-12); Blood Urea Nitrogen 17 mg/dL (7-17); Calcium 9.5 mg/dL (8.4-10.2); Carbon Dioxide 30 mmol/L (22-30); Chloride 103 mmol/L (98-107); Estimated Glomerular Filt Rate > 60; Glucose 85 mg/dL (65-110); Potassium 3.7 mmol/L (3.4-5.0); Sodium 141 mmol/L (137-145)
[2024-09-27 14:25] LABS: Atypical Lymphocytes Present; Platelet Estimate Adequate (Adequate); Schistocytes None Seen
[2024-09-27 14:34] LABS: Hemoglobin A1C 5.4 % (<5.7)
[2024-09-27 14:45] LABS: Urine Cotinine NEGATIVE
== END 2024-09-27 12:30 | disposition home or self-care (01) ==
PROVIDERS: PCP Family Medicine; Visit Provider Orthopaedic Surgery
DX: Z01.812 Encounter for preprocedural laboratory examination (principal); M17.12 Unilateral primary osteoarthritis, left knee
CPT/HCPCS: 80048; 80307; 82040; 83036; 85025; 86850; 86900; 86901; 87081

== ENCOUNTER 2024-10-06 01:13 | Day surgery (SDC) | payer OTHER, SELFPAY ==
--- NOTE | 2024-09-26 14:47 | PC.NURSE ---
Report to the Outpatient Waiting Room, entrance under the green pavilion located off [facility], at time _6 AM on date __10/06/24 . Planned Procedure Time: __7:30 AM .? Time changes happen often and if your time is changed the preop area will call you the afternoon before. - You and your visitor will be asked to self-screen and do not enter if you have any COVID symptoms. Please call surgeon if you need to reschedule. - A mask is optional within the hospital at this time. Patients may have clear liquids (water, carbonated beverages, clear teas, apple juice) until 3 hours prior to surgery(4:30 AM) with a maximum of 20 ounces. - No food from midnight until time of surgery and no smoking. This includes no chewing gum, candy or mints. Take only the following medications with a SIP of water on the morning of surgery: __SERTRALINE DO NOT STOP ANY OF YOUR OTHER PRESCRIPTION MEDICATIONS PRIOR TO SURGERY EXCEPT THE FOLLOWING Medications to discontinue per physician _HOLD MELOXICAM 7 DAYS PRE OP PER DR MEADOWS.LAST DOSE 09/28/24. PT STATES HOLD ALL VITAMINS AND SUPPLEMENTS 7 DAYS PRE OP PER DR MEADOWS.LAST DOSE 09/28/24. MAY TAKE TYLENOL IF NEEDED FOR PAIN Please no make-up, nail armenian, hairspray, perfume, deodorant, or body powder the day of surgery.? No jewelry (including any body piercings) or valuables the day of surgery, leave them at home.? Please take a shower or bath the night before, or the morning of, surgery with an antibacterial soap.? Wear comfortable, loose fitting clothing.? Children are encouraged to wear pajamas. - Jewelry must be removed prior to entering the operating room.? Rings and piercings that are not removed may be cut off. - The hospital will not accept responsibility for valuables.? - Please leave all valuables, including medications, at home the day of surgery. If you are going home after surgery, a licensed canal driver must drive you home.? - NO public transportation without another adult if you receive anesthesia. - We recommend that an adult stay with you for 24 hours following discharge. - We also recommend that you do not drive, make important decision, drink alcoholic beverages, or take any drugs that were not prescribed by your health care provider for at least 24 hours after your discharge time. Follow any additional instructions given to you from your surgeon. Telephone instructions given to _PATIENT and asked if any additional questions and then verbalized understanding. Patient advised to call surgeon office or pre surgery nurse liaison [phone] if any additional questions.
[2024-09-26 15:23] VITALS: BMI 37.5
--- NOTE | 2024-10-05 07:17 | PM.IMHP ---
H&P: HPI History of Present Illness Date/Time: 10/05/24 07:17 Chief Complaint: Left knee DJD Narrative: 59-year-old female presents today for a left total knee arthroplasty. She underwent right total knee arthroplasty in June of last year. She that recovery. She is very happy with her results. She has danced medial compartment osteoarthritis in the left knee. He continues to be very symptomatic for. She has been on meloxicam 15 mg chronically. This point patient feels that she is well recovered from her right total knee arthroplasty and ready proceed with the left. 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 Enlarged lymph nodes Hypothyroidism Hyperthyroidism Claustrophobia Pneumonia Vertigo Weight gain BMI greater than 40 Psoriasis Right knee DJD Left knee DJD Arthritis AMIRAH (obstructive sleep apnea) Osteoarthritis Anxiety Family history of coronary artery disease Gastroesophageal reflux disease without esophagitis Major depressive disorder with single episode, in partial remission Complex tear of medial meniscus, current injury, left knee, subsequent encounter Vitamin B12 deficiency Surgical History Surgical History History of total right knee replacement H/O partial thyroidectomy H/O arthroscopy of left knee Family History Family History Mother Hypertension Grandparent Hypertension Carcinoma of colon, Onset Age: 60 Family history of coronary artery disease Father Family history of malignant neoplasm of gastrointestinal tract, Onset Age: 60 Sibling Family history of lupus erythematosus Other Family history of gout Family history of malignant neoplasm Social History Social History Smoking packs per day: 1 Smoking cigarettes per day: 20.0 Years smoked: 30 Smoking pack-years: 30.00 Smoking status: Former smoker Tobacco type: cigarettes Second hand tobacco smoke exposure: No Smoking end date: 09/07/08 Additional smoking assessment comments: DENIES ANY FORM OF TOBACCO USE Alcohol intake: never Alcohol use details: rare use Substance use: never Substance use type: does not use Current Housing: Decline to Answer Concerned About Future Housing: Decline to Answer Difficulty Paying Gas/Electric Bills: Decline to Answer Difficulty Paying for Meds: Decline to Answer Currently Unemployed: Decline to Answer Education: Decline to Answer Difficulty w/ Childcare or Family Care: Decline to Answer Living arrangements: with family Additional living arrangements comments: Occupation/Education: occupation Additional occupation/education comments: [employer] Gender identity (if verbalized by the patient): Female Sexual Orientation (if Verbalized by the Patient): Straight or Heterosexual Spiritual care concerns: No Agree to blood products: Yes Meds Home Medications and Allergies Home Medications ?Medication ?Instructions ?Recorded ?Confirmed ?Type apremilast 30 mg tablet (Otezla) 30 mg PO BID 09/16/23 09/26/24 History solifenacin 10 mg tablet (Vesicare) 10 mg PO DAILY #90 tabs 02/24/24 09/26/24 Rx acetaminophen 325 mg tablet 650 mg (2 x 325 mg) PO Q4H #90 tabs 06/10/24 09/26/24 Rx meloxicam 15 mg tablet 15 mg PO DAILY #30 tabs 07/20/24 09/26/24 Rx sertraline 100 mg tablet 100 mg PO DAILY #90 tabs 08/02/24 09/26/24 Rx estradiol 0.05 mg/24 hr weekly 1 patch transdermal WEEKLY 08/08/24 09/26/24 History transdermal patch progesterone micronized 200 mg 200 mg PO QPM 08/08/24 09/26/24 History capsule cetirizine 10 mg capsule (Zyrtec) 10 mg PO DAILY PRN allergy symptoms 08/17/24 09/26/24 History mecobalamin (vitamin B12) 500 mcg 1,000 mcg PO DAILY 08/17/24 09/26/24 History chewable tablet semaglutide (weight loss) 0.25 0.25 mg (0.5 mL) subcut WEEKLY #6 09/27/24 Rx mg/0.5 mL subcutaneous pen mL injector (Sanchez) Allergies Allergy/AdvReac Type Severity Reaction Status Date / Time ciprofloxacin Allergy Intermediate hives Verified 09/26/24 14:55 Penicillins Allergy Intermediate Vomiting Verified 09/26/24 14:55 Sulfa (Sulfonamide Allergy Mild Rash Verified 09/26/24 14:55 Antibiotics) mold Allergy Unknown sinus Verified 09/26/24 14:55 congestion pollen Allergy Mild congestion Uncoded 09/26/24 14:55 seasonal allergies Allergy Unknown congestion Uncoded 09/26/24 14:55 Exam Narrative: 59-year-old female alert pleasant. She is 5 ft 7 and 234 lb BMI is 36.6. Range of motion left knee is from 5-130 degrees. No effusion in the knee. She has severe tenderness over the medial joint line. Hip range of motion is full without discomfort, negative Stinchfield maneuver. Normal quad strength. 2+ dorsalis pedis pulse palpable. Normal sensation in both lower extremities. No edema in lower extremities. Resp: Auscultation: clear to auscultation bilaterally Cardio: Rate: regular rate Rhythm: regular rhythm Assessment and Plan Assessment and plan (1) Right knee DJD: Qualifiers: Osteoarthritis type: primary Qualified Code(s): M17.11 - Unilateral primary osteoarthritis, right knee Code(s): M17.11 - Unilateral primary osteoarthritis, right knee Status: Acute Assessment and Plan: 59-year-old female who has severe medial compartment osteoarthritis right knee with continued symptoms. She has recovered well from her left total knee and is ready to proceed with the right. Surgical procedures well as the risks and complications were reviewed. Patient will stop her meloxicam 7 days prior to surgery as well as any other aspirin or ibuprofen products. Patient's nasal swab was negative. Hemoglobin 12.7 platelets are 264. Chem panel is all within normal limits creatinine 0.66
--- NOTE | 2024-10-05 12:50 | P.PNAN_ITS ---
Anes - Initial Pre Proc Eval Procedure: Operation Date: 10/06/24 07:30 Proposed Procedures p Left Total Knee Arthroplasty - Ilia Farley MD Date/Time: 10/05/24 12:50 Surgeon: Ilia Farley MD Pre Op Diagnosis: left knee OA Patient Data Age: 59 Gender: F Height: 1.7 m Weight: 108.9 kg Allergies Allergy/AdvReac Type Severity Reaction Status Date / Time ciprofloxacin Allergy Intermediate hives Verified 10/05/24 09:51 Penicillins Allergy Intermediate Vomiting Verified 10/05/24 09:51 Sulfa (Sulfonamide Allergy Mild Rash Verified 10/05/24 09:51 Antibiotics) mold Allergy Unknown sinus Verified 10/05/24 09:51 congestion pollen Allergy Mild congestion Uncoded 10/05/24 09:51 seasonal allergies Allergy Unknown congestion Uncoded 10/05/24 09:51 Home Medications ?Medication ?Instructions ?Recorded ?Confirmed ?Type apremilast 30 mg tablet (Otezla) 30 mg PO BID 09/16/23 10/05/24 History acetaminophen 325 mg tablet 650 mg (2 x 325 mg) PO Q4H #90 tabs 06/10/24 10/05/24 Rx meloxicam 15 mg tablet 15 mg PO DAILY #30 tabs 07/20/24 10/05/24 Rx estradiol 0.05 mg/24 hr weekly 1 patch transdermal WEEKLY 08/08/24 10/05/24 History transdermal patch progesterone micronized 200 mg 200 mg PO QPM 08/08/24 10/05/24 History capsule cetirizine 10 mg capsule (Zyrtec) 10 mg PO DAILY PRN allergy symptoms 08/17/24 10/05/24 History mecobalamin (vitamin B12) 500 mcg 1,000 mcg PO DAILY 08/17/24 10/05/24 History chewable tablet semaglutide (weight loss) 0.25 0.25 mg (0.5 mL) subcut WEEKLY #6 09/27/24 10/05/24 Rx mg/0.5 mL subcutaneous pen mL injector (Wegovy) sertraline 100 mg tablet 100 mg PO DAILY #90 tabs 10/05/24 10/05/24 Rx solifenacin 10 mg tablet (Vesicare) 10 mg PO DAILY #90 tabs 10/05/24 10/05/24 Rx Patient hx anesthesia problems: none Family hx anesthesia problems: none Results Review: All pre-operative results and documents have been reviewed as part of the pre- operative evaluation. 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 Enlarged lymph nodes Hypothyroidism Hyperthyroidism Claustrophobia Pneumonia Vertigo Weight gain BMI greater than 40 Psoriasis Right knee DJD Left knee DJD Arthritis AMIRAH (obstructive sleep apnea) Osteoarthritis Anxiety Family history of coronary artery disease Gastroesophageal reflux disease without esophagitis Major depressive disorder with single episode, in partial remission Complex tear of medial meniscus, current injury, left knee, subsequent encounter Vitamin B12 deficiency Surgical History Surgical History History of total right knee replacement H/O partial thyroidectomy H/O arthroscopy of left knee Family History Family History Mother Hypertension Grandparent Hypertension Carcinoma of colon, Onset Age: 60 Family history of coronary artery disease Father Family history of malignant neoplasm of gastrointestinal tract, Onset Age: 60 Sibling Family history of lupus erythematosus Other Family history of gout Family history of malignant neoplasm Social History Social History Smoking packs per day: 1 Smoking cigarettes per day: 20.0 Years smoked: 30 Smoking pack-years: 30.00 Smoking status: Former smoker Tobacco type: cigarettes Second hand tobacco smoke exposure: No Smoking end date: 09/07/08 Additional smoking assessment comments: DENIES ANY FORM OF TOBACCO USE Alcohol intake: never Alcohol use details: rare use Substance use: never Substance use type: does not use Current Housing: Decline to Answer Concerned About Future Housing: Decline to Answer Difficulty Paying Gas/Electric Bills: Decline to Answer Difficulty Paying for Meds: Decline to Answer Currently Unemployed: Decline to Answer Education: Decline to Answer Difficulty w/ Childcare or Family Care: Decline to Answer Living arrangements: with family Additional living arrangements comments: Occupation/Education: occupation Additional occupation/education comments: [employer] Gender identity (if verbalized by the patient): Female Sexual Orientation (if Verbalized by the Patient): Straight or Heterosexual Spiritual care concerns: No Agree to blood products: Yes Anes - Eval Final PreProcedure Day of Procedure 10/05/24 12:50 Patient weight: obese Heart: regular rate and rhythm Lungs: clear to auscultation Airway: Mallampati scale class II Neurological: alert and oriented Last oral intake: >/= 8 hours ASA classification: III Emergent: no Anesthetic plan: proceed Anesthesia type and monitoring: general ETT and standard monitoring Results Review: All pre-operative results and documents have been reviewed as part of the pre- operative evaluation. Informed Consent: The patient's anesthetic plan and its attendant risks and benefits were di scussed with the patient/family/POA. Questions were solicited and answers provided to the satisfaction of the patient/family/POA.
[2024-10-06] VITALS (13 sets, daily range): BP systolic 105–132; BP diastolic 52–78; PULSE 78–96; RESP 13–20; TEMP 36.2–36.9; O2SAT 93–100
--- NOTE | ~2024-10-06 | XR_ITS ---
EXAMINATION: [id number] DATE: 10/06/2024 11:02 INDICATION: Total left knee arthroplasty. Postop. TECHNIQUE: 2 views of left knee were obtained. COMPARISON: Left knee radiographs 08/17/2024 FINDINGS: There is a total left knee arthroplasty without patellar resurfacing in near-anatomic align ment. No fracture. There are osteophytes of the patella. There is gas in the knee joint and soft tiss ues, consistent with recent surgery. IMPRESSION: 1. Total left knee arthroplasty in near-anatomic alignment. Reviewed, dictated and finalized at location A. H MANAGER
--- OUTSIDE RECORDS SUMMARY | 2024-10-06 01:17 | XMS_ITS ---
Author Organization [facility] Address [address] [place] [address] Care Team Providers Care Business Integration Analyst Name Role Phone Precious Mcmahan Primary Care Provider Dawson Freedman Unavailable [phone] REASON FOR VISIT [facility], on tirzepatide, no side effects, appetite suppression pretty good , Desired weight loss: 30 lbs for surgery, -1.8 lbs since last visit, -13.4 lbs total, No history MTC or MEN2 or pancreatitis, Concerned about future DM and OA Medications Medication SIG (Take, Route, Frequency, Duration) Notes Start Date End Date Status Xyzal Allergy 24HR 5 MG 1 tablet PO daily for 30 09/21/2018 Active ZyrTEC Allergy 10 MG 1 tab(s) orally once a day for 90 days Active B-12 1000 MCG 1 tab(s) orally once a day Active Azelastine HCl 137 MCG/SPRAY 2 spray(s) intranasally 2 times a day for 90 days Active Flonase Allergy Relief 50 MCG/ACT 2 spray(s) intranasally once a day for 90 days Active Sertraline HCl 100 MG 1 tab(s) orally once a day Active Diclofenac Sodium 75 MG 1 tab(s) orally 2 times a day Active Vitamin D3 50 MCG (2000 UT) 1 cap(s) orally once a day Active Flonase Allergy Relief 50 MCG/ACT 2 spray(s) intranasally once a day Not-Taking Otezla 30 MG 1 tab(s) orally 2 times a day Active Clobex [place] 0.05 % (Prior Auth: Rx Ref#:[id number]) for 90 Not-Taking Cosentyx Sensoready Pen 150 MG/ML (PRIOR AUTH: RX REF#:[id number]) for 56 *Please review and pick correct strength-formulati on from Medispan options. If intended option is not shown, discontinue and re-order from Quick Search* Not-Taking Meloxicam 7.5 MG (Prior Auth: Rx Ref#:[id number]) for 90 Not-Taking ZyrTEC Allergy 10 MG 1 tab(s) orally once a day Not-Taking Myrbetriq 25 MG 1 tab(s) orally once a day Not-Taking Vital Signs Height 67 in 04/04/2024 Weight 234.8 lbs 04/04/2024 BMI 36.77 kg/m2 04/04/2024 Encounters Encounter Location Date Provider Diagnosis [facility] [place] ([address]) [address] [address] 04/04/2024 Dawson Bolton Chronic fatigue, unspecified R53.82 ; Abnormal weight gain R63.5 ; Other fatigue R53.83 and Other malaise R53.81 Assessments Encounter Date Diagnosis (ICD Code) Assessment Notes Treatment Notes Treatment Clinical Notes Section Notes 04/04/2024 Chronic fatigue, unspecified (ICD-10 - R53.82) 04/04/2024 Abnormal weight gain (ICD-10 - R63.5) 04/04/2024 Other fatigue (ICD-10 - R53.83) 04/04/2024 Other malaise (ICD-10 - R53.81) Plan Of Treatment Next Appt Details Follow Up: 1 Week, Reason: G LP-1 Agonist Administration Procedure Notes * Category Sub-Category Detail Notes [facility] Weight Management tirzepatide Indication: weig ht loss Concentration: 10 mg/mL Volume Administered: 0.7 mL Dose Administered: 7 mg Route: SQ Location: [facility] Frequency: weekly Lot Number/Expiration: Medication Source: [facility] Adverse Reaction: None Progress Notes * Kishan GOULD KDOB:1965 (59 yo F)Acc No.[id number]:04/04/2024 Weight Loss Patient:?Kishan GOULD Provider:?Dawson Bolton MD :1965???Age:58 Y???Sex:Female D ate:04/04/2024 Address:[facility] [address], [facility] Pcp:Precious Mcmahan Subjective: * Chief Complaints: * ???1. [facility] oss, on tirzepatide, no side effects, appetite suppression pretty good . 2. Desired weight loss: 30 lbs for surgery, -1.8 lbs since last visit, -13.4 lbs total. 3. No history MTC or MEN2 or pancreatitis. 4. Concerned about future DM and OA. * Medical History:? * Medications:?Taking Diclofen ac Sodium 75 MG Tablet Delayed Release 1 tab(s) orally 2 times a day , Taking Sertraline HCl 100 MG Tablet 1 tab(s) orally once a day , Taking Otezla 30 MG Tablet 1 tab(s) orally 2 times a day , Taking Vitamin D3 50 MCG (2000 UT) Capsule 1 cap(s) orally once a day , Taking B-12 1000 MCG Tablet 1 tab(s) orally once a day , Taking ZyrTEC Allergy 10 MG Tablet 1 tab(s) orally once a day , Taking Flonase Allergy Relief 50 MCG/ACT Suspension 2 spray(s) intranasally once a day , Taking Azelastine HCl 137 MCG/SPRAY Solution 2 spray(s) intranasally 2 times a day , Taking Xyzal Allergy 24HR 5 MG Tablet 1 tablet PO daily , Not-Taking/PRN Clobex [place]ott 0.05 % Liquid (Prior Auth: Rx Ref#:[id number]) , Not-Taking/PRN Meloxicam 7.5 MG Tablet (Prior Auth: Rx Ref#:[id number]) , Not-Taking/PRN Cosentyx Sensoready Pen 150 MG/ML SOLUTION (PRIOR AUTH: RX REF#:[id number]) , Notes to Pharmacist: *Please review and pick correct strength-formulation from Medispan options. If intended option is not shown, discontinue and re-order from Quick Search*, Not-Taking/PRN Myrbetriq 25 MG Tablet Extended Release 24 Hour 1 tab(s) orally once a day , Not-Taking/PRN ZyrTEC Allergy 10 MG Tablet 1 tab(s) orally once a day , Not-Taking/PRN Flonase Allergy Relief 50 MCG/ACT Suspension 2 spray(s) intranasally once a day Objective: * Vitals:?Ht: 67 in, Wt: 234.8 lbs, BMI:36.77Index. Assessment: * Assessment: 1.?Abnormal weight gain - R6 3.5 (Primary)???2.?Chronic fatigue, unspecified - R53.82???3.?Other fatigue - R53.83???4.?Other malaise - R53.81??? Plan: * Treatment: * Procedures:?[facility]: Weight Management:?tirzepatide ?Indication?weight loss ?Concentration?10 mg/mL ?Volume Administered?0.7 mL ?Dose Administered?7 mg ?Route?SQ ?Location?[facility] ?Frequency?weekly ?Lot Number/Expiration?Medication Source?[facility] ?Adverse Reaction?None? * Follow Up:?1 Week (Reason: G LP-1 Agonist Administration) * Billing Information: * Visit Code:? * Procedure Codes:? 40183 [facility] - Weekly (tirzepatide) Tier 2. * Electronic signature of Dipti Bolton MD, FAAAAI on 10/06/2024 at 01:17 AM MARBLE INSTALLER Sign off status: Pending * Provider:?Dawson Bolton MD Date:?04/04 Generated for Reji brown/Shabbir/eTsantiagosmlorri on:?10/06/2024 01:17 AM MARBLE INSTALLER
--- OUTSIDE RECORDS SUMMARY | 2024-10-06 01:17 | XMS_ITS | Patient Health Record ---
Author Organization [facility] Address [address] [place] [address] Care Team Providers Care Survey Director Name Role Phone Precious Mcmahan Primary Care Provider UnavailDawson Clements Unavailable [phone] [employer], Provider Unavailable Unavailab le Reason For Referral No Information Medications Medication SIG (Take, Route, Frequency, Duration) Notes Start Date End Date Status Myrbetriq 25 MG 1 tab(s) orally once a day Not-Taking Otezla 30 MG 1 tab(s) orally 2 times a day Active ZyrTEC Allergy 10 MG 1 tab(s) orally once a day Not-Taking Vitamin D3 50 MCG (2000 UT) 1 cap(s) orally once a day Active Flonase Allergy Relief 50 MCG/ACT 2 spray(s) intranasally once a day Not-Taking B-12 1000 MCG 1 tab(s) orally once a day Active ZyrTEC Allergy 10 MG 1 tab(s) orally once a day for 90 days Active Flonase Allergy Relief 50 MCG/ACT 2 spray(s) intranasally once a day for 90 days Active Azelastine HCl 137 MCG/SPRAY 2 spray(s) intranasally 2 times a day for 90 days Active Xyzal Allergy 24HR 5 MG 1 tablet PO daily for 30 09/21/2018 Active Clobex [place] 0.05 % (Prior Auth: Rx Ref#:[id number]) for 90 Not-Taking Meloxicam 7.5 MG (Prior Auth: Rx Ref#:[id number]) for 90 Not-Taking Diclofenac Sodium 75 MG 1 tab(s) orally 2 times a day Active Cosentyx Sensoready Pen 150 MG/ML (PRIOR AUTH: RX REF#:[id number]) for 56 *Please review and pick correct strength-formulati on from Learn with Homer options. If intended option is not shown, discontinue and re-order from Quick Search* Not-Taking Sertraline HCl 100 MG 1 tab(s) orally once a day Active Immunizations Vaccine Route Administration Date Status Comme nts NOC Tdap Unknown 07/18/2011 Administered NOC Fluzone Quadrivalent Unknown 09/20/2018 Refused Influenza Unknown 07/19/2015 Administered H1N1 Influenza Unknown 06/07/2015 Administered Portal I nformation Fluzone Quadrivalent Unknown 07/14/2017 Administered Social History Tobacco Use: Social History Observation Description Date Details (start date - stop date) Former Smoker NA - NA Smoking Smart Form: Question Answer Notes Are you a: former smoker How long it has been since you last smoked? 1-5 years Problems Problem Type SNOMED Code ICD Code Onset Dates Problem Status W/U Status Risk Notes Problem Chronic allergic conjunctivitis (15512585) Other chronic allergic conjunctivitis (H10.45) Active confirmed Problem Allergic rhinitis caused by pollen (disorder) (53704962) Allergic rhinitis due to pollen (J30.1) Active confirmed Problem Allergic rhinitis (30220724) Other allergic rhinitis (J30.89) Active confirmed Problem Chronic fatigue syndrome (disorder) (90927228) Chronic fatigue, unspecified (R53.82) Active confirmed Problem Allergic rhinitis caused by animal hair and dander (206769479019728) Allergic rhinitis due to animal (cat) (dog) hair and dander (J30.81) Active confirmed Problem Nasal congestion (45946595) Nasal congestion (R09.81) Active confirmed Problem Shortness of breath (825680063) Shortness of breath (R06.02) Active confirmed Vital Signs Respiratory Rate 16 /min 01/27/2024 Blood pressure diastolic 69 mm Hg 01/27/2024 Oximetry 96 % 01/27/2024 Height 67 in 04/18/2024 Blood pressure systolic 102 mm Hg 01/27/2024 Weight 234.0 lbs 04/18/2024 BMI 36.65 kg/m2 04/18/2024 Encounters Encounter Location Date Provider Diagnosis [facility] [place] ([address]) [address] [place] [address] 02/04/2024 Dawsonmichelle Bolton Chronic fatigue, unspecified R53.82 ; Abnormal weight gain R63.5 ; Other fatigue R53.83 and Other malaise R53.81 [facility] [place] ([address]) [address] [place] [address] 02/15/2024 Dawson Win Chronic fatigue, unspecified R53.82 ; Abnormal weight gain R63.5 ; Other fatigue R53.83 and Other malaise R53.[address] [address] 02/20/2024 Provider DILMA-Bipin [facility] [place] ([address]) [address] [place] [address] 02/22/2024 Dawson Hoang Chronic fatigue, unspecified R53.82 ; Abnormal weight gain R63.5 ; Other fatigue R53.83 and Other malaise R53.81 [facility] ([address]) [address] [place] [address] 02/29/2024 Dawson Hoang Chronic fatigue, unspecified R53.82 ; Abnormal weight gain R63.5 ; Other fatigue R53.83 and Other malaise R53.81 [facility] ([address]) [address] [place] [address] 03/21/2024 Dawson Win Chronic fatigue, unspecified R53.82 ; Abnormal weight gain R63.5 ; Other fatigue R53.83 and Other malaise R53.81 [facility] [place] ([address]) [address] [place] [address] 03/28/2024 Dawson Win Chronic fatigue, unspecified R53.82 ; Abnormal weight gain R63.5 ; Other fatigue R53.83 and Other malaise R53.81 [facility] ([address]) [address] [place] [address] 04/04/2024 Dawson Win Chronic fatigue, unspecified R53.82 ; Abnormal weight gain R63.5 ; Other fatigue R53.83 and Other malaise R53.81 [facility] [place] ([address]) [address] [place] [address] 04/11/2024 Dawson Bolton Chronic fatigue, unspecified R53.82 ; Abnormal weight gain R63.5 ; Other fatigue R53.83 and Other malaise R53.81 [facility] ([address]) [address] [place] [address] 04/18/2024 Dawson Bolton Chronic fatigue, unspecified R53.82 ; Abnormal weight gain R63.5 ; Other fatigue R53.83 and Other malaise R53.81 [facility] ([address]) [address] [place] [address] 01/27/2024 Dawson Bolton Chronic fatigue, unspecified R53.82 ; Abnormal weight gain R63.5 ; Other fatigue R53.83 and Other malaise R53.81 [facility] ([address]) [address] [place] [address] 01/28/2024 Dawson Bolton Chronic fatigue, unspecified R53.82 ; Abnormal weight gain R63.5 ; Other fatigue R53.83 and Other malaise R53.81 [facility] ([address]) [address] [place] [address] 03/07/2024 Dawson Bolton Chronic fatigue, unspecified R53.82 ; Abnormal weight gain R63.5 ; Other fatigue R53.83 and Other malaise R53.81 [facility] ([address]) [address] [place] [address] 03/14/2024 Dawson Bolton Chronic fatigue, unspecified R53.82 ; Abnormal weight gain R63.5 ; Other fatigue R53.83 and Other malaise R53.81 Assessments Encounter Date Diagnosis (ICD Code) Assessment Notes Treatment Notes Treatment Clinical Notes Section Notes 02/15/2024 Chronic fatigue, unspecified (ICD-10 - R53.82) 02/15/2024 Abnormal weight gain (ICD-10 - R63.5) 02/22/2024 Chronic fatigue, unspecified (ICD-10 - R53.82) 02/22/2024 Abnormal weight gain (ICD-10 - R63.5) 03/07/2024 Chronic fatigue, unspecified (ICD-10 - R53.82) 03/07/2024 Abnormal weight gain (ICD-10 - R63.5) 04/04/2024 Chronic fatigue, unspecified (ICD-10 - R53.82) 04/04/2024 Abnormal weight gain (ICD-10 - R63.5) 04/18/2024 Chronic fatigue, unspecified (ICD-10 - R53.82) 04/18/2024 Abnormal weight gain (ICD-10 - R63.5) 04/11/2024 Chronic fatigue, unspecified (ICD-10 - R53.82) 04/11/2024 Abnormal weight gain (ICD-10 - R63.5) 02/29/2024 Chronic fatigue, unspecified (ICD-10 - R53.82) 02/29/2024 Abnormal weight gain (ICD-10 - R63.5) 02/04/2024 Chronic fatigue, unspecified (ICD-10 - R53.82) 02/04/2024 Abnormal weight gain (ICD-10 - R63.5) 01/28/2024 Chronic fatigue, unspecified (ICD-10 - R53.82) 01/28/2024 Abnormal weight gain (ICD-10 - R63.5) 01/27/2024 Chronic fatigue, unspecified (ICD-10 - R53.82) 01/27/2024 Abnormal weight gain (ICD-10 - R63.5) Needs thyroid and hormone optimization for adequate, healthy weight loss. Dietary measures including protein needs and hydration discussed. 03/21/2024 Chronic fatigue, unspecified (ICD-10 - R53.82) 03/21/2024 Abnormal weight gain (ICD-10 - R63.5) 03/14/2024 Chronic fatigue, unspecified (ICD-10 - R53.82) 03/14/2024 Abnormal weight gain (ICD-10 - R63.5) 03/28/2024 Chronic fatigue, unspecified (ICD-10 - R53.82) 03/28/2024 Abnormal weight gain (ICD-10 - R63.5) 03/28/2024 Other fatigue (ICD-10 - R53.83) 03/14/2024 Other fatigue (ICD-10 - R53.83) 03/21/2024 Other fatigue (ICD-10 - R53.83) 01/27/2024 Other fatigue (ICD-10 - R53.83) 01/28/2024 Other fatigue (ICD-10 - R53.83) 02/04/2024 Other fatigue (ICD-10 - R53.83) 02/29/2024 Other fatigue (ICD-10 - R53.83) 04/11/2024 Other fatigue (ICD-10 - R53.83) 04/18/2024 Other fatigue (ICD-10 - R53.83) 04/04/2024 Other fatigue (ICD-10 - R53.83) 03/07/2024 Other fatigue (ICD-10 - R53.83) 02/22/2024 Other fatigue (ICD-10 - R53.83) 02/15/2024 Other fatigue (ICD-10 - R53.83) 02/22/2024 Other malaise (ICD-10 - R53.81) 03/07/2024 Other malaise (ICD-10 - R53.81) 04/04/2024 Other malaise (ICD-10 - R53.81) 04/18/2024 Other malaise (ICD-10 - R53.81) 04/11/2024 Other malaise (ICD-10 - R53.81) 02/29/2024 Other malaise (ICD-10 - R53.81) 02/04/2024 Other malaise (ICD-10 - R53.81) 01/28/2024 Other malaise (ICD-10 - R53.81) 01/27/2024 Other malaise (ICD-10 - R53.81) 03/21/2024 Other malaise (ICD-10 - R53.81) 03/14/2024 Other malaise (ICD-10 - R53.81) 03/28/2024 Other malaise (ICD-10 - R53.81) 02/15/2024 Other malaise (ICD-10 - R53.81) Plan Of Treatment No Information Insurance Providers Payer Name Payer Address Payer Phone Subscriber Number Group Number Insured Name Patient Relationship to Insured Coverage Start Date Coverage End Date [employer] [address] [place] [address] [phone] [id number] David Rodriguez Spouse - patient is the spouse of the insured [facility] [place] [address] [place] [address] [id number] David Rodriguez Spouse - patient is the spouse of the insured Medical (General) History Medical History History ICD Code Rheumatoid Arthritis Psoriasis Swelling of Extremities Allergic rhinitis due to pollen Allergic rhinitis due to animal (cat) (d og) hair and dander Other allergic rhinitis Other chronic allergic conjunctivitis Nasal congestion Surgical History Surgery Date(Month/Year) 1989 1993 vulvar/AIMEE four surgeries from [id number] knee surgery 05/01/2016 Hospitalization History Reason Date(Month/Year) Only for listed surgeries
--- OUTSIDE RECORDS SUMMARY | 2024-10-06 01:17 | XMS_ITS ---
Author Organization [facility] Address [address] [facility] [address] [place] [address] Care Team Providers Care Stitch Bonder Machine Operator Helper Name Role Phone Precious Mcmahan MD Primary Care Provider TRACEE Kaye Unavailable [phone] Encounters Encounter Location Date Provider Diagnosis [facility] [address] [facility] [address] [place] [address] 08/29/2024 TRACEE CALDERÓN Plan Of Treatment Next Appt Details Provider Name:TRACEE BARTON, 10/31/2024 09:45:00 AM, [address] [place] [address], [phone], Progress Notes * Kishan GOULDDOB:1965 ( 59 yo F)Acc No.[id number]:08/29/2024 Patient:?Kishan GOULD :1965???Age:59 Y???Sex:Female Address:[address], [place] [address] * true * Date:? Generated for Printi ng/Famacyg/eTransmitting on:?10/06/2024 01:16 AM REFLEXOLOGIST
--- OUTSIDE RECORDS SUMMARY | 2024-10-06 01:17 | XMS_ITS | Clinical Summary ---
Author Organization [facility] Address [address] [place] [address] Care Team Providers Care Electrical Test Engineer Name Role Phone Precious Mcmahan MD Primary Care Provider [phone] Unknown, Notinfile Unavailable Unavailable Allergies Active Allergy Reactions Criticality Noted Date Comments Cat Dander Other (See comments) Low 06/09/2023 Ciprofloxacin Urticaria Medium 02/05/2024 Dog Dander Other (See comments) Low 06/09/2023 Penicillins Nausea And Vomiting 10/09/2023 Sulfamethoxazole-Trimethoprim Urticaria Medium 2023 [place] Pollen Other (See comments) Low 06/09/2023 Medications fluticasone (FLONASE) 50 mcg/actuation nasal sprayIndications:Al lergic Rhinitis Administer 1 spray into each nostril daily as needed for rhinitis 08/17/20 17 Active cholecalciferol (VITAMIN D-3) 1,000 unit capsuleIndications: Vitamin D Deficiency Take 1 capsule (1,000 Units total) by mouth daily before breakfast Active ferrous sulfate 325 mg (65 mg of elemental iron) tabletIndications:I silvano Deficiency Anemia Take 1 tablet (325 mg total) by mouth daily with breakfast Active diphenhydrAMINE (BENADRYL) 50 mg capsuleIndications: allergic reaction Take 1 capsule (50 mg total) by mouth every 6 (six) hours as needed for itching Active cetirizine (ZyrTEC) 10 mg tablet 12/11/19 22 Active Duobrii 0.01-0.045 % lotion Active melatonin tablet Take by oral route. Active nabumetone (RELAFEN) 750 mg tablet Take 1 tablet (750 mg total) by mouth 2 (two) times a day Active clobetasoL (TEMOVATE) 0.05 % external solution 07/07/[address] (VOLTAREN) 75 mg EC tablet 10/06/19 24 Active oxyBUTYnin XL (DITROPAN-XL) 5 mg 24 hr tablet 10/19/19 24 Active sertraline (ZOLOFT) 100 mg tablet 10/19/19 24 Active omeprazole (PriLOSEC) 20 mg capsule 02/03/20 24 Active imiquimod (ALDARA) 5 % creamIndications: N III (vulvar intraepithelial neoplasia III) Apply topically 3 (three) times a week Wash hands prior to and following application. 12 each 5 02/24/20 24 Active estradioL (CLIMARA) 0.05 mg/24 hrIndications:Vasom otor Symptoms associated with Menopause Place 1 patch on the skin once a week 1 patch 04/04/20 24 025 Active progesterone (PROMETRIUM) 200 mg capsuleIndications: Endometrial Hyperplasia Prevention Take 1 capsule (200 mg total) by mouth daily Take for the first 12 days of each month 30 capsule 04/04/20 24 025 Active Zoryve 0.3 % cream A ctive solifenacin (VESIcare) 10 mg tablet 02/24/20 24 Active Otezla 30 mg tablet 04/15/20 24 Active phentermine (ADIPEX-P) 37.5 mg tablet Take 1 tablet (37.5 mg total) by mouth daily before breakfast Active Vtama 1 % cream 04/07/20 24 Active meloxicam (MOBIC) 15 mg tablet 08/27/20 24 Active Active Problems Problem Noted Date Diagnosed Date Vasomotor symptoms due to menopause 05/16/2024 Assessment & Plan (05/16/2024 11:56 AM CDT): Tolerating combined hormonal replacement therapy with estradiol patch and prometrium. Symptoms have improved. Follow up in 3 months. Consider vaginal estrogen. Laryngopharyngeal reflux (LPR) 02/07/2024 Osteoarthritis of both knees 09/29/2023 Acute urinary tract infection 06/09/2023 Cough 06/09/2023 Depressive disorder 06/09/2023 Dyspnea 06/09/2023 Edema 06/09/2023 Fatigue 06/09/2023 Headache 06/09/2023 Multiple joint pain 06/09/2023 Muscle pain 06/09/2023 Nicotine dependence 06/09/2023 Pain in throat 06/09/2023 Peripheral venous insufficiency 06/09/2023 Polyuria 06/09/2023 Posterior rhinorrhea 06/09/2023 Rheumatoid arthritis 06/09/2023 Seasonal allergic rhinitis 06/09/2023 Upper respiratory infection 06/09/2023 Urinary incontinence 06/09/2023 Varicose veins of lower extremity 06/09/2023 Iron deficiency 12/10/2021 Female hirsutism 10/07/2021 Loss of hair 10/07/2021 Thyroid nodule 10/07/2021 Vitamin D deficiency 10/07/2021 Weight gain 10/07/2021 Obesity 09/03/2017 Anxiety 09/03/2017 Hypertensive disorder 09/03/2017 Pulmonary emphysema 09/03/2017 Sleep apnea 09/03/2017 AIMEE III (vulvar intraepithelial neoplasia III) 1 11/04/2016 Overview (10/21/2018): Added automatically from request for surgery [id number] Assessment & Plan (05/16/2024 11:54 AM CDT): Lesions resolved with Aldara. Return to clinic in 3 months. Signs and symptoms of recurrence reviewed. Laser ablation and or resection will be reserved for severe extensive lesions. 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 Encounters Date Type Department Care Team Description 09/05/2024 10:45 AM MINE SHIFTER Office Visit [facility] Obstetrics and Gynecology [address] Medicine [address] [place] [address] [place] [address] Dominga Potts MD AIMEE III (vulvar intraepithelial neoplasia III) from Last 3 Months Immunizations Name Administration Dates Next Due Influenza, Quadrivalent, Hig h Dose, Preservative Free, Intrr 06/04/2014 Influenza, Quadrivalent, Spl it, Preservative Free, Intramuscular 07/05/2021 Influenza, Trivalent, High D ose, Split, Preservative Free, Intramuscular 06/04/2014 Influenza, Trivalent, IM (MDV) 07/14/2017,2012 Influenza, Trivalent, Preservative Free, Intramu scular 2017 Influenza, Unspecified 06/03/2017,06/03/2017 Tdap 05/04/2021,07/23/2011 ZOSTER Recombinant 04/12/2022,01/02/2022 Surgical History Surgery Date Site/Laterality Comments MENISCUS SURGERY 09/07/2015 - 09/06/2016 OTHER SURGICAL HISTORY 09/07/2012 - 10/07/2012 right vulval excision DILATION AND CURETTAGE OF UTERUS 06/24/2013 SECTION 1994; 1989 ENDOMETRIAL BIOPSY 01/31/2016 LASER ABLATION 03/17/2016 of vulva VULVA SURGERY 09/07/2018 - 09/06/2019 Medical History Medical History Date Comments Hx Other Medical c section; Comm ents: NETTE 07/02/2015 - Sleep apnea Vulvar intraepithelial neoplasia (AIMEE) Vitamin D deficiency Mitral valve prolapse Psoriasis PONV (postoperative nausea and vomiting) GERD (gastroesophageal reflux disease) Anxiety Psoriatic arthropathy (HCC) Hypertension Covid-19 08/31/2020 Family History Medical History Relation Name Comments Rectal cancer Father Hypertension Mother Heart attack Paternal Grandfather early 6 0s Lupus Sister Lupus erythemat osus; Raynaud syndrome Sister Relation Name Status Comments Father (Age 67) Mother Alive Paternal Grandfather Sister Alive Social History Tobacco Use Types Packs/Day Years Used Date Smoking Tobacco: Former Cigarettes 1 27 1 987 - 2013 Smokeless Tobacco: Never Tobacco Cessation:Counseling Given: Not Answered Alcohol Use Standard Drinks/Week Comments Yes 0 (1 standard drink = 0.6 oz pur e alcohol) rare AUDIT-C Answer Date Recorded Q1: How often do you have a drink containing alcohol? Never 07/10/2022 Q2: How many drinks containi ng alcohol do you have on a typical day when you are drinking? Patient does not drink Q3: How often do you have si x or more drinks on one occasion? Never 07/10/2022 Comments No Sex and Gender Information Value Date Recorded Sex Assigned at Not on file Legal Sex Female 3:48 AM MINE SHIFTER Gender Identity Not on file Sexual Orientation Not on file Obstetrics History Para Term AB IAB SAB Ectopic Multiple Livin g Live Births 4 3 1 1 3 Date Outcome GA Total Labor Labor//3rd Weight Sex Type Anes PTL Matilda A1 A5 Name Clin Para Para Para SAB Last Filed Vital Signs Vital Sign Reading Time Taken Comments Blood Pressure 119/78 09/05/2024 10:56 AM MINE SHIFTER Pulse 78 09/05/2024 10:56 AM MINE SHIFTER Temperature 36.8 ??C (98.2 ??F) 09/05/2024 1 0:56 AM MINE SHIFTER Respiratory Rate 16 09/05/2024 10:5 6 AM MINE SHIFTER Oxygen Saturation 99% 05/16/2024 11: 17 AM CDT Inhaled Oxygen Concentration - - Weight 108.1 kg (238 lb 4.8 oz) 024 10:56 AM MINE SHIFTER Height 170.2 cm (5' 7.01 ) 09/05/2024 1 0:56 AM MINE SHIFTER Body Mass Index 37.31 09/05/2024 10:56 AM MINE SHIFTER Plan of Treatment Health Maintenance Due Date Last Done Comments Breast Cancer Screening-Mammogram 1965 Colon Cancer Screening-Colonoscopy 1965 Depression Screening 1966 Pneumococcal vaccine <65 (1 of 2 - PCV) 1972 Hepatitis B Screening 1984 Regular Well Visit/Exam 18-64 1984 Lung Cancer Screening 2016 Covid-19 Vaccine (2023-2 5 season) 2024 11/11/2021, 10/18/2020, 09/27/2020 Influenza Vaccine (#1) 2024 , 07/14/2017, 06/03/2017, Additional history exists Cervical Cancer Screening 08/05/20242022, 08/05/2023, 06/09/2023, Additional history exists DTaP/Tdap/Td Vaccine (3 - Td or Tdap) 05/04/2031 05/04/2021, 07/23/2011 Hepatitis C Screening Completed 07/02/2015 Zoster Vaccine Completed 04/12/2022, 01/02/2022 Procedures Procedure Name Priority Date/Time Associated Diagnosis Comments HIGH RISK HPV DNA DETECTION WITH GENOTYPING Routine 08/05/2023 9:30 AM MINE SHIFTER AIMEE III (vulvar intraepithelial neoplasia III) SERUM HEPATITIS C AB Routine 07/02/2015 4:53 PM CDT from Last 3 Months or Most Recently Relevant to Health Maintenance Results * High Risk HPV DNA Detection with Genotyping (Molecular component) (08/05/2023 9:30 AM MINE SHIFTER) HPV HR 16 Not Detected Not Detected [facility] HPV HR 18 Not Detected Not Detected [facility] HPV HR Non 16/18 Not Detected Not Detected [facility] Comment: Interpretive Data Nucleic acid amplification for detection of high-risk Human Papilloma virus (HPV) is performed by the Wilmer Juliet 6800 HPV test. ??This assay specifically detects HPV-16 and HPV-18 genotypes. ??The following HPV genotypes are detected as high-risk HPV: ?? HPV-31, 33, 35, ,39, 45, 51, 52, 56, 58, 59, 66, and 68. ??This assay has been approved by the [place] Food and Drug Administration for detection of HPV in cervical specimens collected by a physician using an endocervical brush/spatula or cervical broom and placed in the ThinPrep Pap Test PreservCyt collection containers. ??The performance characteristics of this test have been verified by the [facility] Molecular Infectious Disease laboratory. Correlate with separately reported cytology results, as applicable. Interpretive data last revised 23 Endocervical 08/05/2023 9:30 AM MINE SHIFTER 08/06/2023 1:10 PM MINE SHIFTER Narrative [facility] - 08/07/2023 2:13 AM MINE SHIFTER Clinical history and diagnosis->AIMEE III Number of vials->1 Testing type->Screening Last menstrual period (date if known)->7 years ago us Blake Ely MD LAB BODY FLUIDS AND STOOLS ORD ERABLES Final Result [facility] Department [place] [address] * Serum Hepatitis C ab (07/02/2015 4:53 PM CDT) HCV ab Negative Negative HISTORICAL RESULTS Serum 07/02/2015 4:53 PM CDT us Hanane Mcmullen MD LAB BLOOD ORDERABLES Final Resul t HISTORICAL RESULTS from Last 3 Months or Most Recently Relevant to Health Maintenance Insurance [facility] CLAIMS [employer] OPEN ACCESS [facility] CLAIMS [facility] CLAIMS Advance Directives For more information, please contact: [phone] * Full Code (Latest Code Status on File) Date Activated Date Inactivated Comments 07/10/2022 10:47 AM 07/10/2022 5:01 PM * Full Code Date Activated Date Inactivated Comments 11/15/2018 12:12 PM 11/15/2018 4:55 PM Care Teams Electrical Test Engineer Relationship Specialty Start Date End Date Precious Mcmahan MD PCP - General Family Medicine 09/03/17 Unknown, Notinfile Referring Physician 10/23/20
--- OUTSIDE RECORDS SUMMARY | 2024-10-06 01:17 | XMS_ITS | Referral Summary ---
Author Organization [facility] Address [address] [place] [address] Care Team Providers Care Compliance Professional Name Role Phone Precious Mcmahan MD Primary Care Provider [phone] Unknown, Notinfile Unavailable Unavailable Encounters Date Type Department Care Team Description 09/05/2024 10:45 AM COMPLAINT EVALUATION SUPERVISOR Office Visit [facility] Obstetrics and Gynecology [address] [facility] [address] 13[address] [place] [address] [place] [address] Dominga Potts MD AIMEE III (vulvar intraepithelial neoplasia III) from Last 3 Months Allergies Active Allergy Reactions Criticality Noted Date Comments Cat Dander Other (See comments) Low 06/09/2023 Ciprofloxacin Urticaria Medium 02/05/2024 Dog Dander Other (See comments) Low 06/09/2023 Penicillins Nausea And Vomiting 10/09/2023 Sulfamethoxazole-Trimethoprim Urticaria Medium 2023 [place] Pollen Other (See comments) Low 06/09/2023 Medications [...] (10/21/2018): Added automatically from request for surgery [id number] Assessment & Plan (05/16/2024 11:54 AM CDT): Lesions resolved with Aldara. Return to clinic in 3 months. Signs and symptoms of recurrence reviewed. Laser ablation and or resection will be reserved for severe extensive lesions. 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 Immunizations Name Administration Dates Next Due Influenza, Quadrivalent, Hig h Dose, Preservative Free, Intrr 06/04/2014 Influenza, Quadrivalent, Spl it, Preservative Free, Intramuscular 07/05/2021 Influenza, Trivalent, High D ose, Split, Preservative Free, Intramuscular 06/04/2014 Influenza, Trivalent, IM (MDV) 07/14/2017,2012 Influenza, Trivalent, Preservative Free, Intramu scular 2017 Influenza, Unspecified 06/03/2017,06/03/2017 Tdap 05/04/2021,07/23/2011 ZOSTER Recombinant 04/12/2022,01/02/2022 Social History Tobacco Use Types Packs/Day Years [...] on file Legal Sex Female 3:48 AM COMPLAINT EVALUATION SUPERVISOR Gender Identity Not on file Sexual Orientation Not on file Last Filed Vital Signs Vital Sign Reading Time Taken Comments Blood Pressure 119/78 09/05/2024 10:56 AM COMPLAINT EVALUATION SUPERVISOR Pulse 78 09/05/2024 10:56 AM COMPLAINT EVALUATION SUPERVISOR Temperature 36.8 ??C (98.2 ??F) 09/05/2024 1 0:56 AM COMPLAINT EVALUATION SUPERVISOR Respiratory Rate 16 09/05/2024 10:5 6 AM COMPLAINT EVALUATION SUPERVISOR Oxygen Saturation 99% 05/16/2024 11: 17 AM CDT Inhaled Oxygen Concentration - - Weight 108.1 kg (238 lb 4.8 oz) 024 10:56 AM COMPLAINT EVALUATION SUPERVISOR Height 170.2 cm (5' 7.01 ) 09/05/2024 1 0:56 AM COMPLAINT EVALUATION SUPERVISOR Body Mass Index 37.31 09/05/2024 10:56 AM COMPLAINT EVALUATION SUPERVISOR Plan of Treatment Not on file Procedures Procedure Name Priority Date/Time Associated Diagnosis Comments HIGH RISK HPV DNA DETECTION WITH GENOTYPING Routine 08/05/2023 9:30 AM COMPLAINT EVALUATION SUPERVISOR AIMEE III (vulvar intraepithelial neoplasia III) SERUM HEPATITIS C AB Routine 07/02/2015 4:53 PM CDT from Last 3 Months or Most Recently Relevant to Health Maintenance Results * High Risk HPV DNA Detection with Genotyping (Molecular component) (08/05/2023 9:30 AM COMPLAINT EVALUATION SUPERVISOR) Pathologist [facility] HPV HR 16 Not Detected Not Detected [facility] HPV HR 18 Not Detected Not Detected [facility] HPV HR Non 16/18 Not Detected Not Detected [facility] Comment: Interpretive Data Nucleic acid amplification for [...] this test have been verified by the [facility] Molecular Infectious Disease laboratory. Correlate with separately reported cytology results, as applicable. Interpretive data last revised 23 Endocervical 08/05/2023 9:30 AM COMPLAINT EVALUATION SUPERVISOR 08/06/2023 1:10 PM COMPLAINT EVALUATION SUPERVISOR Narrative [facility] - 08/07/2023 2:13 AM COMPLAINT EVALUATION SUPERVISOR Clinical history and diagnosis->AIMEE III Number of vials->1 Testing type->Screening Last menstrual period (date if known)->7 years ago us Blake Ely MD LAB BODY FLUIDS AND STOOLS ORD ERABLES Final Result [facility] Department [place] [address] * Serum Hepatitis C ab (07/02/2015 4:53 PM CDT) Pathologist [facility] [place] HCV ab Negative Negative HISTORICAL RESULTS Serum 07/02/2015 4:53 PM CDT us Hanane Mcmullen MD LAB BLOOD ORDERABLES Final Resul t HISTORICAL RESULTS from Last 3 Months or Most Recently Relevant to Health Maintenance Insurance [facility] CLAIMS Assured Labor OPEN ACCESS [facility] CLAIMS [facility] CLAIMS Advance Directives For more information, please contact: [phone] * Full Code (Latest Code Status on File) Date Activated Date Inactivated Comments 07/10/2022 10:47 AM 07/10/2022 5:01 PM * Full Code Date Activated Date Inactivated Comments 11/15/2018 12:12 PM 11/15/2018 4:55 PM Care Teams Compliance Professional Relationship Specialty Start Date End Date Precious Mcmahan MD PCP - General Family Medicine 09/03/17 Unknown, Notinfile Referring Physician 10/23/20
--- OUTSIDE RECORDS SUMMARY | 2024-10-06 01:17 | XMS_ITS ---
Author Organization [facility] Address [address] [place] [address] Care Team Providers Care Landfill Gas Collection System Operator Name Role Phone Precious Mcmahan Primary Care Provider Dawson Freedman Unavailable [phone] REASON FOR VISIT [facility] Weight Loss, on tirzepatide, no side effects, appetite suppression is okay , frustrated with slow progress, Desired weight loss: 30 lbs for surgery, -0.8 lbs since last visit, -14.2 lbs total, No history MTC or MEN2 or pancreatitis, Concerned about future DM and OA Medications Medication SIG (Take, Route, Frequency, Duration) Notes Start Date End Date Status Myrbetriq 25 MG 1 tab(s) orally once a day Not-Taking ZyrTEC Allergy 10 MG 1 tab(s) orally once a day Not-Taking Flonase Allergy Relief 50 MCG/ACT 2 spray(s) intranasally once a day Not-Taking Diclofenac Sodium 75 MG 1 tab(s) orally 2 times a day Active Cosentyx Sensoready Pen 150 MG/ML (PRIOR AUTH: RX REF#:[id number]) for 56 *Please review and pick correct strength-formulati on from Medispan options. If intended option is not shown, discontinue and re-order from Quick Search* Not-Taking Flonase Allergy Relief 50 MCG/ACT 2 spray(s) intranasally once a day for 90 days Active Azelastine HCl 137 MCG/SPRAY 2 spray(s) intranasally 2 times a day for 90 days Active Xyzal Allergy 24HR 5 MG 1 tablet PO daily for 30 09/21/2018 Active Clobex [place] 0.05 % (Prior Auth: Rx Ref#:[id number]) for 90 Not-Taking Meloxicam 7.5 MG (Prior Auth: Rx Ref#:[id number]) for 90 Not-Taking Otezla 30 MG 1 tab(s) orally 2 times a day Active Vitamin D3 50 MCG (2000 UT) 1 cap(s) orally once a day Active B-12 1000 MCG 1 tab(s) orally once a day Active ZyrTEC Allergy 10 MG 1 tab(s) orally once a day for 90 days Active Sertraline HCl 100 MG 1 tab(s) orally once a day Active Vital Signs Height 67 in 04/18/2024 Weight 234.0 lbs 04/18/2024 BMI 36.65 kg/m2 04/18/2024 Encounters Encounter Location Date Provider Diagnosis [facility] [place] ([address]) [address] [address] 04/18/2024 Dawson Bolton Chronic fatigue, unspecified R53.82 ; Abnormal weight gain R63.5 ; Other fatigue R53.83 and Other malaise R53.81 Assessments Encounter Date Diagnosis (ICD Code) Assessment Notes Treatment Notes Treatment Clinical Notes Section Notes 04/18/2024 Chronic fatigue, unspecified (ICD-10 - R53.82) 04/18/2024 Abnormal weight gain (ICD-10 - R63.5) 04/18/2024 Other fatigue (ICD-10 - R53.83) 04/18/2024 Other malaise (ICD-10 - R53.81) Plan Of Treatment Next Appt Details Follow Up: 1 Week, Reason: G LP-1 Agonist Administration Procedure Notes * Category Sub-Category Detail Notes [facility] tirzepatide Indication: weig ht loss Concentration: 10 mg/mL Volume Administered: 0.75 mL Dose Administered: 7.5 mg Increase dosin g due to lack of perceived benefit Route: SQ Location: Right abdomen Frequency: weekly Lot Number/Expiration: Medication Source: [facility] Adverse Reaction: None Progress Notes * Kishan GOULD KDOB:1965 (59 yo F)Acc No.[id number]:04/18/2024 Weight Loss Patient:?Kishan GOULD Provider:?Dawson Bolton MD :1965???Age:58 Y???Sex:Female D ate:04/18/2024 Address:[address] , [facility] Pcp:Precious Mcmahan Subjective: * Chief Complaints: * ???1. [facility] Weight L oss, on tirzepatide, no side effects, appetite suppression is okay , frustrated with slow progress. 2. Desired weight loss: 30 lbs for surgery, -0.8 lbs since last visit, -14.2 lbs total. 3. No history MTC or [...] 1 tablet PO daily , Not-Taking/PRN Clobex [place] 0.05 % Liquid (Prior Auth: Rx Ref#:[id number]) , Not-Taking/PRN Meloxicam 7.5 MG Tablet (Prior Auth: Rx Ref#:[id number]) , Not-Taking/PRN Cosentyx Sensoready Pen 150 MG/ML SOLUTION (PRIOR AUTH: RX REF#:[id number]) , Notes to Pharmacist: *Please review and [...] day Objective: * Vitals:?Ht: 67 in, Wt: 234.0 lbs, BMI:36.65Index. Assessment: * Assessment: 1.?Abnormal weight gain - R6 3.5 (Primary)???2.?Chronic fatigue, unspecified - R53.82???3.?Other fatigue - R53.83???4.?Other malaise - R53.81??? Plan: * Treatment: * Procedures:?[facility]: Weight Management:?tirzepatide ?Indication?weight loss ?Concentration?10 mg/mL ?Volume Administered?0.75 mL ?Dose Administered?7.5 mg Increase dosing due to lack of perceived benefit ?Route?SQ ?Location?Right abdomen ?Frequency?weekly ?Lot Number/Expiration?Medication Source?[facility] ?Adverse Reaction?None? * Follow Up:?1 Week (Reason: G LP-1 Agonist Administration) * Billing Information: * Visit Code:? * Procedure Codes:? 43061 [facility] - Weekly (tirzepatide) Tier 2. * Electronic signature of Dipti Bolton MD, FAAAAI on 10/06/2024 at 01:17 AM MANAGEMENT DEPARTMENT CHAIR Sign off status: Pending * Provider:?Dawson Bolton MD Date:?04/18 Generated for Maggiei kevin/Shabbir/eTransmitting on:?10/06/2024 01:17 AM MANAGEMENT DEPARTMENT CHAIR
--- OUTSIDE RECORDS SUMMARY | 2024-10-06 01:18 | XMS_ITS ---
Author Organization [facility] Address [address] [address] Care Team Providers Care National Facilities Manager Name Role Phone Precious Mcmahan MD Primary Care Provider TRACEE Kaye Unavailable [phone] REASON FOR VISIT no improvement on spider veins Medications Medication SIG (Take, Route, Frequency, Duration) Notes Start Date End Date Status Ciprofloxacin HCl 500 MG Oral for 5 Days Active Mupirocin Calcium 2 % External for 15 Days Active oxyBUTYnin Chloride ER 5 MG Oral for 90 Days Active Ketoconazole 2 % External for 25 Days Active Sulfamethoxazole-Trimethopri m 800-160 MG Oral for 10 Days Active predniSONE 10 MG Oral for 10 Days Active Omeprazole 20 MG Oral for 90 Days Active Solifenacin Succinate 10 MG Oral for 90 Days Active Imiquimod 5 % External for 28 Days Active Otezla 30 MG 1 tablet Orally Twic e a day Active Sertraline HCl 100 MG 1 tablet Orally On ce a day Active diphenhydrAMINE HCl 25 MG 1 capsule at b edtime as needed Orally Once a day for 30 day(s) 02/29/2024 Active Multi Vitamin - 1 tablet Orally Once a day for 30 day(s) 02/29/2024 Active Problems Problem Type SNOMED Code ICD Code Onset Dates Problem Status W/U Status Risk Notes Problem Morbid obesity (disorder) (759344189) Morbid (severe) obesity due to excess calories (E66.01) Active confirmed Vital Signs Blood pressure systolic 138 mm Hg 08/29/20 24 Blood pressure diastolic 67 mm Hg 024 Heart Rate 83 /min 08/29/2024 Respiratory Rate 16 /min 08/29/2024 Height 67 in 08/29/2024 Weight 235 lbs 08/29/2024 BMI 36.8 kg/m2 08/29/2024 Encounters [place]counter [place] [address] 08/29/2024 TRACEE CALDERÓN Varicose veins of bilateral lower extremities with pain I83.813 ; Lymphedema, not elsewhere classified I89.0 ; Pain in leg, unspecified M79.606 and Morbid (severe) obesity due to excess calories E66.01 Assessments Encounter Date Diagnosis (ICD Code) Assessment Notes Treatment Notes Treatment Clinical Notes Section Notes 08/29/2024 Varicose veins of bilateral lower extremities with pain (ICD-10 - I83.813) Right knee area injected with 0.5 % jazmyn,no issues 08/29/2024 Lymphedema, not elsewhere classified (ICD-10 - I89.0) 08/29/2024 Pain in leg, unspecified (ICD-10 - M79.606) 08/29/2024 Morbid (severe) obesity due to excess calories (ICD-10 - E66.01) Needs more weight loss,to get mounjaro Plan Of Treatment Treatment Notes Assessment Notes Varicose veins of bilateral lower extremities with pain Right knee area injected with 0.5 % jazmyn,no issues Morbid (severe) obesity due to excess calories Needs more weight loss,to get mounjaro Next Appt Details Follow Up: 2 Months, Reason: Provider Name:TRACEE BARTON, 10/31/2024 09:45:00 AM, [address] [place] [address], [id number], Progress Notes * Kishan GOULDDOB:1965 ( 59 yo F)Acc No.[id number]:08/29/2024 Vascular f/u Patient:?Kishan GOULD Provider:?Tracee Calderón MD :1965???Age:59 Y???Sex:Female D ate:08/29/2024 [facility] Pcp:Precious Mcmahan MD Subjective: * Chief Complaints: * ???No improvement on spider veins * HPI: ???Patient presents for:?59 yowf,with long history of Lymphedema,treated maximally with pt/pump/compression,had recently a non healing wound for several months after trauma to left leg,how healed,still with edema,leh pains,heaviness,cramping,failing max med rx including stocking,all symptoms affecting her ADL,no dvt/thromboembolism,has obesity,djd,psoriasis,madi/cpap,has FH of cad/MVP,legs still hurting,varices still there ,behind right knee. * ROS:?General/Constitutional:?Denies?Chills.?Denies?Fatigue.?Denies?Fever.?Denies?Headache.?Denies?Light headedness.?Denies?Night sweats.?Denies?Sleep disturbance.?Denies?Weight gain.?Denies?Weight loss.?Endocrine:?Denies?Acne.?Denies?Cold intolerance.?Denies?Diabetes.?Denies?Difficulty sleeping.?Denies?Dizziness.?Denies?Excessive sweating.?Denies?Excessive thirst.?Denies?Frequent urination.?Denies?Hair loss.?Denies?Heat intolerance.?Denies?Hot flashes.?Denies?Irregular menses.?Denies?Thyroid problems.?Denies?Weakness.?Denies?Weight loss.?Cardiovascular:?Denies?Chest pain.?Denies?Chest pain at rest.?Denies?Chest pain with exertion.?Admits?Claudication.?Denies?Cyanosis.?Denies?Difficulty laying flat.?Denies?Dizziness.?Denies?Dyspnea on exertion.?Denies?Fluid accumulation in the legs.?Denies?Heart murmur.?Denies?Heart problems.?Denies?High blood pressure.?Admits?Irregular heartbeat.?Denies?Orthopnea.?Denies?Palpitations.?Denies?Rheumatic fever.?Denies Shortness of breath.?Denies?Swelling in hands/feet.?Denies?Weakness.?Denies?Weight gain.?Peripheral Vascular:?Admits?Pain/cramping in legs after exertion.?Admits?Painful extremities.?Denies?Ulceration of feet.?Neurologic:?Denies?Balance difficulty.?Denies?Coordination.?Denies?Difficulty speaking.?Denies?Dizziness.?Denies?Fainting.?Denies?Gait abnormality.?Denies?Headache.?Denies?Irritability.?Denies Loss of strength.?Denies?Loss of use of extremity.?Denies?Low back pain.?Denies?Memory loss.?Denies?Pain.?Denies?Paralysis.?Denies?Seizures.?Stroke?Denies.?Denies?Tics .?Admits?Tingling/Numbness.?Denies&#1 60;Transient loss of vision.?Denies?Tremor.? * Medical History:? * Medications:?TakingSertralin e HCl 100 MG Tablet 1 tablet Orally Once a day Otezla 30 MG Tablet 1 tablet Orally Twice a day Imiquimod 5 % Cream External Solifenacin Succinate 10 MG Tablet Oral Omeprazole 20 MG Capsule Delayed Release Oral predniSONE 10 MG Tablet Oral Ciprofloxacin HCl 500 MG Tablet Oral Mupirocin Calcium 2 % Cream External Sulfamethoxazole-Trimethoprim 800-160 MG Tablet Oral Ketoconazole 2 % Cream External oxyBUTYnin Chloride ER 5 MG Tablet Extended Release 24 Hour Oral diphenhydrAMINE HCl 25 MG Capsule 1 capsule at bedtime as needed Orally Once a day Multi Vitamin - Tablet 1 tablet Orally Once a day Taking Sertraline HCl 100 MG Tablet 1 tablet Orally Once a day Taking Otezla 30 MG Tablet 1 tablet Orally Twice a day Taking Imiquimod 5 % Cream External Taking Solifenacin Succinate 10 MG Tablet Oral Taking Omeprazole 20 MG Capsule Delayed Release Oral Taking predniSONE 10 MG Tablet Oral Taking Ciprofloxacin HCl 500 MG Tablet Oral Taking Mupirocin Calcium 2 % Cream External Taking Sulfamethoxazole-Trimethoprim 800-160 MG Tablet Oral Taking Ketoconazole 2 % Cream External Taking oxyBUTYnin Chloride ER 5 MG Tablet Extended Release 24 Hour Oral Taking diphenhydrAMINE HCl 25 MG Capsule 1 capsule at bedtime as needed Orally Once a day Taking Multi Vitamin - Tablet 1 tablet Orally Once a day Objective: * Vitals:?O2: 98, BP:138/67mm Hg, HR:83/min, Wt:235lbs, BMI:36.8Index, Ht: 67 in, RR:16/min. * Examination: ???General Examination: ?GENERAL APPEARANCE:?in no acute distress, well developed, well nourished.?HEAD:?normocephalic, atraumatic.?EYES:?pupils equal, round, reactive to light and accommodation.?EARS:?normal.?ORAL CAVITY:?mucosa moist.?THROAT:?clear.?NECK/THYROID:?neck supple, full range of motion, no cervical lymphadenopathy.?SKIN:?no suspicious lesions, warm and dry.?HEART:?no murmurs, regular rate and rhythm, S1, S2 normal.?LUNGS:?clear to auscultation bilaterally.?ABDOMEN:?normal, bowel sounds present, soft, nontender, nondistended.?EXTREMITIES:?no clubbing, cyanosis, 1-2+ edema/ruffin/ceap5,decreased pulses.?NEUROLOGIC:?nonfocal, motor strength normal upper and lower extremities, sensory exam intact.? Assessment: * Assessment: 1.?Varicose veins of bilater al lower extremities with pain - I83.813 (Primary)???2.?Lymphedema, not elsewhere classified - I89.0???3.?Pain in leg, unspecified - M79.606???4.?Morbid (severe) obesity due to excess calories - E66.01??? Plan: * Treatment: 2.?Morbid (severe) obesity d ue to excess calories? Notes: Needs more weight loss,to get mounjaro?? * Procedure Codes:? * Follow Up:?2 Months * * ONHOLE MACHINE OPERATOR Sign off status: Completed true * Provider:?Tracee Calderón MD Date:?1 10/30/2023 Generated for Reji brown/Shabbir/Ceciliaitting on:?10/06/2024 01:18 AM BUTTONHOLE MACHINE OPERATOR History and Physical Notes * HPI (History of Present Illness) Category Sub-Category Detail Notes Category Not es Patient presents for 59 yowf ,with long history of Lymphedema,treated maximally with pt/pump/compression,had recently a non healing wound for several months after trauma to left leg,how healed,still with edema,leh pains,heaviness,cramping,fail ing max med rx including stocking,all symptoms affecting her ADL,no dvt/thromboembolism,has obesity,djd,psoriasis,madi/cpa p,has FH of cad/MVP,legs still hurting,varices still there ,behind right knee Examination Category Sub-Category Detail Notes Category Not es General Examination GENERAL APPEARANCE: in no ac junior distress, well developed, well nourished HEAD: normocephalic, atrau matic EYES: pupils equal, round, reactive to light and accommodation EARS: normal THROAT: clear NECK/THYROID: neck supple, full ra nge of motion, no cervical lymphadenopathy HEART: no murmurs, regular rate and rhythm, S1, S2 normal LUNGS: clear to auscultatio n bilaterally ABDOMEN: normal, bowel sounds present, soft, nontender, nondistended NEUROLOGIC: nonfocal, motor stre ngth normal upper and lower extremities, sensory exam intact SKIN: no suspicious lesion s, warm and dry EXTREMITIES: no clubbing, cyanosi s, 1-2+ edema/ruffin/ceap5,decreased pulses ORAL CAVITY: mucosa moist
--- OUTSIDE RECORDS SUMMARY | 2024-10-06 01:18 | XMS_ITS | Patient Health Record ---
Author Organization [facility] Address [address] [address] Care Team Providers Care Dry Cleaner Name Role Phone Precious Mcmahan MD Primary Care Provider TRACEE Kaye Unavailable [phone] Allergies Allergen (clinical drug ingredient) Drug/Non Drug Allergy documented on EMR Reaction Allergy Type Onset Date Status sulfameth (uncoded) Unknown Allergy Active ciprofloxacin Ciprofloxacin Unknown Drug Allergy Active trimethoprim Trimethoprim Unknown Drug Allergy A ctive Reason For Referral No Information Medications Medication SIG (Take, Route, Frequency, Duration) Notes Start Date End Date Status Ciprofloxacin HCl 500 MG Oral for 5 Days Active predniSONE 10 MG Oral for 10 Days Active Sertraline HCl 100 MG 1 tablet Orally On ce a day Active diphenhydrAMINE HCl 25 MG 1 capsule at b edtime as needed Orally Once a day for 30 day(s) 02/29/2024 Active oxyBUTYnin Chloride ER 5 MG Oral for 90 Days Active Ketoconazole 2 % External for 25 Days Active Sulfamethoxazole-Trimethopri m 800-160 MG Oral for 10 Days Active Omeprazole 20 MG Oral for 90 Days Active Solifenacin Succinate 10 MG Oral for 90 Days Active Imiquimod 5 % External for 28 Days Active Otezla 30 MG 1 tablet Orally Twic e a day Active Multi Vitamin - 1 tablet Orally Once a day for 30 day(s) 02/29/2024 Active Mupirocin Calcium 2 % External for 15 Days Active Social History Tobacco Use: Social History Observation Description Date Details (start date - stop date) Former Smoker NA - NA Tobacco Use/Smoking Question Answer Notes Are you a former smoker How long has it been since you last smoked? > 10 years Additional Findings: Tobacco Non-User Ex-cigaret te smoker Alcohol Screen (Audit-C) Question Answer Notes Did you have a drink contain ing alcohol in the past year? Yes How often did you have a dri nk containing alcohol in the past year? Monthly or less (1 point) How many drinks did you have on a typical day when you were drinking in the past year? 3 or 4 drinks (1 point) How often did you have 6 or more drinks on one occasion in the past year? Less than monthly (1 point) Points 3 Interpretation Positive Problems Problem Type SNOMED Code ICD Code Onset Dates Problem Status W/U Status Risk Notes Problem Morbid obesity (disorder) (887226844) Morbid (severe) obesity due to excess calories (E66.01) Active confirmed Problem Obesity due to excess calories (973714555) Other obesity due to excess calories (E66.09) Active confirmed Problem Pain co-occurrent and due to varicose veins of bilateral legs (85552357795384 100) Varicose veins of bilateral lower extremities with pain (I83.813) Active confirmed Problem Lymphedema (186400033) Lymphedema, not elsewhere classified (I89.0) Active confirmed Vital Signs Heart Rate 83 /min 08/29/2024 Respiratory Rate 16 /min 08/29/2024 Blood pressure diastolic 67 mm Hg 08/29/2024 Height 67 in 08/29/2024 Blood pressure systolic 138 mm Hg 08/29/2024 Weight 235 lbs 08/29/2024 BMI 36.8 kg/m2 08/29/2024 Encounters Encounter Location Date Provider Diagnosis [address] [address] 04/08/2024 TRACEE STEPHANE Varicose veins of bilateral lower extremities with pain I83.813 ; Lymphedema, not elsewhere classified I89.0 and Pain in leg, unspecified M79.[address] [address] 05/02/2024 TRACEE STEPHANE Varicose veins of bilateral lower extremities with pain I83.813 ; Lymphedema, not elsewhere classified I89.0 and Pain in leg, unspecified M79.[address] [id number] 07/04/2024 TRACEE STEPHANE [address] [address] 02/29/2024 TRACEEYAZMIN CALDERÓN Other obesity due to excess calories E66.09 ; Pain in leg, unspecified M79.606 ; Varicose veins of bilateral lower extremities with pain I83.813 and Lymphedema, not elsewhere classified I89.0 [facility] [address] [address] 03/11/2024 TRACEE STEPHANE Varicose veins of bilateral lower extremities with pain I83.813 ; Lymphedema, not elsewhere classified I89.0 and Pain in leg, unspecified M79.[address] [address] 03/28/2024 TRACEE STEPHANE Varicose veins of bilateral lower extremities with pain I83.813 ; Lymphedema, not elsewhere classified I89.0 and Pain in leg, unspecified M79.[address] [address] 08/29/2024 TRACEE STEPHANE Varicose veins of bilateral lower extremities with pain I83.813 ; Lymphedema, not elsewhere classified I89.0 ; Pain in leg, unspecified M79.606 and Morbid (severe) obesity due to excess calories E66.01 [facility] [address] [address] 05/02/2024 TRACEE CALDERÓN [facility] [address] [address] 02/29/2024 TRACEE CALDERÓN [facility] [address] [address] 03/14/2024 TRACEE CALDERÓN [facility] [address] [address] 04/08/2024 TRACEE CALDERÓN [facility] [address] [address] 04/08/2024 TRACEE CALDERÓN [facility] [address] [address] 08/29/2024 TRACEE CALDERÓN Assessments Encounter Date Diagnosis (ICD Code) Assessment Notes Treatment Notes Treatment Clinical Notes Section Notes 02/29/2024 Pain in leg, unspecified (ICD-10 - M79.606) 03/11/2024 Varicose veins of bilateral lower extremities with pain (ICD-10 - I83.813) 03/11/2024 Lymphedema, not elsewhere classified (ICD-10 - I89.0) 02/29/2024 Other obesity due to excess calories (ICD-10 - E66.09) Would benefit from weight loss,water aerobics 03/28/2024 Varicose veins of bilateral lower extremities with pain (ICD-10 - I83.813) 05/02/2024 Varicose veins of bilateral lower extremities with pain (ICD-10 - I83.813) 04/08/2024 Varicose veins of bilateral lower extremities with pain (ICD-10 - I83.813) 08/29/2024 Varicose veins of bilateral lower extremities with pain (ICD-10 - I83.813) Right knee area injected with 0.5 % jazmyn,no issues 08/29/2024 Lymphedema, not elsewhere classified (ICD-10 - I89.0) 08/29/2024 Pain in leg, unspecified (ICD-10 - M79.606) 04/08/2024 Lymphedema, not elsewhere classified (ICD-10 - I89.0) 05/02/2024 Lymphedema, not elsewhere classified (ICD-10 - I89.0) 03/28/2024 Lymphedema, not elsewhere classified (ICD-10 - I89.0) 02/29/2024 Varicose veins of bilateral lower extremities with pain (ICD-10 - I83.813) Recommend use of 20-30mmhg graduated compression stockings today. Will continue with all conservative measures, including compression stockings, leg elevation, exercise, and NSAID-s. Will schedule for VRS of BLE to better understand patient's venous disease. Further recommendations will follow. 03/11/2024 Pain in leg, unspecified (ICD-10 - M79.606) 02/29/2024 Lymphedema, not elsewhere classified (ICD-10 - I89.0) Continue current therapy 03/28/2024 Pain in leg, unspecified (ICD-10 - M79.606) Venous reflux studies demonstrate no significant venous reflux disease in lower extremities. Will start conservative therapy with compression stockings, leg elevation, exercise and NSAID-s. Further recommendations will follow.Has symptomatic spider veins.Discussed VS-500 doll per leg 05/02/2024 Pain in leg, unspecified (ICD-10 - M79.606) Sp left and right leg spider injections,no issues,0.3% jazmyn used 08/29/2024 Morbid (severe) obesity due to excess calories (ICD-10 - E66.01) Needs more weight loss,to get mounjaro 04/08/2024 Pain in leg, unspecified (ICD-10 - M79.606) sp right leg vs-total 20 cc used of 0.3 jazmyn,no issues Plan Of Treatment Next Appt Details Provider Name:TRACEE BARTON, 10/31/2024 09:45:00 AM, [address] [place], [place], [id number], Insurance Providers Payer Name Payer Address Payer Phone Subscriber Number Group Number Insured Name Patient Relationship to Insured Coverage Start Date Coverage End Date [facility] [address] [place] [address] [phone] Kishan Rodriguez Self - patient is the insured Medical (General) History Medical History History ICD Code obesity psoriasis Arthritis
--- OUTSIDE RECORDS SUMMARY | 2024-10-06 01:18 | XMS_ITS ---
Author Organization [facility] Address [address] [place] [address] Care Team Providers Care Excel Vba Developer Name Role Phone Precious Mcmahan Primary Care Provider Dawson Freedman Unavailable [phone] REASON FOR VISIT [facility] Weight Loss, on tirzepatide, no side effects, appetite suppression pretty good , Desired weight loss: 30 lbs for surgery, -0 lbs since last visit, -13.4 lbs total, No history MTC or MEN2 or pancreatitis, Concerned about future DM and OA Medications Medication SIG (Take, Route, Frequency, Duration) Notes Start Date End Date Status Azelastine HCl 137 MCG/SPRAY 2 spray(s) intranasally 2 times a day for 90 days Active Flonase Allergy Relief 50 MCG/ACT 2 spray(s) intranasally once a day for 90 days Active Xyzal Allergy 24HR 5 MG 1 tablet PO daily for 30 09/21/2018 Active Clobex [place] 0.05 % (Prior Auth: Rx Ref#:[id number]) for 90 Not-Taking Meloxicam 7.5 MG (Prior Auth: Rx Ref#:[id number]) for 90 Not-Taking ZyrTEC Allergy 10 MG 1 tab(s) orally once a day for 90 days Active Sertraline HCl 100 MG 1 tab(s) orally once a day Active Otezla 30 MG 1 tab(s) orally 2 times a day Active Vitamin D3 50 MCG (1999 UT) 1 cap(s) orally once a day Active B-12 1000 MCG 1 tab(s) orally once a day Active Myrbetriq 25 MG 1 tab(s) orally once a day Not-Taking ZyrTEC Allergy 10 MG 1 tab(s) orally once a day Not-Taking Flonase Allergy Relief 50 MCG/ACT 2 spray(s) intranasally once a day Not-Taking Diclofenac Sodium 75 MG 1 tab(s) orally 2 times a day Active Cosentyx Sensoready Pen 150 MG/ML (PRIOR AUTH: RX REF#:[id number]) for 56 *Please review and pick correct strength-formulati on from Medispan options. If intended option is not shown, discontinue and re-order from Quick Search* Not-Taking Vital Signs Height 67 in 04/11/2024 Weight 234.8 lbs 04/11/2024 BMI 36.77 kg/m2 04/11/2024 Encounters Encounter Location Date Provider Diagnosis [facility] ([address]) [address] [address] 04/11/2024 Dawson Bolton Chronic fatigue, unspecified R53.82 ; Abnormal weight gain R63.5 ; Other fatigue R53.83 and Other malaise R53.81 Assessments Encounter Date Diagnosis (ICD Code) Assessment Notes Treatment Notes Treatment Clinical Notes Section Notes 04/11/2024 Chronic fatigue, unspecified (ICD-10 - R53.82) 04/11/2024 Abnormal weight gain (ICD-10 - R63.5) 04/11/2024 Other fatigue (ICD-10 - R53.83) 04/11/2024 Other malaise (ICD-10 - R53.81) Plan Of Treatment Next Appt Details Follow Up: 1 Week, Reason: G LP-1 Agonist Administration Procedure Notes * Category Sub-Category Detail Notes [facility] Weight Management tirzepatide Indication: weig ht loss Concentration: 10 mg/mL Volume Administered: 0.7 mL Dose Administered: 7 mg Route: SQ Location: [facility] Frequency: weekly Lot Number/Expiration: Medication Source: [facility] [employer] Adverse Reaction: None Progress Notes * Kishan GOULD KDOB:1965 (59 yo F)Acc No.[id number]:04/11/2024 Weight Loss Patient:?Kishan GOULD Provider:?Dawson Bolton MD :1965???Age:58 Y???Sex:Female D ate:04/11/2024 Address:[facility] [address] Pcp:Precious Mcmahan Subjective: * Chief Complaints: * ???1. [facility] Weight L oss, on tirzepatide, no side effects, appetite suppression pretty good . 2. Desired weight loss: 30 lbs for surgery, -0 lbs since last visit, -13.4 lbs total. [...] 1 tablet PO daily , Not-Taking/PRN Clobex [place] 0.05 % Liquid (Prior Auth: Rx Ref#:[id number]) , Not-Taking/PRN Meloxicam 7.5 MG Tablet (Prior Auth: Rx Ref#:[id number]) , Not-Taking/PRN Cosentyx Sensoready Pen 150 MG/ML SOLUTION (PRIOR AUTH: RX REF#:[id number]) , Notes to Pharmacist: *Please review and [...] ?Volume Administered?0.7 mL ?Dose Administered?7 mg ?Route?SQ ?Location?[facility] ?Frequency?weekly ?Lot Number/Expiration?Medication Source?[facility] ?Adverse Reaction?None? * Follow Up:?1 Week (Reason: G LP-1 Agonist Administration) * Billing Information: * Visit Code:? * Procedure Codes:? [address]0828 [facility] - Weekly (tirzepatide) Tier 2. * Electronic signature of Dipti Bolton MD, FAAAAI on 10/06/2024 at 01:18 AM WATCH ASSEMBLER Sign off status: Pending * Provider:?Dawson Bolton MD Date:?04/11 Generated for Reji brown/Shabbir/eTsantiagosmlorri on:?10/06/2024 01:18 AM WATCH ASSEMBLER
--- OUTSIDE RECORDS SUMMARY | 2024-10-06 01:18 | XMS_ITS | Data Portability ---
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 She has 7/10 pain in the left 9/10 pain on the right so she is suffering quite a bit with this. She would like to be considered for total knee replacement. I would require her to lose some weight before having surgery. Normally RPMI cough would be 40 and she is a little bit about that today. However with her history of lymphedema, there is a high probability she will develop severe swelling after knee replacement surgery and further weight loss would be appropriate to minimize the risk of severe swelling and resultant cellulitis which puts her at high risk for infection her knee replacement. I would recommend that she reduce her weight to 222 lb which would correspond to a BMI of 35. She will need to do this by dieting. I have given her handout on relationship between calories and weight loss. I have given her the Ortho info handout on total knee arthroplasty for her review. I have suggested she use a cane she has 1. I have talked to her about trying a stronger anti-inflammatory medications is diclofenac. She denies any liver kidney or peptic ulcer disease. A complete metabolic profile was reviewed in the EMR from March and her liver function tests were normal. I am going to prescribe diclofenac 75 mg twice daily. Possible side effects were discussed and she is given a handout describing possible side effects of anti-inflammatory medication use and she will have to stop the Relafen and she starts the closure MAC must never taken both. We talked about the option of a cortisone injection but the last ones have not given her any benefit so she declines. I will see her back in 3 months to assess her progress. We will check her weight at that time. 30 minutes were spent total care this patient more than half the time spent in [id number] care. Not available 07/12/2023 19:01:39 07/20/2023 07/20/2023 Impression: Patient has trigger finger problems of the right ring finger which is not triggering currently. I explained the pathophysiology of this condition to her in detail. I have discussed with her that it is likely that she has some degree of tendinitis problems with her flexor tendons which when inflamed will cause triggering in the fingers and carpal tunnel symptoms due to the crowding out of median nerve at the wrists. I have discussed her the option of a cortisone injection for the trigger finger but her symptoms have improved since she has started the diclofenac and I think that observation would be appropriate. I explained that the shots are somewhat painful. I have instructed her on use of the prior stretch exercise. She has noticed significant improvement in the last 2 weeks and is content to observe. If she has worsening symptoms in the like cortisone shot she can certainly see us at any time for that. 30 minutes were spent total care this patient more than half the time spent in [id number] care. Not available 07/26/2023 17:58:26 09/30/2023 09/30/2023 HI: Patient turn s. She is here for follow-up of her bilateral knee osteoarthritis. we saw her 3 months ago. She was started on diclofenac which she things is helping. She has moderately severe medial compartment osteoarthritis of both knees. She has worked on weight loss and is down to 240 lb. She was advised she needs to be and 220 lb for surgery in she can continue to work on that. I did offer cortisone injections today and she declined. She has had these in the past did not feel that they helped all. She has been on the diclofenac for 3 months so we will order blood work normal in we will refill the medications. She can always try cortisone injections in the future if she wishes to do that. Otherwise at this point we will see her back as needed. [email or web address] Not available 10/01/2023 13:02:55 Plan of Treatment Reminders Order Date Submit Date Provider Last Modified By Organization Details Last Modified Time Details Appointments None recorded. Lab CBC w/ auto diff 2023 024 [place] [facility], [address], [place], [address], 4 12:12:36 CMP, serum or plasma 2023 024 [place] [facility], [address], [place], [address], 4 12:12:36 Referral None recorded. Procedures None recorded. Surgeries None recorded. Imaging None recorded. Medication Orders diclofenac sodium 75 mg tablet,joe yed release 2022 023 [id number], [address], [place], [id number], 3 18:51:18 Patient TargetsNo targets recorded. Patient InstructionsNo instructions recorded. Reason for Referral None Reported. Results Created Date Observation Date Name Description Value Unit Range Abnormal Flag Note LastModifiedBy Organization Detail LastModifiedTime 07/25/20 22 07/28/2022 TSH+F REE T4 TSH 1.70 mIU/L 0.40-4 .50 normal Not Available [facility] [id number] [place] [address], [address], 07/28/2022 12:25:03 07/25/20 22 07/28/2022 TSH+F REE T4 T4, free 1.2 NG/dL 0.8-1. 8 normal Not Available [facility] [address] [place], [address], 07/28/2022 12:25:03 07/25/20 22 07/28/2022 VITAM IN D,25- OH,TO ALICE,I A vitamin D,25-oh,tota l,ia 39 NG/mL 30-100 normal Vitam in D Statu s 25-OH Vitam in D: Defic iency : <20 ng/mL Insuf ficie ncy: 20 - 29 ng/mL Optim al: > or = 30 ng/mL For 25-OH Vitam in D testi ng on patie nts on D2-colon pplem entat ion and patie nts for whom quant itati on of D2 and D3 fract ions is requi red, the [facility] Assur eD(TM ) 25-OH VIT D, (D2,D 3), LC/MS /MS is recom jordi d: order code 50655 (ancelmo ents >2yrs ). See Note 1 Note 1 For addit ional infor osile wheat refer to http: //[facility] michelle Hester gnneil ics.c om/fa q/FAQ 199 (This link is being provi ded for infor arlene childers/ educkeven pitts purpo ses only. ) Not Available [address] [address] [place], [address], 07/28/2022 12:25:03 07/25/20 22 07/28/2022 T3, FREE T3, free 3.3 pg/mL 2.3-4. 2 normal Not Available [address] [address] [place], [address], 07/28/2022 12:25:02 07/25/20 22 07/28/2022 THYRO ID PEROX IDASE ANTIB ODIES thyroid peroxidase antibodies <1 IU/mL <9 normal Not Available [address] [address] [place], [address], 07/28/2022 12:25:02 07/25/20 22 07/28/2022 COMPR EHENS NATALIA METAB OLIC PANEL glucose 86 mg/dL 65-139 normal Non-f astin g refer ence inter freddie Not Available [address] [address] [place], [address], 07/28/2022 12:25:01 07/25/20 22 07/28/2022 COMPR EHENS NATALIA METAB OLIC PANEL urea nitrogen (BUN) 12 mg/dL 7-25 normal Not Available [address], [address], 07/28/2022 12:25:01 07/25/20 22 07/28/2022 COMPR EHENS NATALIA METAB OLIC PANEL creatinine 0.76 mg/dL 0.50-1 .03 normal Not Available [address], [address], 07/28/2022 12:25:01 07/25/20 22 07/28/2022 COMPR EHENS NATALIA METAB OLIC PANEL eGFR 92 mL/mi n/1.7 3m2 > or = 60 normal The eGFR is based on the CKD-E PI 2020 equat ion. To calcu late the new eGFR from a previ ous Creat inine or Cysta tin C resul t, go to https ://gricelda patel/evan ellington s/ kdoqi /gfr% 5Fcal culat or Not Available [address], [address], 07/28/2022 12:25:01 07/25/20 22 07/28/2022 COMPR EHENS NATALIA METAB OLIC PANEL BUN/creatini ne ratio not applic able (calc ) 6-22 Not Available [address], [address], 07/28/2022 12:25:01 07/25/20 22 07/28/2022 COMPR EHENS NATALIA METAB OLIC PANEL sodium 138 mmol/ L 135-14 6 normal Not Available [address], [address], 07/28/2022 12:25:01 07/25/20 22 07/28/2022 COMPR EHENS NATALIA METAB OLIC PANEL potassium 4.1 mmol/ L 3.5-5. 3 normal Not Available [address], [address], 07/28/2022 12:25:01 07/25/20 22 07/28/2022 COMPR EHENS NATALIA METAB OLIC PANEL chloride 100 mmol/ L 98-110 normal Not Available [address], [address], 07/28/2022 12:25:01 07/25/20 22 07/28/2022 COMPR EHENS NATALIA METAB OLIC PANEL carbon dioxide 26 mmol/ L 20-32 normal Not Available [address], [address], 07/28/2022 12:25:01 07/25/20 22 07/28/2022 COMPR EHENS NATALIA METAB OLIC PANEL calcium 9.4 mg/dL 8.6-10 .4 normal Not Available [address], [address], 07/28/2022 12:25:01 07/25/20 22 07/28/2022 COMPR EHENS NATALIA METAB OLIC PANEL protein, total 7.0 g/dL 6.1-8. 1 normal Not Available [address], [address], 07/28/2022 12:25:01 07/25/20 22 07/28/2022 COMPR EHENS NATALIA METAB OLIC PANEL albumin 4.5 g/dL 3.6-5. 1 normal Not Available [address], [address], 07/28/2022 12:25:01 07/25/20 22 07/28/2022 COMPR EHENS NATALIA METAB OLIC PANEL globulin 2.5 g/dL_ (calc ) 1.9-3. 7 normal Not Available [address], [address], 07/28/2022 12:25:01 07/25/20 22 07/28/2022 COMPR EHENS NATALIA METAB OLIC PANEL albumin/glob ulin ratio 1.8 (calc ) 1.0-2. 5 normal Not Available [address], [address], 07/28/2022 12:25:01 07/25/20 22 07/28/2022 COMPR EHENS NATALIA METAB OLIC PANEL bilirubin, total 0.6 mg/dL 0.2-1. 2 normal Not Available [address], [address], 07/28/2022 12:25:01 07/25/20 22 07/28/2022 COMPR EHENS NATALIA METAB OLIC PANEL alkaline phosphatase 94 U/L 37-153 normal Not Available [address], [address], 07/28/2022 12:25:01 07/25/20 22 07/28/2022 COMPR EHENS NATALIA METAB OLIC PANEL AST 20 U/L 10-35 normal Not Available [address], [address], 07/28/2022 12:25:01 07/25/20 22 07/28/2022 COMPR EHENS NATALIA METAB OLIC PANEL ALT 15 U/L 6-29 normal Not Available [address], [address], 07/28/2022 12:25:01 07/25/20 22 07/28/2022 IRON, TIBC AND KAYLENE TIN PANEL iron, total 66 mcg/d L 45-160 normal Not Available [address], [address], 07/28/2022 12:25:01 07/25/20 22 07/28/2022 IRON, TIBC AND KAYLENE TIN PANEL iron binding capacity 376 mcg/d L_(ca lc) 250-45 0 normal Not Available [address], [address], 07/28/2022 12:25:01 07/25/20 22 07/28/2022 IRON, TIBC AND KAYLENE TIN PANEL % saturation 18 %_(ca lc) 16-45 normal Not Available [address], [address], 07/28/2022 12:25:01 07/25/20 22 07/28/2022 IRON, TIBC AND KAYLENE TIN PANEL ferritin 76 NG/mL 16-232 normal Not Available [address], [address], 07/28/2022 12:25:01 01/28/20 23 01/29/2023 IRON, TIBC AND KAYLENE TIN PANEL iron, total 51 mcg/d L 45-160 normal Not Available [address], [address], 01/29/2023 10:47:16 01/28/20 23 01/29/2023 IRON, TIBC AND KAYLENE TIN PANEL iron binding capacity 333 mcg/d L_(ca lc) 250-45 0 normal Not Available [address], [address], 01/29/2023 10:47:16 01/28/20 23 01/29/2023 IRON, TIBC AND KAYLENE TIN PANEL % saturation 15 %_(ca lc) 16-45 low Not Available [address], [address], 01/29/2023 10:47:16 01/28/20 23 01/29/2023 IRON, TIBC AND KAYLENE TIN PANEL ferritin 55 NG/mL 16-232 normal Not Available [address], [address], 01/29/2023 10:47:16 01/28/20 23 01/29/2023 COMPR EHENS NATALIA METAB OLIC PANEL glucose 97 mg/dL 65-99 normal Fasti ng refer ence inter freddie Not Available [address] [address] [place], [address], 01/29/2023 10:47:16 01/28/20 23 01/29/2023 COMPR EHENS NATALIA METAB OLIC PANEL urea nitrogen (BUN) 16 mg/dL 7-25 normal Not Available [address] [address] [place], [address], 01/29/2023 10:47:16 01/28/20 23 01/29/2023 COMPR EHENS NATALIA METAB OLIC PANEL creatinine 0.74 mg/dL 0.50-1 .03 normal Not Available [address] [address] [place], [address], 01/29/2023 10:47:16 01/28/20 23 01/29/2023 COMPR EHENS NATALIA METAB OLIC PANEL eGFR 95 mL/mi n/1.7 3m2 > or = 60 normal The eGFR is based on the CKD-E PI 2020 equat ion. To calcu late the new eGFR from a previ ous Creat inine or Cysta nohemy C resul t, go to https ://gricelda villavicencio.demetris patel/evan ellington s/ kdoqi /gfr% 5Fcal culat or Not Available [address] [address] [place], [address], 01/29/2023 10:47:16 01/28/20 23 01/29/2023 COMPR EHENS NATALIA METAB OLIC PANEL BUN/creatini ne ratio NOT APPLIC ABLE (calc ) 6-22 Not Available [address] [address] [place], [address], 01/29/2023 10:47:16 01/28/20 23 01/29/2023 COMPR EHENS NATALIA METAB OLIC PANEL sodium 138 mmol/ L 135-14 6 normal Not Available [address] [address] [place], [address], 01/29/2023 10:47:16 01/28/20 23 01/29/2023 COMPR EHENS NATALIA METAB OLIC PANEL potassium 3.9 mmol/ L 3.5-5. 3 normal Not Available [address], [address], 01/29/2023 10:47:16 01/28/20 23 01/29/2023 COMPR EHENS NATALIA METAB OLIC PANEL chloride 101 mmol/ L 98-110 normal Not Available [address], [address], 01/29/2023 10:47:16 01/28/2001/29/2023 COMPR EHENS NATALIA METAB OLIC PANEL carbon dioxide 30 mmol/ L 20-32 normal Not Available [address], [address], 01/29/2023 10:47:16 01/28/20 23 01/29/2023 COMPR EHENS NATALIA METAB OLIC PANEL calcium 9.4 mg/dL 8.6-10 .4 normal Not Available [address], [address], 01/29/2023 10:47:16 01/28/20 23 01/29/2023 COMPR EHENS NATALIA METAB OLIC PANEL protein, total 6.4 g/dL 6.1-8. 1 normal Not Available [address], [address], 01/29/2023 10:47:16 01/28/20 23 01/29/2023 COMPR EHENS NATALIA METAB OLIC PANEL albumin 4.2 g/dL 3.6-5. 1 normal Not Available [address], [address], 01/29/2023 10:47:16 01/28/20 23 01/29/2023 COMPR EHENS NATALIA METAB OLIC PANEL globulin 2.2 g/dL_ (calc ) 1.9-3. 7 normal Not Available [address], [address], 01/29/2023 10:47:16 01/28/20 23 01/29/2023 COMPR EHENS NATALIA METAB OLIC PANEL albumin/glob ulin ratio 1.9 (calc ) 1.0-2. 5 normal Not Available [address], [address], 01/29/2023 10:47:16 01/28/20 23 01/29/2023 COMPR EHENS NATALIA METAB OLIC PANEL bilirubin, total 0.5 mg/dL 0.2-1. 2 normal Not Available [address], [address], 01/29/2023 10:47:16 01/28/20 23 01/29/2023 COMPR EHENS NATALIA METAB OLIC PANEL alkaline phosphatase 94 U/L 37-153 normal Not Available [facility] [employer] [address], [address], 01/29/2023 10:47:16 01/28/20 23 01/29/2023 COMPR EHENS NATALIA METAB OLIC PANEL AST 16 U/L 10-35 normal Not Available [address], [address], 01/29/2023 10:47:16 01/28/20 23 01/29/2023 COMPR EHENS NATALIA METAB OLIC PANEL ALT 16 U/L 6-29 normal Not Available [address], [address], 01/29/2023 10:47:16 01/28/20 23 01/29/2023 THYRO ID PEROX IDASE ANTIB ODIES thyroid peroxidase antibodies <1 IU/mL <9 Not Available [address], [address], 01/29/2023 10:47:17 01/28/20 23 01/29/2023 T3, FREE T3, free 3.2 pg/mL 2.3-4. 2 normal Not Available [facility] [address], [address], 01/29/2023 10:47:17 01/28/20 23 01/29/2023 VITAM IN D,25- OH,TO ALICE,I A vitamin D,25-oh,tota l,ia 32 NG/mL 30-100 normal Vitam in D Statu s 25-OH Vitam in D: Defic iency : <20 ng/mL Insuf ficie ncy: 20 - 29 ng/mL Optim al: > or = 30 ng/mL For 25-OH Vitam in D testi ng on patie nts on D2-colon pplem entat ion and patie nts for whom quant itati on of D2 and D3 fract ions is requi red, the Quest Assur eD(TM ) 25-OH VIT D, (D2,D 3), LC/MS /MS is recom jordi d: order code 72901 (ancelmo ents >2yrs ). See Note 1 Note 1 For addit ional infor osiel wheat refer to http: //[employer] gnost ics.c om/fa q/FAQ 199 (This link is being provi ded for infor arlene childers/ shaka pitts purpo ses only. ) Not Available [facility] [address] [place], [address], 01/29/2023 10:47:17 01/28/2001/29/2023 TSH+F REE T4 TSH 1.92 mIU/L 0.40-4 .50 normal Not Available [facility] [address], [address], 01/29/2023 10:47:18 01/28/20 23 01/29/2023 TSH+F REE T4 T4, free 1.0 NG/dL 0.8-1. [address] to have a dupli jamin copy faxed has been ladi macariog ed. Queue d to: [phone] Not Available [facility] [address], [address], 01/29/2023 10:47:18 01/28/2002/05/2023 PTH, INTAC T AND CALCI UM parathyroid hormone, intact 36 pg/mL 16-77 normal Inter preti ve Guide Intac t PTH Calci um ----- ----- ----- --- ----- ----- ----- -- Whit l Parat hyroi d Whit l Whit l Hypop derrick yroid ism Low or Low Whit l Low Hyper parat hyroi dism Prima ry Whit l or High High Secon demetrius High Whit l or Low Terti westley High High Non-P derrick yroid Hyper calce geno Low or Low Whit l High Not Available [employer] [address], [address], 02/05/2023 11:48:13 01/28/2002/05/2023 PTH, INTAC T AND CALCI UM calcium 9.5 mg/dL 8.6-10 .4 normal Not Available [facility] [address], [address], 02/05/2023 11:48:13 01/28/2002/05/2023 IODIN E, SERUM /PLAS MA iodine, serum/plasma 57 mcg/L 52-109 This test was devel oped and its ethel tical perfo rmanc e lencho cteri stics have been deter mined by [facility] [place], [place]. It has not been clear ed or appro sonia by the U.S. Food and Drug Admin istra tion. This assay has been valid ated pursu ant to the CLIA regul ation s and is used for clini tabitha purpo ses. Not Available [facility] [address], [address], 02/05/2023 11:48:14 01/28/2002/05/2023 CALCI TONIN calcitonin <2 pg/mL < or = 5 This test was perfo rmed using the [employer] ([employer]) Chemi lumin escen t metho d. Value s obtai taya with diffe rent assay metho ds canno t be used inter siddiqui eably . Calci tonin level s, regar dless of value , shoul d not be inter prete d as absol salt river evide nce of the prese nce or absen ce of the disea se. Not Available [address], [address], 02/05/2023 11:48:15 03/23/2003/25/2023 IRON, TIBC AND KAYLENE TIN PANEL iron, total 67 mcg/d L 45-160 normal Not Available [address], [address], 03/25/2023 09:31:27 03/23/2003/25/2023 IRON, TIBC AND KAYLENE TIN PANEL iron binding capacity 368 mcg/d L_(ca lc) 250-45 0 normal Not Available [address], [address], 03/25/2023 09:31:27 03/23/2003/25/2023 IRON, TIBC AND KAYLENE TIN PANEL % saturation 18 %_(ca lc) 16-45 normal Not Available [address], [address], 03/25/2023 09:31:27 03/23/20 23 03/25/2023 IRON, TIBC AND KAYLENE TIN PANEL ferritin 54 NG/mL 16-232 normal Not Available [address], [address], 03/25/2023 09:31:27 03/23/20 23 03/25/2023 COMPR EHENS NATALIA METAB OLIC PANEL glucose 87 mg/dL 65-139 normal Non-f astin g refer ence inter freddie Not Available [address], [address], 03/25/2023 09:31:28 03/23/20 23 03/25/2023 COMPR EHENS NATALIA METAB OLIC PANEL urea nitrogen (BUN) 17 mg/dL 7-25 normal Not Available [address], [address], 03/25/2023 09:31:28 03/23/2003/25/2023 COMPR EHENS NATALIA METAB OLIC PANEL creatinine 0.68 mg/dL 0.50-1 .03 normal Not Available [address], [address], 03/25/2023 09:31:28 03/23/20 23 03/25/2023 COMPR EHENS NATALIA METAB OLIC PANEL eGFR 102 mL/mi n/1.7 3m2 > or = 60 normal The eGFR is based on the CKD-E PI 2020 renetta magaña. To calcu late the new eGFR from a previ ous Creat inine or Cysta tin C resul t, go to https ://gricelda villavicencio.demetris patel/evan ellington s/ kdoqi /gfr% 5Fcal culat or Not Available [address], [address], 03/25/2023 09:31:28 03/23/20 23 03/25/2023 COMPR EHENS NATALIA METAB OLIC PANEL BUN/creatini ne ratio NOT APPLIC ABLE (calc ) 6-22 Not Available [address], [address], 03/25/2023 09:31:28 03/23/20 23 03/25/2023 COMPR EHENS NATALIA METAB OLIC PANEL sodium 138 mmol/ L 135-14 6 normal Not Available [address] [place], [address], 03/25/2023 09:31:28 03/23/20 23 03/25/2023 COMPR EHENS NATALIA METAB OLIC PANEL potassium 3.9 mmol/ L 3.5-5. 3 normal Not Available [address], [address], 03/25/2023 09:31:28 03/23/20 23 03/25/2023 COMPR EHENS NATALIA METAB OLIC PANEL chloride 100 mmol/ L 98-110 normal Not Available [address], [address], 03/25/2023 09:31:28 03/23/20 23 03/25/2023 COMPR EHENS NATALIA METAB OLIC PANEL carbon dioxide 31 mmol/ L 20-32 normal Not Available [address], [address], 03/25/2023 09:31:28 03/23/20 23 03/25/2023 COMPR EHENS NATALIA METAB OLIC PANEL calcium 9.5 mg/dL 8.6-10 .4 normal Not Available [address], [address], 03/25/2023 09:31:28 03/23/20 23 03/25/2023 COMPR EHENS NATALIA METAB OLIC PANEL protein, total 6.7 g/dL 6.1-8. 1 normal Not Available [address], [address], 03/25/2023 09:31:28 03/23/20 23 03/25/2023 COMPR EHENS NATALIA METAB OLIC PANEL albumin 4.5 g/dL 3.6-5. 1 normal Not Available [address], [address], 03/25/2023 09:31:28 03/23/20 03/25/2023 COMPR EHENS NATALIA METAB OLIC PANEL globulin 2.2 g/dL_ (calc ) 1.9-3. 7 normal Not Available [address], [address], 03/25/2023 09:31:28 03/23/20 23 03/25/2023 COMPR EHENS NATALIA METAB OLIC PANEL albumin/glob ulin ratio 2.0 (calc ) 1.0-2. 5 normal Not Available [address], [address], 03/25/2023 09:31:28 03/23/20 23 03/25/2023 COMPR EHENS NATALIA METAB OLIC PANEL bilirubin, total 0.4 mg/dL 0.2-1. 2 normal Not Available [address], [address], 03/25/2023 09:31:28 03/23/20 23 03/25/2023 COMPR EHENS NATALIA METAB OLIC PANEL alkaline phosphatase 88 U/L 37-153 normal Not Available [address], [address], 03/25/2023 09:31:28 03/23/20 23 03/25/2023 COMPR EHENS NATALIA METAB OLIC PANEL AST 16 U/L 10-35 normal Not Available [address], [address], 03/25/2023 09:31:28 03/23/20 23 03/25/2023 COMPR EHENS NATALIA METAB OLIC PANEL ALT 15 U/L 6-29 normal Not Available [address], [address], 03/25/2023 09:31:28 03/23/20 23 03/25/2023 THYRO ID PEROX IDASE ANTIB ODIES thyroid peroxidase antibodies <1 IU/mL <9 Not Available [address] [place], [address], 03/25/2023 09:31:29 03/23/2003/25/2023 T3, FREE T3, free 2.9 pg/mL 2.3-4. 2 normal Not Available [facility] [address] [address] [place], [address], 03/25/2023 09:31:30 03/23/2003/25/2023 VITAM IN D,25- OH,TO ALICE,I A vitamin D,25-oh,tota l,ia 42 NG/mL 30-100 normal Vitam in D Statu s 25-OH Vitam in D: Defic iency : <20 ng/mL Insuf ficie ncy: 20 - 29 ng/mL Optim al: > or = 30 ng/mL For 25-OH Vitam in D testi ng on patie nts on D2-colon pplem entat ion and patie nts for whom quant itati on of D2 and D3 fract ions is requi red, the [facility] Assur eD(TM ) 25-OH VIT D, (D2,D 3), LC/MS /MS is recom jordi d: order code 53593 (ancelmo ents >2yrs ). See Note 1 Note 1 For addit ional infor osiel wheat refer to http: //[employer] gnost ics.c om/fa q/FAQ 199 (This link is being provi ded for infor arlene childers/ shaka pitts purpo ses only. ) Not Available [facility] [address] [address] [place], [address], 03/25/2023 09:31:30 03/23/2003/25/2023 TSH+F REE T4 TSH 2.22 mIU/L 0.40-4 .50 normal Not Available [facility] [address] [address] [place], [address], 03/25/2023 09:31:31 07/17/20 23 03/25/2023 TSH+F REE T4 T4, free 1.1 NG/dL 0.8-1. 8 normal Not Available [facility] [address] [address], [place], [address], 03/25/2023 09:31:31 09/16/19 23 09/16/2022 US, thyro id No observ ation record ed. [id number] [facility] [address], [place], [address], 11/05/2022 06:48:18 10/02/1910/02/2022 fine needl e aspir ation , ultra sound guide d, thyro id (PROC ) No observ ation record ed. [id number] [facility] [address], [place], [address], 11/05/2022 06:48:18 Result Notes None recorded. Problems Name Problem SNOMED Code Status Onset Date Resolution Date Notes Provider Name and Address Organization Details Recorded Time Pain in throat 498657706 Completed Not Available [facility] 3 06:43:29 Urinary incontine nce 566165257 Active Not Available [facility] 3 06:43:29 Periphera l venous insuffici ency 97166358 Active Not Available [facility] 3 06:43:29 Thyroid nodule 313054951 Active 2021 Not Available [facility] 3 06:43:30 Fluid level behind tympanic membrane Completed Not Available [facility] 3 06:43:30 Headache 67644407 Completed Not Available [facility] 3 06:43:30 Dyspnea 055491265 Completed Not Available [facility] 3 06:43:30 Edema 453254162 Completed Not Available [facility] 3 06:43:30 Loss of hair 576294976 Active 2021 Not Available [facility] 3 06:43:30 Polyuria 60240963 Completed Not Available [facility] 3 06:43:30 Finding related to coordinat ion / incoordin ation 365257876 Active Not Available [facility] 3 06:43:30 Vitamin D deficienc y 18983220 Active 2021 Not Available [facility] 3 06:43:31 Iron deficienc y 26028726 Active 2021 Not Available [facility] 3 06:43:31 Depressiv e disorder 84237865 Active Not Available [facility] 3 06:43:31 Multiple joint pain 93303819 Completed Not Available [facility] 3 06:43:31 Seasonal allergic rhinitis 952268062 Completed Not Available [facility] 3 06:43:31 Arthritis 3517628 Completed Not Available [facility] 3 06:43:31 Hypertens natalia disorder 74258930 Active Not Available [facility] 3 06:43:31 Obesity 074714703 Active Not Available [facility] 3 06:43:32 Acute urinary tract infection 630448565 Completed Not Available [facility] 3 06:43:32 Anxiety 30202573 Active Not Available [facility] 3 06:43:32 Cough 17058947 Completed Not Available [facility] 3 06:43:32 Upper respirato ry infection 28083591 Completed Not Available [facility] 3 06:43:32 Female hirsutism 67533701 Active 2021 Not Available [facility] 3 06:43:32 Muscle pain 50584906 Completed Not Available [facility] 3 06:43:33 Acid reflux 452320272 Active Not Available [facility] 3 06:43:33 Rheumatoi d arthritis 69184116 Active Not Available [facility] 3 06:43:33 Varicose veins of lower extremity 62297211 Active Not Available [facility] 3 06:43:33 Sleep apnea 47466263 Active Not Available [facility] 3 06:43:33 Posterior rhinorrhe a 02812241 Active Not Available [facility] 3 06:43:33 Fatigue 46853446 Active Not Available [facility] 3 06:43:34 Pulmonary emphysema 76297749 Active Not Available [facility] 3 06:43:34 Weight gain 0046915 Active 2021 Not Available [facility] 3 06:43:34 Psoriasis 8217875 Active Not Available [facility] 3 06:43:34 Pain of bilateral knee joints 99391908096 4104 Active 2022 Ira Francisco null, [place] [facility] 3 10:56:28 Pain in right hand 05010493326 9109 Active 2022 Lashawn Ren RMA null, [place] [facility] 3 16:32:39 Bilateral osteoarth ritis of knees 28909651401 9107 Active 2023 Lashawn Ren, RMA null, [place] - [facility] 4 10:42:46 Problem Notes None recorded. Procedures Surgical History Date Name Laterality Status Provider Name and Address Organization Details Recorded Time arthroscopy of knee with meniscus repair completed [facility] 07/01/2023 10:54:51 Cyst Removal completed [facility] 07/01/2023 10:55:20 Imaging Results Imaging Date Name Status LastModified by Organiz ation Details LastModified Time 09/16/2022 US, thyroid completed [id number] 3 6 [facility] [address], [place], [address], 11/05/2022 06:48:18 10/02/2022 fine needle aspiration, ultrasound guided, thyroid (PROC) completed [id number] [facility] [address], [place], [address], 11/05/2022 06:48:18 Procedure Notes None recorded. Medical Equipment None Reported. Allergies Allergen ID Allergen Name Allergen Category Reaction Reaction Severity Criticality Documentation Date Start Date Code Code System Note Provider Name and Address Organization Details Recorded Time 65356 weed pollen environme nt,medica tion Not available Not available low 04/09/2023 64720 UNK Meghan mccarty, [facility] 3 12:11:26 74437 Canis lupus familiari s extract [facility] nt Not available Not available low 04/09/2023 30503 4 [facility] 3 12:11:34 16855 cat dander [facility] nt Not available Not available [facility] 04/09/2023 84183 UNTerence Cheng [facility] 3 12:11:40 Medications Name Sig Start Date Stop Date Status Note LastModified by Organization Details LastModified Time prednison e 10 mg tablet Take by oral route with food. Day 1-4: 60 mg, Day 5-6: 50 mg, Day 7-8: 40 mg, Day 9-10: 30 mg, Day 11-12: 20 mg, Day 13-15: 10 mg. active Not Available Not Available No t Available nabumeton e 750 mg tablet TAKE 1 TABLET BY MOUTH TWICE A DAY 07/20 completed Not Available Not Available Not Available cetirizin e 10 mg tablet Take 1 tablet every day by oral route. 2021 active Not Available Not Available Not Avai lable oxybutyni n chloride ER 10 mg tablet,ex tended release 24 hr Take 1 tablet every day by oral route for 90 days. 03/21 completed pt does not believe it is working. Not Available Not Available Not Available azithromy ok 250 mg tablet TAKE 2 TABLETS BY MOUTH TODAY, THEN TAKE 1 TABLET DAILY FOR 4 DAYS active Not Available Not Available No t Available ibuprofen 800 mg tablet 10/01 completed Not Available Not Available Not Available Coricidin HBP Cough and Cold 4 mg-30 mg tablet Take 1 tablet every 6 hours by oral route as directed for 15 days. 12/14 completed Not Available Not Available Not Available tolterodi ne ER 4 mg capsule,e xtended release 24 hr TAKE 1 CAPSULE( S) EVERY DAY BY ORAL ROUTE DIRECTED FOR 30 DAYS. active Not Available Not Available No t Available meloxicam 15 mg tablet active Not Available Not Available Not Available Tubersol 5 tub. unit/0.1 mL intraderm al injection solution active [facility] [place] [address]72 Not Available Not Available Not Available sertralin e 100 mg tablet active Not Available Not Available Not Available prednison e 5 mg tablet TAKE 3 TABS DAILY FOR 7 DAYS, THEN 2 TABS DAILY FOR 7 DAYS THEN 1 TAB DAILY FOR 7 DAYS active Not Available Not Available No t Available phentermi ne 15 mg capsule TAKE 1 CAPSULE BY MOUTH ONCE DAILY 2 HOURS AFTER BREAKFAS T active Not Available Not Available No t Available phentermi ne 37.5 mg tablet TAKE 1 TABLET BY MOUTH ONCE DAILY 07/01 completed Not Available Not Available Not Available melatonin 3 mg tablet Take by oral route. active Not Available Not Available No t Available ciproflox acin 500 mg tablet TAKE 1 TABLET BY MOUTH 2 TIMES A DAY FOR 5 DAYS active Not Available Not Available No t Available sulfameth oxazole 800 mg-trimet hoprim 160 mg tablet active Not Available Not Available Not Available Kenalog 40 mg/mL suspensio n for injection Take 1 mL every day by injectio n route. 05/25 completed Not Available Not Available Not Available meloxicam 7.5 mg tablet active Not Available Not Available Not Available amoxicill in 875 mg tablet 10/01 completed Not Available Not Available Not Available methotrex ate sodium 2.5 mg tablet TAKE 7 TABLET (2.5MG) BY ORAL ROUTE ONCE WEEKLY active Not Available Not Available No t Available imiquimod 5 % topical cream packet 04/09 completed Not Available Not Available Not Available dexametha sone 1 mg tablet Take 1 tablet as needed by oral route for 1 day. 12/10 completed Not Available Not Available Not Available buspirone 10 mg tablet TAKE 1 TABLET BY MOUTH THREE TIMES DAILY NEEDED FOR ANXIETY 10/01 completed Not Available Not Available Not Available clotrimaz ole-betam ethasone 1 %-0.05 % topical cream 04/09 completed Not Available Not Available Not Available lisinopri l 10 mg tablet Take 1 tablet every day by oral route as directed for 30 days. active Not Available Not Available No t Available clobetaso l 0.05 % topical foam 12/10 completed Not Available Not Available Not Available oxybutyni n chloride ER 5 mg tablet,ex tended release 24 hr active Not Available Not Available Not Available sertralin e 25 mg tablet take one tablet daily active Not Available Not Available No t Available omeprazol e 20 mg capsule,d elayed release TAKE ONE CAPSULE BY MOUTH EVERY DAY 12/10 completed Not Available Not Available Not Available diclofena c sodium 75 mg tablet,de layed release TAKE 1 TABLET BY MOUTH TWICE A DAY active Not Available Not Available No t Available folic acid 1 mg tablet TAKE 1 TABLET BY MOUTH EVERY DAY 12/23 completed Not Available Not Available Not Available etodolac 400 mg tablet TAKE 1 TABLET BY ORAL ROUTE 2 TIMES EVERY DAY WITH FOOD active Not Available Not Available No t Available Cheratuss in AC 10 mg-100 mg/5 mL oral liquid TAKE 5ML EVERY 4-6 HOURS BY MOUTH NEEDED. active Not Available Not Available No t Available ibuprofen 600 mg tablet 07/01 completed Not Available Not Available Not Available cefprozil 250 mg tablet active Not Available Not Available Not Available methylpre dnisolone 4 mg tablets in a dose pack Take as directed on pack. Directio ns for Medrol Dosepak: 1st day: 2 tablets before breakfas t, 1 tablet after lunch and after supper, and 2 tablets at bedtime. 2nd day: 1 tablet before breakfas t. 1 tablet after lunch and after supper, and 2 tablets at bedtime. 3rd day: 1 tablet before breakfas t, after lunch, after supper and at bedtime. 4th day: 1 tablet before breakfas t, after lunch and at bedtime. 5th day: 1 tablet before breakfas t and at bedtime. 6th day: 1 tablet before breakfas t 10/01 completed Not Available Not Available Not Available celecoxib 100 mg capsule Take 1 capsule twice a day by oral route for 30 days. 10/01 completed Not Available Not Available Not Available ketoconaz ole 2 % topical cream active Not Available Not Available Not Available oxybutyni n chloride 5 mg tablet Take 1 tablet every day by oral route. 2012 active Not Available Not Available Not Avai lable clobetaso l 0.05 % scalp solution active Not Available Not Available Not Available fluticaso ne propionat e 50 mcg/actua tion nasal spray,jose pension USE 2 SPRAYS BY INTRANAS AL ROUTE IN THE MORNING DAILY FOR 30 DAYS. 10/01 completed Not Available Not Available Not Available sertralin e 50 mg tablet TAKE 1 TABLET DAILY active Not Available Not Available No t Available amoxicill in 875 mg-potass ium clavulana te 125 mg tablet TAKE 1 TABLET(S ) EVERY 12 HOURS BY ORAL ROUTE DIRECTED FOR 10 DAYS. active Not Available Not Available No t Available nabumeton e 500 mg tablet 10/01 completed Not Available Not Available Not Available calcipotr iene 0.005 % topical ointment 12/10 completed Not Available Not Available Not Available oxycodone 5 mg tablet active Not Available Not Available Not Available escitalop rizwan 10 mg tablet 10/01 completed Not Available Not Available Not Available Humira 40 mg/0.8 mL subcutane ous syringe kit Inject by subcutan eous route. 80 mg SC x1 on wk 0, then 40 mg SC q2wk on wk 1 active Not Available Not Available No t Available hydrocort isone butyrate- emollient 0.1 % topical cream APPLY 1 APPLICAT ION(S) 3 TIMES A DAY BY TOPICAL ROUTE FOR 30 DAYS. active Not Available Not Available No t Available Mucinex DM 30 mg-600 mg tablet,ex tended release 12 hr Take 1 tablet every 12 hours by oral route as directed for 15 days. active Not Available Not Available No t Available Clobex 0.05 % topical spray 12/10 completed Not Available Not Available Not Available magnesium active Not Available Not Keira ilable Not Available Vitamin C 2021 active Not Available Not Available Not Avai lable iron 2021 active Not Available Not Available Not Avai lable Vitamin D 2021 active Not Available Not Available Not Avai lable Wellbutri n 2012 active pt took herself off of it a couple days ago doesn't know strength Not Available Not Available Not Available Icy Hot active Not Available Not Avail able Not Available ProAir HFA 90 mcg/actua tion aerosol inhaler INHALE 2 PUFF(S) EVERY 4 HOURS BY INHALATI ON ROUTE DIRECTED FOR 30 DAYS. active Not Available Not Available No t Available hydrochlo rothiazid e 12.5 mg tablet TAKE ONE CAPSULE BY MOUTH ONCE DAILY DIRECTED 10/01 completed Not Available Not Available Not Available azelastin e 205.5 mcg (0.15 %) nasal spray USE 1 SPRAY INTO EACH NOSTRIL TWICE A DAY 04/09 completed Not Available Not Available Not Available Vimovo 500 mg-20 mg tablet,im mediate and delay release Take 1 tablet twice a day by oral route as directed for 90 days. active Not Available Not Available No t Available Suprep Bowel Prep Kit 17.5 gram-3.13 gram-1.6 gram oral solution 05/25 completed Not Available Not Available Not Available Chantix Continuin g Month Box 2012 active Pt stopped on own a couple days ago Not Available Not Available Not Available Myrbetriq 25 mg tablet,ex tended release TAKE 1 TABLET DAILY IN THE MORNING active Not Available Not Available No t Available Multi Vitamin 2021 active Not Available Not Available Not Avai lable Fluzone 8768-9438 45 mcg (15 mcg x 3)/0.5 mL intramusc ular suspensio n TO BE ADMINIST ERED BY [facility] FOR IMMUNIZA TION active Not Available Not Available No t Available Zorvolex 35 mg capsule Take 1 capsule 3 times a day by oral route as directed for 90 days. active Not Available Not Available No t Available Otezla 30 mg tablet 12/23 completed Not Available Not Available Not Available Otezla active Not Available Not Availa ble Not Available Afluria 9675-2297 (PF) 45 mcg (15 mcg x 3)/0.5 mL intramusc ular syringe USE DIRECTED BY PHARMACI ST 12/01 completed Not Available Not Available Not Available Contrave 8 mg-90 mg tablet,ex tended release 1 tab PO qam x1wk, then 1 tab PO bid x1wk, then 2 tabs PO qam and 1 tab PO qpm x1wk, then Take 2 tablet(s ) 2 TIMES A DAY by oral route. active Not Available Not Available No t Available Cosentyx Pen 300 mg/2 Pens (150 mg/mL) subcutane ous 10/01 completed Not Available Not Available Not Available Enstilar 0.005 %-0.064 % topical foam 12/23 completed Not Available Not Available Not Available Fluvirin (PF) 45 mcg(15 mcg x3)/0.5 mL intramusc ular syringe ADM 0.5ML IM UTD active Not Available Not Available No t Available Duobrii 0.01 %-0.045 % lotion active Not Available Not Available Not Available Wegovy 0.25 mg/0.5 mL subcutane ous pen injector Inject 0.25 mg every week by subcutan eous route with meals for 28 days. 08/19 completed Not Available Not Available Not Available Vtama 1 % topical cream active Not Available Not Available Not Available Zoryve 0.3 % topical cream active Not Available Not Available Not Available B12 1,000 mcg-methy ltetrahyd rofolate 680 mcg DFE-B6 1.5 mg chew tablet Take by oral route. active Not Available Not Available No t Available Vitals Date Recorded Body mass index (BMI) Body height Oxygen saturation Oxygen saturation in Arterial blood by Pulse oximetry Heart rate Body temperature Body weight Systolic blood pressure Diastolic blood pressure Provider Name and Address Organization Details Last Updated DateTime 2 42.3 kg/m2 170.18 cm 98 % 98 % 78 /min 97.2 [degF] 814058. 94 g 110 mm[Hg] 80 mm[Hg] Not Available [facility] 3 06:40:53 Date Recorded Body height Body mass index (BMI) Body weight Heart rate Systolic blood pressure Diastolic blood pressure Provider Name and Address Organization Details Last Updated DateTime 3 170.18 cm 40.9 kg/m2 698421. 33 g 97 /min 114 mm[Hg] 84 mm[Hg] Meghan Prosper [facility] 3 12:10:04 Date Recorded Body height Body mass index (BMI) Body weight Provider Name and Address Organization Details Last Updated DateTime 07/01/2023 168.91 cm 40.2 kg/m2 420212.43 g Ira Devlinmons [facility]elli 07/01/2023 11:22:23 Date Recorded Body height Provider Name an d Address Organization Details Last Updated DateTime 07/20/2023 168.91 cm Lashawn Ren Keven [facility] 07/20/2023 16:32:10 Date Recorded Body height Provider Name an d Address Organization Details Last Updated DateTime 09/30/2023 168.91 cm Lashawn Ren Keven [employer] 09/30/2023 10:42:19 Social History Question Answer Notes LastModified by Organizat ion Details LastModified Time Tobacco Smoking Status Former Smoker quit 10 yrs Not Available [facility] 11/05/2022 06:39:00 What Is Your Level Of Alcohol Consumption? Occasional [id number] Information not available 11/05/2022 What Is Your Level Of Caffeine Consumption? Moderate [id number] [id number] Information not available 11/05/2022 In The 14 Days Before Symptom Onset, Have You Had Close Contact With A Laboratory-confir med COVID-19 While That Case Was Ill? No MIGRATION.[id number] Information not available 11/05/2022 In The 14 Days Before Symptom Onset, Have You Had Close Contact With A Person Who Is Under Investigation For COVID-19 While That Person Was Ill? No [id number].[id number] Information not available 11/05/2022 What Type Of Diet Are You Following? REGULAR [id number] Information not available 11/05/2022 What Is Your Relationship Status? [id number].[id number] Information not available 11/05/2022 Do You Use Any Illicit Or Recreational Drugs? No [id number].29103 [id number] Information not available 11/05/2022 Have You Recently Traveled Abroad? No [id number].60820 [id number] Information not available 11/05/2022 Do You Have Any Dietary Restrictions? No MIGRATION.42674 [id number] Information not available 11/05/2022 Sex: Female Functional Status None recorded. Mental Status None recorded. Family History Relationship Description Onset Age of this Age Resolved Age Notes LastModified by Organization Details LastModified Time Mother Hypertensive disorder [id number] Not available 11/05/2022 06:39:34 Sister Lupus erythematosu s [id number] [id number] Not available 11/05/2022 06:39:34 Paternal Grandmother Family history of malignant neoplasm [id number] Not available 11/05/2022 06:39:34 Father Family history of malignant neoplasm [id number] Not available 11/05/2022 06:39:34 Medical History Condition Response SKIN PROBLEMS Y CANCER: SPECIFY Y ARTHRITIS Y USE OF NSAIDS Y OBESITY Y ANEMIA/BLOOD DISORDER Y Gynecological HistoryNo gynecological history recorded. Obstetrics History GPAL:G 0 P 0 0 0 0 Immunizations Vaccine Type Date Status Note Provider Nam e and Address Organization Details Recorded Time Influenza, high-dose, trivalent, PF 4 completed Not Available [facility] 11/05/2022 06:47:59 Influenza, split virus, trivalent, preservative 3 completed Not Available [facility] 11/05/2022 06:47:59 Tdap 1 completed Not Available [facility] 11/05/2022 06:47:59 Past Encounters Encounter ID Performer Location Encounter Start Date Encounter Closed Date Diagnosis/Indication Diagnosis SNOMED-CT Code Diagnosis ICD10 Code Diagnosis Note [id number] [facility] [address] [place] [address] 10/08/2021 00:00:00 10/08/2021 13:30:07 [id number] [facility] [address] [place] [address] 12/10/2021 00:00:00 12/10/2021 17:49:28 [id number] [facility] [address] [place] [address] 02/28/2022 00:00:00 02/28/2022 17:36:51 [id number] [facility] [address] [place] [address] 08/19/2022 00:00:00 08/19/2022 10:43:30 [id number] Natty Tan MD [facility] [address] [place] [address] 04/09/2023 11:50:18 04/09/2023 12:36:16 Educated about weight management 704779835 Z71.3 Recommende d she adhere to at least 1400 calorie per day intake with multiple small 300-400 calorie meals (4-5 small meals per day) on sedentary days up to 1600 calories on days she is able to undergo moderate level activity at least 30-40 minutes with 20 minutes of that time at 70% of her target heart rate in order to reach total caloric output and assist in weight loss. She is motivated and willing to go to gym daily and discussed cutting out GMOs along with preservati ves and focusing on fruits, veggies, unprocesse d beans and nuts along with meats for the bulk of her diet. Provided informatio n on [facility] [employer] [employer] [facility] to help optimize her protein and carb intake and to minimize inflammati on. She has informatio n on AIP to minimize gluten/inez ry that could trigger inflammati on as she has significan t OA requiring knee replacemen ts. Thyroid nodule 197107494 E04.1 Recommende d patient repeat her thyroid u/s in September 2023 to monitor for any change in size or character of her nodule. Spent up to 25 minutes preparing to see the patient (eg, review of tests), obtaining and/or reviewing separately obtained history, performing a medically appropriat e examinatio n and evaluation , counseling and educating the patient, ordering medication s, tests, along with documentin g clinical informatio n in the electronic health record, independen tly interpreti ng results and communicat ing results to the patient. Patient can be followed by PCP - she/he is aware of my resignatio n and last day of June 19. If needed his/her PCP can refer patient to another endocrinol ogist in the area. All questions /concerns answered and refills necessary at visit today. [id number] Ilia Farley MD [facility] [address] [place] [address] 07/01/2023 10:12:10 07/13/2023 09:53:09 Pain of bilateral knee joints 7442912981 85709 M25.561 M25.745 [id number] Ilia Farley MD [facility] [address] [place] [address] 07/20/2023 16:20:43 07/28/2023 10:04:09 Pain in right hand 8110900873 81526 M79.725 [id number] RANDY Nicholson [facility] [address] [place] [address] 09/30/2023 10:32:29 10/01/2023 13:45:53 Bilateral osteoarthritis of knees 7958027520 78162 M17.0 Z79.1 Health Concerns Section Related Observation LastModified by Organization Detai ls LastModified Time None Recorded Concern Status LastModified by Organization Details LastModified Time None Recorded Advance Directives Directive None Recorded Payers Encounter Date Sequence Insurance Name Policy Number Policy Villalpando Covered Member ID Villalpando Member ID Guarantor Name 04/09/2023 1 [place] - DOS PRIOR TO 2024 - [employer] () David Flyte [id number] Kishan Flyte 07/01/2023 1 [place] - DOS PRIOR TO 2024 - [employer] - [place] ( - PPO) Kishan Flyte [id number] Kishan Flyte 07/20/2023 1 [place] - DOS PRIOR TO 2024 - [employer] - [place] ( - PPO) Kishan Flyte [id number] Kishan Flyte 09/30/2023 1 [place] - DOS PRIOR TO 2024 - [employer] - [place] ( - PPO) Kishan Flyte [id number] Kishan Flyte Notes Date Note Type Note Provider Name and Address Organization Details Recorded Time 3 text/html 57 yo female comes in for follow up in management of thyroid nodule, vit D def, iron def and and weight management last seen in Aug at that time we continued phentermine for weight loss. thyroid u/s from Sep 2022 revealed 2.5 cm dominant right thyroid nodulebiopsy was nondiagnostic at that time She has lost 30 pounds total in the past year. She is needing to have bilateral knee replacement. Her orthopedic surgeon wants her close to 200 pounds. She will have eggs and high protein breads/keto bread for breakfast. She may miss breakfast and not eat until closer to lunch depending on work.Lunch consists of a small snack-bananas and dinner will consist of meat and veggie. She doesn't really go to the gym regularly due to her OA. follows rheumatology for management. DST normal from 10/29 labs from 03/23/23:TSH of 2.22 uIU/mlFT4 of 1.1 ng/dLvit D 42 ng/mLFT3 of 2.9 pg?MLTPO negglucose 87 mg/dLCr normalLFT normaliron sat 18% Natty Tan MD [address] [facility] [facility] [address], [place], [address], [facility] [employer] [facility] 04/09/2023 12:39:46 3 text/html Patient is a 58-year-old female referred by Dr. Shen for evaluation of her bilateral knee pain. She has had pain for many years. She had gel shots in January which did help and prior to that she had had cortisone shots which did help. Her right knee is a little bit worse. She rates her pain in the right knee it 9/10 in left knee 7/10. She has been taking nabumetone 750 mg twice daily for the last 3 months. This was started by her hydraulic mechanic. She does not feel it was very helpful. She did have a workup for inflammatory arthritis in the blood tests suggested this was osteoarthritis and not inflammatory arthritis. She does have diffuse patchy psoriasis changes with numerous mild patches there are small but numerous covering both legs over her shins and she does have 1 patch over the left tibial tubercle. She has had prior arthroscopic meniscus trimming in the left knee 6 years ago by another orthopedic surgeon. X-rays were reviewed from 10/23/2022 and these included AP and PA flexion weight-bearing views sunrise and lateral views. On the PA flexion views she has narrowing of the medial compartment joint space in the left knee to 1 mm and in the right knee to 1.5 mm. Prominent hypertrophic spurring is present along the medial joint line the left somewhat smaller spurring on right. Lateral compartments are preserved as are the patellofemoral compartments. Ilia Farley MD [address] [place] [address], [facility] [address], [place], [address], [facility] [employer] [facility] 07/12/2023 19:02:05 3 text/html patient is a 58-year-old female referred by Dr. Shen for evaluation of her right ring finger. She has been having episodes of triggering for about the last 2 months. When she will make a fist the finger gets stuck and she needs to use her left hand to straight it. It has been doing a little bit better. She does have history of symptoms of carpal tunnel syndrome off and on for several years. She has occasional nocturnal symptoms the last time about 2 weeks ago. When she has flare-ups she will wear the night splints and then improves. Diclofenac as help her knees a great deal she started this 2 weeks ago. The ring finger is not as painful lately and she has not been noticing the triggering but still has some tenderness at the A1 ale. Patient had x-rays of the right hand three views at [facility] on 03/27/2023. I reviewed these x-rays. These show scattered degenerative changes most pronounced at the index finger D IP joint which she has moderate hypertrophic spurring, mild thumb metacarpal phalangeal joint arthritis, mild subluxation with moderate joint space narrowing of the thumb metacarpal trapezial articulation. The ring finger interphalangeal joints and metacarpophalangeal joint look normal. Ilia Farley MD [address] [place] [address], [place] [address], [place], [address], [facility] 07/26/2023 17:59:01 OBGyn Episode No OBEpisode recorded.
--- OUTSIDE RECORDS SUMMARY | 2024-10-06 01:19 | XMS_ITS | Referral Summary ---
Author Organization [facility] Address [address] [facility] [place] [address] Care Team Providers Care Household Manager Name Role Phone Precious Mcmahan MD Primary Care Provider [phone] Source Comments [facility],non-owned Affiliates and Associated Physician Practices is amultiple site organization consisting of ambulatory clinics and hospital sitesin [place], [place], [place] and [place]. This disclosure is being madepursuant to the Care Everywhere program and may not contain all information available regarding this patient. Last updated 18.[facility] [employer] Allergies Active Allergy Reactions Criticality Noted Date Comments Cat Hair Extract Unknown,Other Low 06/09/2023 Ciprofloxacin Urticaria Medium 02/05/2024 Dog Epithelium Unknown,Other Low 06/09/2023 Molds & Smuts Other 12/09/2023 Penicillins Nausea and/or Vomiting 10/09/2023 Pollen Extract Unknown,Other Low 06/09/2023 Seasonal Rhinitis 05/08/2020 Sulfamethoxazole W-Trimethoprim Urticaria Medium 02/05/2024 Medications * Be aware that medications may not be up to date on this document. Alwaysverify current medications with the patient. Medication Sig Dispensed Refills Start Date End Date Status Apremilast (Otezla) 30 MG Take 1 (one) tablet by mouth 2 times daily 06/07/2021 Active clobetasol (Temovate) 0.05 % solution Apply to affected area as needed 07/07/2023 Active diclofenac sodium EC (Voltaren) 75 MG tablet Take 1 (one) tablet by mouth 2 times daily 11/17/2023 Active diphenhydrAMINE (Benadryl) 50 MG capsule Take 25 mg by mouth every 6 hours as needed Active ferrous sulfate 325 (65 FE) MG tablet Take 1 (one) tablet by mouth once daily Active Halobetasol Prop-Tazarotene (Duobrii) 0.01-0.045 % LOTN Apply 1 g to affected area as needed Active imiquimod (Aldara) 5 % cream Apply 1 g to affected area as needed 01/27/2023 Active melatonin 3 MG tablet Take 1 (one) tablet by mouth at bedtime Active oxyBUTYnin CR 24hr (Ditropan-XL) 5 MG tablet Take 1 (one) tablet by mouth once daily 10/19/2023 Active tirzepatide (Mounjaro) 2.5 MG/0.5ML injection Inject 12.5 (twelve and one-half) mg subcutaneously every 7 days 11/22/2023 Active sertraline (Zoloft) 100 MG tablet Take 1 (one) tablet by mouth once daily 10/19/2023 Active MULTIPLE VITAMIN PO Take 1 tablet by mouth once daily Active cyanocobalamin (Vitamin B-12) 1000 MCG tablet Take 1 (one) tablet by mouth once daily Active Cholecalciferol (Vitamin D3) 1.25 MG (71306 UT) Take by mouth once daily Active ascorbic acid (Vitamin C) 250 MG tablet Take 4 (four) tablets by mouth once daily Active MAGNESIUM CITRATE PO Take 250 mg by mouth once daily Active azelastine (Astelin) 0.1 % nasal spray [place] 1 (one) spray into each nostril 2 times daily Active fluticasone propionate (Flonase) 50 MCG/ACT nasal spray [place] 2 (two) sprays into each nostril once daily Active acetaminophen (Tylenol) 325 MG tablet Take 2 (two) tablets by mouth every 6 hours as needed for Fever or Pain Maximum allowable Acetaminophen amount = 4 Grams (4000 mg) / 24 hours. 30 tablet 1 12/31/2023 Active oxyCODONE, immediate release, (Roxicodone) 5 MG tabletIndications :Thyroid nodule Take 1 (one) tablet by mouth every 6 hours as needed for Pain 12 tablet 12/31/2023 Active Additional Information Patient not taking.Reported on 01/22/2024 predniSONE (Deltasone) 10 MG tablet Take 1 (one) tablet by mouth once daily 01/13/2024 Active Active Problems Problem Noted Date Diagnosed Date Laryngopharyngeal reflux (LPR) 02/07/2024 Immunizations Name Administration Dates Next Due INFLUENZA VACCINE, TRIV. (AF LURIA, FLUZONE TRIVALENT; 6MO+) (IIV3) 07/14/2017,07/10/2013 FLU VACCINE TRI IIV3 SPLIT PF IM (FLUVIRIN) 05/09 INFLUENZA VACCINE 06/03/2017 INFLUENZA VACCINE, HIGH-DOSE , QUADR. (FLUZONE HIGH-DOSE QUADRIVALENT; 65Y+), 0.7 ML (HD-IIV4) 06/04/2014 INFLUENZA VACCINE, QUADR. (F LUZONE; FLULAVAL; FLUARIX; AFLURIA QUADRIVALENT; 6MO+), 0.5 ML (IIV4) 07/05/2021 TDAP (7yrs+) 05/04/2021,07/23/2011 Zoster Hzv Vacc Recombinant Inj Im 04/12/2022, Social History Tobacco Use Types Packs/Day Years Used Date Smoking Tobacco: Never Smokeless Tobacco: Never Tobacco Cessation:Counseling Given: Not Answered Alcohol Use Standard Drinks/Week Comments Yes 0 (1 standard drink = 0.6 oz pur e alcohol) rarely Sex and Gender Information Value Date Recorded Sex Assigned at Not on file Gender Identity Not on file Sexual Orientation Not on file Last Filed Vital Signs Vital Sign Reading Time Taken Comments Blood Pressure 112/70 02/05/2024 3:23 PM CDT Pulse 89 02/05/2024 3:23 PM CDT Temperature 36.4 ??C (97.6 ??F) 12/31/2023 11:09 AM C DT Respiratory Rate 10 12/31/2023 12:15 PM CDT Oxygen Saturation 97% 12/31/2023 12:15 PM CDT Inhaled Oxygen Concentration - - Weight 108.9 kg (240 lb) 02/05/2024 3:23 PM CDT Height 170.2 cm (5' 7 ) 02/05/2024 3:23 PM CDT Body Mass Index 37.59 02/05/2024 3:23 PM CDT Functional Status Functional Status Response Date of Assess ment Is person deaf or have serious hearing difficult y? No 12/31/2023 Is person blind or have serious difficulty seein g? No 12/31/2023 Does person have serious dif ficulty walking/climbing stairs? No 12/31/2023 Does person have difficulty dressing/bathing? No 12/31/2023 Does person have difficulty doing errands alone? No 12/31/2023 Cognitive Status Response Date of Assessm ent Does person have difficulty concentrating/remembering/making decisions? No 12/31/2023 Plan of Treatment Not on file Procedures Procedure Name Priority Date/Time Associated Diagnosis Comments BASIC METABOLIC PANEL (CALCIUM TOTAL) Routine 12/17/2023 9:54 AM CDT Pre-op evaluation from Last 3 Months or Most Recently Relevant to Health Maintenance Results * (ABNORMAL) BASIC METABOLIC PANEL (CALCIUM TOTAL) (12/17/2023 9:54 AM CDT) BUN 18 7 - 26 mg/dL 12/17/2023 11:30 AM [facility] Creatinine 0.80 0.56 - 0.96 mg/dL 12/17/2023 11:30 AM [facility] Sodium 144 136 - 145 mmol/L 12/17/2023 11:30 AM [facility] Potassium 4.3 3.5 - 4.5 mmol/L 12/17/2023 11:30 AM [facility] Chloride 107 98 - 107 mmol/L 12/17/2023 11:30 AM [facility] CO2 26 22 - 29 mmol/L 12/17/2023 11:30 AM [facility] Glucose 94 70 - 115 mg/dL 12/17/2023 11:30 AM [facility] Calcium 9.8 8.4 - 10.2 mg/dL 12/17/2023 11:30 AM [facility] Anion Gap 11 6 - 16 12/17/2023 11:30 AM [facility] BUN/Creatinine Ratio 23 7 - 23 12/17/2023 11:30 AM [facility] Osmolality Calculated 300(H) 275 - 295 mOsm/kg 12/17/2023 11:30 AM CDT [facility] eGFR by CKD-EPI 86(L) >=90 mL/min/1.7 3 m2 12/17/2023 11:30 AM CDT [facility] Blood BLOOD SPECIMEN / Unknown Lab Venipuncture / Unknown 12/17/2023 9:54 AM CDT 12/17/2023 10:17 AM CDT Stacey August[facility] [employer] [facility] - [facility]KAN[facility] ORDERABLES Performing Organization Address City/State/[facility] Co de Phone Number [facility] [address] [place] [address], [facility] [phone] from Last 3 Months or Most Recently Relevant to Health Maintenance Care Teams Household Manager Relationship Specialty Start Date End Date Precious Mcmahan MD [address] [place] [address] PCP - General Family Medicine 12/09/23
--- OUTSIDE RECORDS SUMMARY | 2024-10-06 01:19 | XMS_ITS | Encounter Summary ---
Author Organization [facility] Address [address] [place] [address] Phone Care Team Providers Care Outboard Motor Assembler Name Role Phone Precious Mcmahan MD Primary Care Provider [phone] Unknown, Notinfile Unavailable Unavailable Encounter Details Date Type Department Care Team (Late st Contact Info) Description 12/04/2017 Orders Only [facility] ProviderSandra MD [address] [place] [id number] Social History Tobacco Use Types Packs/Day Years Used Date Smoking Tobacco: Former Smokeless Tobacco: Never Alcohol Use Standard Drinks/Week Comments No 0 (1 standard drink = 0.6 oz pur e alcohol) Comments Unknown Sex and Gender Information Value Date Recorded Sex Assigned at Not on file Legal Sex Female 3:48 AM MOTHER BABY RN Gender Identity Not on file Sexual Orientation Not on file documented as of this encounter Plan of Treatment Not on file documented as of this encounter Procedures Procedure Name Priority Date/Time Associated Diagnosis Comments DISCHARGE LABORATORY CUMULATIVE REPORT 12/04/2017 12:00 AM CDT documented in this encounter Results * DISCHARGE LABORATORY CUMULATIVE REPORT (12/04/2017 12:00 AM CDT) Narrative 12/04/2017 12:00 AM CDT Ordered by an unspecified provider. Historical Provider LAB BLOOD ORDERABLES Michelle l Result documented in this encounter Visit Diagnoses Not on filedocumented in this encounter Care Teams Outboard Motor Assembler Relationship Specialty Start Date End Date Precious Mcmahan MD PCP - General Family Medicine 09/03/17 Unknown, Notinfile Referring Physician 10/23/20 documented as of this encounter
--- OUTSIDE RECORDS SUMMARY | 2024-10-06 01:19 | XMS_ITS ---
Author Organization [facility] Address [address] [address] Care Team Providers Care Client Consultant Name Role Phone Precious Mcmahan MD Primary Care Provider TRACEE Kaye Unavailable [phone] REASON FOR VISIT 2-3 Month follow up Encounters Encounter Location Date Provider Diagnosis [address] [id number] 07/04/2024 TRACEE CALDERÓN Plan Of Treatment Next Appt Details Provider Name:TRACEE BARTON, 10/31/2024 09:45:00 AM, [address] [place] [address], [phone], Progress Notes * JAZSofia SAENZchikaDOB:1965 ( 59 yo F)Acc No.[id number]:07/04/2024 Vascular f/u Patient:?JAZLETTY Kishan Provider:?Tracee Calderón MD :1965???Age:59 Y???Sex:Female D ate:07/04/2024 Address:[address], [facility] Pcp:Precious Mcmahan MD Subjective: * Chief Complaints: * ???1. 2-3 Month follow up. * Medical History:? Objective: * Vitals:? Assessment: Plan: * Treatment: * * Electronic signature of YESSENIA CALDERÓN MD on 10/06/2024 at 01:18 AM HAND WOODWORKING SANDER Sign off status: Pending * Provider:?Tracee Calderón MD Date:?1 Generated for Reji brown/Shabbir/Gloria on:?10/06/2024 01:18 AM HAND WOODWORKING SANDER
--- OUTSIDE RECORDS SUMMARY | 2024-10-06 01:19 | XMS_ITS | Patient Health Summary ---
Author Organization [facility] Address [address] [place] [address] Care Team Providers Care Absence Management Consultant Name Role Phone Precious Mcmahan MD Primary Care Provider [phone] Note [address] [facility],non-owned Affiliates and Associated Physician Practices is amultiple site organization consisting of ambulatory clinics and hospital sitesin [place], [place], [place] and [place]. This disclosure is being madepursuant to the Care Everywhere program and may not contain all information available regarding this patient. Last updated 18.[facility] Allergies * Cat Hair Extract(Unknown,Other) -Low Criticality * Ciprofloxacin(Urticaria) -Medium Criticality * Dog Epithelium(Unknown,Other) -Low Criticality * Molds & Smuts(Other) * Penicillins(Nausea and/or Vomiting) * Pollen Extract(Unknown,Other) -Low Criticality * Seasonal(Rhinitis) * Sulfamethoxazole W-Trimethoprim(Urticaria) -Medium Criticality Medications * Be aware that medications may not be up to date on this document. Alwaysverify current medications with the patient. * Apremilast (Otezla) 30 MG(Started 06/07/2021) Take 1 (one) tablet by mouth 2 times daily * clobetasol (Temovate) 0.05 % solution(Started 07/07/2023) Apply to affected area as needed * diclofenac sodium EC (Voltaren) 75 MG tablet(Started 11/17/2023) Take 1 (one) tablet by mouth 2 times daily * diphenhydrAMINE (Benadryl) 50 MG capsule Take 25 mg by mouth every 6 hours as needed * ferrous sulfate 325 (65 FE) MG tablet Take 1 (one) tablet by mouth once daily * Halobetasol Prop-Tazarotene (Duobrii) 0.01-0.045 % LOTN Apply 1 g to affected area as needed * imiquimod (Aldara) 5 % cream(Started 01/27/2023) Apply 1 g to affected area as needed * melatonin 3 MG tablet Take 1 (one) tablet by mouth at bedtime * oxyBUTYnin CR 24hr (Ditropan-XL) 5 MG tablet(Started 10/19/2023) Take 1 (one) tablet by mouth once daily * tirzepatide (Mounjaro) 2.5 MG/0.5ML injection(Started 11/22/2023) Inject 12.5 (twelve and one-half) mg subcutaneously every 7 days * sertraline (Zoloft) 100 MG tablet(Started 10/19/2023) Take 1 (one) tablet by mouth once daily * MULTIPLE VITAMIN PO Take 1 tablet by mouth once daily * cyanocobalamin (Vitamin B-12) 1000 MCG tablet Take 1 (one) tablet by mouth once daily * Cholecalciferol (Vitamin D3) 1.25 MG (37756 UT) Take by mouth once daily * ascorbic acid (Vitamin C) 250 MG tablet Take 4 (four) tablets by mouth once daily * MAGNESIUM CITRATE PO Take 250 mg by mouth once daily * azelastine (Astelin) 0.1 % nasal spray [place] 1 (one) spray into each nostril 2 times daily * fluticasone propionate (Flonase) 50 MCG/ACT nasal spray [place] 2 (two) sprays into each nostril once daily * acetaminophen (Tylenol) 325 MG tablet(Started 12/31/2023) Take 2 (two) tablets by mouth every 6 hours as needed for Fever or Pain Maximum allowable Acetaminophen amount = 4 Grams (4000 mg) / 24 hours. 1 refill by 12/30/2024 * oxyCODONE, immediate release, (Roxicodone) 5 MG tablet(Started 12/31/2023) Take 1 (one) tablet by mouth every 6 hours as needed for Pain * predniSONE (Deltasone) 10 MG tablet(Started 01/13/2024) Take 1 (one) tablet by mouth once daily Active Problems Problem Noted Date Diagnosed Date Laryngopharyngeal reflux (LPR) 02/07/2024 Immunizations * INFLUENZA VACCINE, TRIV. (AFLURIA, FLUZONE TRIVALENT; 6MO+) (IIV3)(Given 07/14/2017, 07/10/2013) * FLU VACCINE TRI IIV3 SPLIT PF IM (FLUVIRIN)(Given 2017) * INFLUENZA VACCINE(Given 06/03/2017) * INFLUENZA VACCINE, HIGH-DOSE, QUADR. (FLUZONE HIGH-DOSE QUADRIVALENT; 65Y+), 0.7 ML (HD-IIV4)(Given 06/04/2014) * INFLUENZA VACCINE, QUADR. (FLUZONE; FLULAVAL; FLUARIX; AFLURIA QUADRIVALENT; 6MO+), 0.5 ML (IIV4)(Given 07/05/2021) * TDAP (7yrs+)(Given 05/04/2021, 07/23/2011) * Zoster Hzv Vacc Recombinant Inj Im(Given 04/12/2022, 01/02/2022) Social History Tobacco Use Types Packs/Day Years [...] Mass Index 37.59 02/05/2024 3:23 PM CDT Procedures * PATHOLOGY TISSUE(Performed 12/31/2023) Performed for Thyroid nodule * ENDOTRACHEAL TUBE NOTE(Performed 12/31/2023) * W[place] THYROID LOBECTOMY,UNILAT(Performed 12/31/2023) Performed for Thyroid nodule * TYPE + SCREEN PANEL(Performed 12/31/2023) Performed for Pre-op evaluation * TYPE + SCREEN PANEL(Performed 12/17/2023) Performed for Pre-op evaluation * CBC W AUTO DIFFERENTIAL(Performed 12/17/2023) Performed for Pre-op evaluation * BASIC METABOLIC PANEL (CALCIUM TOTAL)(Performed 12/17/2023) Performed for Pre-op evaluation Results * PATHOLOGY TISSUE (12/31/2023 8:49 AM CDT) Case Report Surgical Pathology Report ? Case: [id number] ? Authorizing Provider: ??Jamal Milian MD ?Collected: ? 12/31/2023 08:49 AM ? Ordering Location: ? [facility] ?Received: ?12/31/2023 11:12 AM ? Pathologist: ? Po Baird MD ? Specimen: ?Thyroid, Left Lobe, Left Thyroid Lobe Stitch Superior ? 01/01/2024 2:56 PM CDT [facility] Final Diagnosis Thyroid, left lobe, lobectomy (A): - Benign adenomatoid nodule with metaplastic changes - No evidence of a neoplasm 01/01/2024 2:56 PM [facility] Microscopic Description and Comment Microscopic examination substantiates the final diagnosis. 01/01/2024 2:56 PM [facility] Clinical History The patient is a 58 year old female with a pre-operative FNA showing a TBS category IV lesion, suspicious for a follicular neoplasm. 01/01/2024 2:56 PM [facility] Gross Description The requisition and specimen(s) are identified with the patient's name Kishan Rodriguez . Received in formalin, specimen A , is consists of a 6 g, 3.2 x 2.5 x 1.2 cm left thyroid lobectomy with a 2.4 x 1.6 x 0.6 cm isthmus oriented with a black stitch at superior. The capsule is red-brown with adhered fibrous tissue. The specimen is inked as follows: Anterior surface = blue, posterior surface = black, and isthmus = orange. The specimen is serially sectioned from superior to inferior to show located in the mid inferior pole is a 1.5 x 1.1 x 1.1 cm encapsulated cyst with a 0.1-0.2 cm thick wall filled with thin yellow fluid and is 90% filled with a pink-brown soft solid, <0.1 cm to the anterior surface, 0.2 cm to the posterior surface and 1.5 cm to the isthmus margin. Discontinuous with the cyst is a 0.8 x 0.3 x 0.2 cm cavity filled with A yellow semitransparent gelatinous material, <0.1 cm to the anterior surface and <0.1 cm to the posterior surface. The uninvolved parenchyma is red-brown and glistening. Swine Genetics Researcher sections are submitted as follows: A1-superior pole with cavity, A2-A5- Mid inferior pole cyst, submitted entirely, A6-Uninvolved mid superior pole parenchyma.//LOBO 01/01/2024 2:56 PM [facility] Pathologist Location at [facility] 01/01/2024 2:56 PM [facility] Disclaimer The performance characteristics of all immunohistochemical and indirect immunofluorescence stains (if any) cited in this report were determined by the Histopathology Laboratory of [facility]. Some of these tests were developed by our own laboratory and have not been cleared or approved by the US Food and Drug Administration. The FDA does not require this test to go through premarket FDA review. These tests are used for clinical purposes. They should not be regarded as investigational or for research. This laboratory is certified under the Clinical Laboratory Improvement Amendments (CLIA) as qualified to perform high complexity clinical laboratory testing. This case has been personally reviewed and interpreted by the attending (teaching) pathologist. 01/01/2024 2:56 PM CDT [facility] Embedded Images 01/01/2024 2:56 PM CDT [facility] Biopsy, Excision (Thyroid, Left Lobe) 12/31/2023 8:49 AM CDT 12/31/2023 11:12 AM CDT Comment:Pre-op diagnosis: Thyroid nodule Jamal Milian MD LAB - PATHOLOGY/CYTO LOGY ORDERABLES Performing Organization Address [facility] Phone Number [facility] [address] [phone] * ETT LINE PERFORMABLE (12/31/2023 8:09 AM CDT) Narrative Kiko Vicente Anes Asst - 12/31/2023 8:09 AM CDT Kiko Vicente Anes Asst ? 12/31/2023 ??8:11 AM Endotracheal Tube Placement: ? Patient Location: OR. Intubation Event Date/Time: ??12/31/2023 7:39 AM Procedure: intubation (38710). Procedure Section: ?? Sedation: under general anesthesia. Indications for Airway Management: ??anesthesia Induction: standard IV Patient Position: ??sniffing Mask Ventilation: easy with oral airway. Blade Type: Video (CMAC-MAC 3 Blade) Blade Size: 3 Laryngoscopy View: grade 2 (partial cords) (Large Epiglottis) Intubation Adjuncts: video laryngoscope Tube: nerve integrity monitoring tube Placement: oral Tube type: cuff - inflated Tube Size (MM): 7 Depth of Insertion (CM): 21 Measured From: teeth Cuff Inflated With: air Number of Attempts: 1. Placement Verified By: direct visualization, bilateral breath sounds, chest auscultation and CO2 monitor Tube secured with: ??adhesive tape. Dentition unchanged? ??Yes Difficult Airway? ??No. Procedure Start Time: 12/31/2023 7:39 AM. Staff Section ? Anesthesia Provider: Kiko Vicente Anes Asst, Performed the procedure ? Provider #1: Rudy Narvaez MD. Rudy Narvaez MD GENERAL ANESTHESIA O RDERABLES * TYPE + SCREEN PANEL (12/31/2023 6:22 AM CDT) Only the most recent of2 resultswithin the time period is included. [facility] Antibody Screen NEG 7:16 AM CDT [facility] ABO Rh O POS 12/31/2023 7:16 AM CDT [facility] Blood Bank BLOOD SPECIMEN / Unknown Venipuncture / Unknown 12/31/2023 6:22 AM CDT 12/31/2023 6:28 AM CDT Stacey Auguste MATRIX INSPECTOR-DATA MINER LAB - BLO OD BANK ORDERABLES Performing Organization Address City/State/[facility] Co de Phone Number [facility] [address] [place] [address], [facility] [phone] * (ABNORMAL) CBC W/ DIFFERENTIAL (12/17/2023 9:54 AM CDT) [facility] WBC 5.6 4.0 - 10.7 x10E9/L 12/17/2023 10:30 AM [facility] RBC Count 4.44 3.90 - 5.20 x10E12/L 12/17/2023 10:30 AM [facility] Hemoglobin 13.1 11.9 - 15.8 g/dL 12/17/2023 10:30 AM [facility] Hematocrit 39.8 34.8 - 46.1 % 12/17/2023 10:30 AM [facility] MCV 89.6 80.0 - 98.0 fL 12/17/2023 10:30 AM [facility] MCH 29.5 26.7 - 33.6 pg 12/17/2023 10:30 AM [facility] MCHC 32.9 31.7 - 36.3 g/dL 12/17/2023 10:30 AM [facility] RDW-CV 13.2 11.3 - 14.8 % 12/17/2023 10:30 AM [facility] Platelet Count 220 150 - 420 x10E9/L 12/17/2023 10:30 AM [facility] MPV 12.1(H) 7.8 - 11.4 fL 12/17/2023 10:30 AM [facility] Neutrophil % 66.2 41.0 - 74.0 % 12/17/2023 10:30 AM [facility] Lymphocyte % 26.3 17.0 - 47.0 % 12/17/2023 10:30 AM [facility] Monocyte % 5.7 3.0 - 11.0 % 12/17/2023 10:30 AM [facility] Eosinophil % 1.3 0.0 - 7.0 % 12/17/2023 10:30 AM [facility] Basophil % 0.5 0.0 - 1.6 % 12/17/2023 10:30 AM [facility] Immature Granulocytes % 0.0 0.0 - 1.0 % 12/17/2023 10:30 AM [facility] Neutrophil Absolute 3.69 1.60 - 7.50 x10E9/L 12/17/2023 10:30 AM [facility] Lymphocyte Absolute 1.47 1.00 - 4.40 x10E9/L 12/17/2023 10:30 AM [facility] Monocyte Absolute 0.32 0.15 - 1.00 x10E9/L 12/17/2023 10:30 AM [facility] Eosinophil Absolute 0.07 0.00 - 0.60 x10E9/L 12/17/2023 10:30 AM [facility] Basophil Absolute 0.03 0.00 - 0.13 x10E9/L 12/17/2023 10:30 AM [facility] Blood BLOOD SPECIMEN / Unknown Lab Venipuncture / Unknown 12/17/2023 9:54 AM CDT 12/17/2023 10:17 AM CDT Stacey Auguste MATRIX INSPECTOR-DATA MINER LAB - HEM ATOLOGY ORDERABLES [facility] [address] [place] [address], [facility] [phone] * (ABNORMAL) BASIC METABOLIC PANEL (CALCIUM TOTAL) (12/17/2023 9:54 AM CDT) BUN 18 7 - 26 mg/dL 12/17/2023 11:30 AM [facility] Creatinine 0.80 0.56 - 0.96 mg/dL 12/17/2023 11:30 AM [facility] Sodium 144 136 - 145 mmol/L 12/17/2023 11:30 AM [facility] Potassium 4.3 3.5 - 4.5 mmol/L 12/17/2023 11:30 AM [facility] Chloride 107 98 - 107 mmol/L 12/17/2023 11:30 AM [facility] CO2 26 22 - 29 mmol/L 12/17/2023 11:30 AM [facility] Glucose 94 70 - 115 mg/dL 12/17/2023 11:30 AM [facility] Calcium 9.8 8.4 - 10.2 mg/dL 12/17/2023 11:30 AM [facility] Anion Gap 11 6 - 16 12/17/2023 11:30 AM [facility] BUN/Creatinine Ratio 23 7 - 23 12/17/2023 11:30 AM [facility] Osmolality Calculated 300(H) 275 - 295 mOsm/kg 12/17/2023 11:30 AM [facility] eGFR by CKD-EPI 86(L) >=90 mL/min/1.7 3 m2 12/17/2023 11:30 AM [facility] Blood BLOOD SPECIMEN / Unknown Lab Venipuncture / Unknown 12/17/2023 9:54 AM CDT 12/17/2023 10:17 AM CDT Stacey Adadigna Auguste MATRIX INSPECTOR-DATA MINER LAB - [facility]RIK[facility] ORDERABLES Performing Organization Address City/State/[facility] Co de Phone Number [facility] [address] [place] [phone], [facility] [phone] Care Teams Absence Management Consultant Relationship Specialty Start Date End Date Precious Mcmahan MD [address] [place] [address] PCP - General Family Medicine 12/09/23
--- OUTSIDE RECORDS SUMMARY | 2024-10-06 01:19 | XMS_ITS | Clinical Summary ---
Author Organization [facility] Address [address] [place] [address] Care Team Providers Care Aquarium Specialist Name Role Phone Precious Mcmahan MD Primary Care Provider [phone] Source Comments [facility],non-owned Affiliates and Associated Physician Practices is amultiple site organization consisting of ambulatory clinics and hospital sitesin [place], [place], [place] and [place]. This disclosure is being madepursuant to the Care Everywhere program and may not contain all information available regarding this patient. Last updated 18.[facility] Allergies Active Allergy Reactions Criticality Noted Date [...] daily Active Cholecalciferol (Vitamin D3) 1.25 MG (24449 UT) Take by mouth once daily Active ascorbic acid (Vitamin C) 250 MG tablet Take 4 (four) tablets by mouth once daily Active MAGNESIUM CITRATE PO Take 250 mg by mouth once daily Active azelastine (Astelin) 0.1 % nasal spray [place] 1 (one) spray into each nostril 2 times daily Active fluticasone propionate (Flonase) 50 MCG/ACT nasal spray [place] 2 (two) sprays into each nostril once [...] Mass Index 37.59 02/05/2024 3:23 PM CDT Plan of Treatment Health Maintenance Due Date Last Done Comments PAM (AGES 45-75) - COLON CA SCREENING 1966 COLON MONITORING 1966 COLONOSCOPY - COLON CA SCREENING 1966 CT COLONOGRAPHY - COLON CA SCREENING 1966 Colorectal Cancer Screening 1966 FIT - COLON CA SCREENING 1966 FLEX SIG - COLON CA SCREENING 1966 LIPID TESTING 1966 MAMMOGRAM 1966 PAP SMEAR 1966 HIV SCREENING 1981 HEPATITIS C SCREENING 05/28/1984 HEPATITIS B VACCINE (1 of 3 - 19+ 3-dose series) 1985 PNEUMOCOCCAL VACCINE 50+ (1 of 1 - PCV) 2016 COVID-19 VACCINE (1 - season) 2024 INFLUENZA VACCINE (#1) 2024 , 07/14/2017, 06/03/2017, Additional history exists DEPRESSION SCREENING 09/07/2024 SCREENING FOR DIABETES 12/16/2026 12/17/2023 DTAP/TDAP/TD VACCINES (3 - Td or Tdap) 05/04/2031 05/04/2021, 07/23/2011 ZOSTER VACCINE Completed 04/12/2022, 01/02/2022 HIB VACCINE Aged Out No longer eligi ble based on patient's age to complete this topic HPV VACCINE Aged Out No longer eligi ble based on patient's age to complete this topic MENINGOCOCCAL (Group B) VACCINE Aged Out No longer eligible based on patient's age to complete this topic MENINGOCOCCAL VACCINE Aged Out No donna yahir eligible based on patient's age to complete this topic PNEUMOCOCCAL VACCINE Aged Out No long er eligible based on patient's age to complete this topic Procedures Procedure Name Priority Date/Time Associated Diagnosis Comments BASIC METABOLIC PANEL (CALCIUM TOTAL) Routine 12/17/2023 9:54 AM CDT Pre-op evaluation from Last 3 Months or Most Recently Relevant to Health Maintenance Results * (ABNORMAL) BASIC METABOLIC PANEL (CALCIUM TOTAL) (12/17/2023 9:54 AM CDT) BUN 18 7 - 26 mg/dL 12/17/2023 11:30 AM CDT [facility] Creatinine 0.80 0.56 - 0.96 mg/dL 12/17/2023 11:30 AM [facility] Sodium 144 136 - 145 mmol/L 12/17/2023 11:30 AM [facility] Potassium 4.3 3.5 - 4.5 mmol/L 12/17/2023 11:30 AM [facility] Chloride 107 98 - 107 mmol/L 12/17/2023 11:30 AM [facility] CO2 26 22 - 29 mmol/L 12/17/2023 11:30 AM [facility] Glucose 94 70 - 115 mg/dL 12/17/2023 11:30 AM [facility] Calcium 9.8 8.4 - 10.2 mg/dL 12/17/2023 11:30 AM [facility] Anion Gap 11 6 - 16 12/17/2023 11:30 AM [facility] BUN/Creatinine Ratio 23 7 - 23 12/17/2023 11:30 AM [facility] Osmolality Calculated 300(H) 275 - 295 mOsm/kg 12/17/2023 11:30 AM [facility] eGFR by CKD-EPI 86(L) >=90 mL/min/1.7 3 m2 12/17/2023 11:30 AM [facility] Blood BLOOD SPECIMEN / Unknown Lab Venipuncture / Unknown 12/17/2023 9:54 AM CDT 12/17/2023 10:17 AM CDT Stacey Auguste CARDIOLOGY TECHNOLOGIST-CEMENT CUTTER LAB - [place] [place] ORDERABLES [facility] [address] [place] [address], [facility] [phone] from Last 3 Months or Most Recently Relevant to Health Maintenance Care Teams Aquarium Specialist Relationship Specialty Start Date End Date Precious Mcmahan MD [address] [place] [address] PCP - General Family Medicine 12/09/23
[2024-10-06] MEDS: VANCOMYCIN 1,750 MG/NS 500 ML BAG 250 MG IVPB (07:00)
[2024-10-06] MEDS: TRANEXAMIC ACID 1,000MG/ISO100 1,000 MG/100 ML BAG 200 MG IVPB (07:01)
[2024-10-06] MEDS: LACTATED RINGERS 1,000 ML 30 ML IV CONT ×2 (07:01→11:03)
[2024-10-06] MEDS: ACETAMINOPHEN 500 MG TABLET 1000 MG PO (07:01)
--- NOTE | 2024-10-06 07:12 | WPDHPUPDATE1 ---
History and Physical Update Update Date/Time: 10/06/24 07:12 History and Physical has been reviewed, including an updated exam of the patient. There are NO changes in the patient's condition. Risks, benefits, and alternatives have been discussed and questions answered. Patient agrees to proceed with procedure.
[2024-10-06] MEDS: ceFAZolin 2 GM/D5W 50 ML 2 GM/50 ML BAG IVPB ×2 (07:39→16:27)
[2024-10-06] MEDS: SCOPOLAMINE 1 MG PATCH 1 PATCH TRANSDERM (07:52)
[2024-10-06] MEDS: SODIUM CHLORIDE 0.9% IV 37.7 ML, MORPHINE SULFATE INJ (*CRX) 2 MG, ROPivacaine HCL 1% 2... INFILTRATE (08:33)
[2024-10-06] MEDS: ceFAZolin SODIUM 1 GM VIAL 3 GM (08:34)
[2024-10-06] MEDS: GENTAMICIN BONE CEMENT REFOBACIN 1 EACH TOPICAL (10:10)
[2024-10-06] MEDS: ceFAZolin SODIUM 1 GM VIAL 2 GM IV PUSH (10:13)
[2024-10-06] MEDS: TRANEXAMIC ACID 1,000 MG/10 ML AMPUL 1000 MG IV PUSH (10:13)
[2024-10-06] MEDS: KETOROLAC 15 MG/ML VIAL (*BKC) IV PUSH ×3 (10:15→23:00)
--- NOTE | 2024-10-06 11:09 | PM.OP ---
Procedure Note - Brief Procedure Note - Brief Date of procedure: 10/06/24 left knee OA Procedure performed: Left total knee arthroplasty Surgeon: RANDY Slaughter Findings: 59-year-old female who underwent left total knee arthroplasty on 10/06. I was amount in the procedure including positioning the patient on the OR to will use in 1st assisting through the time of surgery. Total time spent was 3-1/2 hours
--- NOTE | 2024-10-06 11:09 | W.PM.PROC2 ---
Procedure Note - Detailed Date of Procedure 10/06/24 Pre-op Diagnosis left knee OA, obesity BMI of 37.2 Post-op Diagnosis Same Procedure Performed Left total knee arthroplasty Surgeon Ilia Farley MD [employer] Operations Director Eugenio Anesthesia General Description of Procedure Patient was brought to the operating room and general anesthesia was administered. The left knee was prepped draped usual fashion. The limb was exsanguinated tourniquet elevated to 300 mmHg. We did note under anesthesia she had a 5 degree flexion contracture in the left knee. She received 2 g of Ancef weight based vancomycin 1 g of TXA preoperatively. There was extra difficulty with the procedure due to her obesity which at about 40 minutes of time to the procedure. A 7 in longitudinal midline incision was used and a vastus medialis splitting approach utilized splitting the vastus medialis at the superior pole of patella. Partial excision of infrapatellar fat pad performed and quadriceps synovectomy carried out. Suprapatellar fat pad was excised. Patella had osteophytes had some central chondromalacia otherwise appeared very suitable for non resurfacing. A guide wojciech was inserted on femoral canal after aspiration of canal contents using the 5 degree valgus cutting bushing, 8 mm of bone removed the distal femur. We chose 8 mm as 8 mm was the proper resection for the other knee all of the other knee did have some hyperextension preop. Next the tibial plateau was cut. We removed about 2 mm of bone from the low point of medial tibial plateau perpendicular to the axis of the tibia. Meniscal remnants were excised and the PCL was recessed. Flexion gap measured 10 mm laterally and 8 mm medially. Femoral sizing guide was applied to the distal femur set at 3? of external rotation which matched Whitesides line. Posterior referencing pinholes were placed. The a 62.5 was going to notch a little bit but was the proper with. We applied the 65 cutting block made the AP anterior cut. This confirmed that the 62.5 would have notched a little bit. We applied couple of degrees of flexion to the distal femoral cut we applied the 62.5 cutting block and pinned it with the spring pins. This gave a flush cut with the anterior cortex anteriorly posterior chamfer cuts were made. The the tibia was sized to a size 71 which was placed at proper rotation and punched. The we removed anteromedial osteophytes earlier. On trialing the he was quite tight medially in extension with the 10 mm insert. At 90? of flexion the medial side open 1/2 cm lateral side 1 mm. She did not have a significant varus deformity preoperatively although she did have large posteromedial osteophytes and these were removed at this time from the posteromedial tibial plateau. The on read trialing the knee lacked still about 7? of extension with no play medially and 2 mm of play laterally. An additional mm of bone was removed the distal femur and posterior femoral osteophytes removed which was quite prominent medially. On read trialing the knee still had a positive bounce coming to about 2 mm from full extension. We had put the tourniquet down to make sure that our lack of extension was not due to inflated tourniquet. The foot was released at 85 minutes. An additional mm of bone was removed from the distal femur and on read trialing the knee came just out to full extension if the the borderline bounce and no play medially. The there was 2-3 mm of lateral opening in this position. At 5? of flexion there is still no play medially. We assessed the distal femoral alignment with the intramedullary wojciech and 5 degree waiting and I felt we were at about 5.5? of anatomic axis valgus. I elected to remove 1 mm of bone from the medial femoral condyle distally and this was transitioned to the lateral side given his for 0.5? of anatomic axis valgus and the at this time the knee was read trialed came out to full extension with negative bounce. There was a mm of medial opening at 5? of flexion and again 2-3 mm of lateral opening appropriate anterior posterior stability throughout range of motion gravity flexion to 135 and central patellar tracking all the way back. Lug holes were drilled for the femoral component. The limb was re-exsanguinated tourniquet elevated to 300 mmHg and the bony surfaces were prepped with the step drill and irrigated and dried. Two batches of methylmethacrylate 1 of the gentamicin powder were utilized and immediately applied to the 71 tibial component and then the size 62.5 left femoral component. Cement was applied to the tibia pressurized tibial component fully seated cement by the femur the femoral component fully seated the knee brought into extension with a 11 mm 5 and 1 insert for pressurization tourniquet released. Total tourniquet time was about 105 minutes. After cement hardening excess cement was sought for removed and hemostasis was achieved we trialed the 10 insert which had appropriate stability throughout range of motion and full extension. Negative bounce extension although no play medially to valgus stress. Patellar tracking was central throughout range of motion. The 10 insert was placed locked with a locking pin range of motion stability patellar tracking reconfirmed. Arthrotomy closed with 2. Vicryl 1. Unidirectional barbed Stratafix suture. Split closed with 1. Vicryl. Skin closed with 2 subcutaneous Vicryl and 3-0 subcuticular Monocryl and glue EBL was 250 cc. 2 g of Ancef 1 g TXA given time wound closure. There were no complications he was transferred postop recovery room in stable condition. [facility] - Charge Forward: Surgery Billing (Left total knee arthroplasty)
[2024-10-06] MEDS: fentaNYL CITRATE INJ (*CRX) 100 MCG/2 ML VIAL 25 MCG IV PUSH ×5 (11:15→11:46)
[2024-10-06] MEDS: ACETAMINOPHEN 325 MG TABLET 650 MG PO ×3 (12:35→20:24)
[2024-10-06] MEDS: oxyCODONE HCL (*CRX) 5 MG TAB IR PO ×4 (12:36→20:24)
[2024-10-06] MEDS: SODIUM CHLORIDE 0.9% IV 1,000 ML 125 ML IV CONT (12:36)
[2024-10-06] MEDS: SENNA/DOCUSATE SODIUM TABLET 2 TAB PO (16:27)
[2024-10-06] MEDS: VANCOMYCIN 1,000 MG/NS 250 ML 1,000 MG/250 ML BAG 250 MG IVPB (18:21)
[2024-10-06] MEDS: FAMOTIDINE 20 MG TABLET PO (20:24)
[2024-10-06] MEDS: SERTRALINE HCL 50 MG TABLET 100 MG PO (20:24)
[2024-10-07] VITALS: BP 108/53; PULSE 75; RESP 16; TEMP 37; O2SAT 96
[2024-10-07] MEDS: ceFAZolin 2 GM/D5W 50 ML 2 GM/50 ML BAG IVPB ×2 (00:12→08:46)
[2024-10-07] MEDS: ACETAMINOPHEN 325 MG TABLET 650 MG PO ×3 (00:12→08:45)
[2024-10-07] MEDS: oxyCODONE HCL (*CRX) 5 MG TAB IR PO ×3 (00:12→08:46)
[2024-10-07 05:26] VITALS: BP 123/57; PULSE 73; RESP 16; TEMP 36.1; O2SAT 95
[2024-10-07 06:32] LABS: Basophils Percent Auto 0.4 % (0.2-1.2); Eosinophils Percent Auto 0.2 % (0-4.4); Hematocrit 32.8 % (37.0-47.0); Hemoglobin 10.3 g/dL (12.0-15.0); Immature Granulocyte Absolute 0.02 K/mm3 (0.00-0.031); Immature Granulocyte Percent A 0.2 % (0-0.5); Lymphocytes Absolute Auto 2.09 K/mm3 (0.9-3.2); Lymphocytes Percent Auto 21.1 % (18.3-44.2); Mean Corpuscular HGB Conc 31.4 g/dl (32-36); Mean Corpuscular Hemoglobin 28.9 pg (26-34); Mean Corpuscular Volume 91.9 fl (80-100); Mean Platelet Volume 11.2 fl (7.4-10.4); Monocytes Absolute Auto 0.7 K/mm3 (0.1-0.6); Monocytes Percent Auto 7.4 % (2.6-8.5); Neutrophils Percent Auto 70.7 % (45.5-73.1); Platelet Count Result 183 k/mm3 (150-375); Red Blood Count 3.57 M/mm3 (4.2-5.4); Red Cell Distribution Width 13.9 % (11.5-14.5); White Blood Count 9.9 K/mm3 (4.5-10.0)
[2024-10-07] MEDS: VANCOMYCIN 1,000 MG/NS 250 ML 1,000 MG/250 ML BAG 250 MG IVPB (06:34)
[2024-10-07 06:50] LABS: Anion Gap 7 mmol/L (4-12); Blood Urea Nitrogen 17 mg/dL (7-17); Calcium 8.4 mg/dL (8.4-10.2); Carbon Dioxide 27 mmol/L (22-30); Chloride 105 mmol/L (98-107); Estimated CRCL calculation 102 ml/min; Estimated Glomerular Filt Rate > 60; Glucose 95 mg/dL (65-110); Potassium 3.9 mmol/L (3.4-5.0); Sodium 139 mmol/L (137-145)
--- NOTE | 2024-10-07 07:27 | PM.PNORT ---
Subjective Subjective Date/Time Seen: 10/07/24 07:27 Interval history: Postop day 1 patient is alert. She is afebrile vital signs are stable. Dressing is dry and intact. Neurovascularly she is intact. Pain is well controlled. Patient was up yesterday with physical therapy and walking and comfortable. Patient is very alert. Morning labs are noted. The plan will be to have patient work with therapy again this morning and then be discharged home later this morning once IV antibiotics have been completed. Patient has had her right knee recur replaced recently and is well aware of her recovery process. Objective Data Vital Signs Vital Signs: Vital Signs - 24 hr 10/06/24 11:03 10/06/24 11:15 10/06/24 11:30 Temperature 97.3 F L Pulse Rate 94 85 86 Respiratory Rate 13 14 14 Blood Pressure 105/53 L 112/59 L 119/57 L Pulse Oximetry 97 99 93 Oxygen Delivery Simple Face Mask Simple Face Mask Room Air Oxygen Flow Rate 8 8 10/06/24 11:45 10/06/24 12:00 10/06/24 12:12 Temperature Pulse Rate 86 86 87 Respiratory Rate 16 20 20 Blood Pressure 115/63 130/75 115/72 Pulse Oximetry 96 96 97 Oxygen Delivery Nasal Cannula Nasal Cannula Nasal Cannula Oxygen Flow Rate 3 3 3 10/06/24 12:36 10/06/24 12:40 10/06/24 12:50 Temperature 98.1 F 98.1 F Pulse Rate 89 89 Respiratory Rate 18 18 Blood Pressure 132/70 131/66 Pulse Oximetry 98 99 Oxygen Delivery Room Air Oxygen Flow Rate 10/06/24 13:07 10/06/24 13:20 10/06/24 14:20 Temperature 97.9 F 97.3 F L Pulse Rate 88 96 Respiratory Rate 17 15 Blood Pressure 125/70 126/59 L Pulse Oximetry 98 96 Oxygen Delivery Room Air Oxygen Flow Rate 10/06/24 18:00 10/06/24 20:20 10/07/24 00:00 Temperature 97.1 F L 97.1 F L 98.6 F Pulse Rate 90 86 75 Respiratory Rate 14 18 16 Blood Pressure 122/58 L 108/52 L 108/53 L Pulse Oximetry 97 95 96 Oxygen Delivery Oxygen Flow Rate 10/07/24 05:26 Temperature 97 F L Pulse Rate 73 Respiratory Rate 16 Blood Pressure 123/57 L Pulse Oximetry 95 Oxygen Delivery Oxygen Flow Rate Intake/Output Intake/Output: Intake & Output 10/04/24 10/05/24 10/06/24 10/07/24 23:59 23:59 23:59 23:59 Intake Total 990 550 Output Total 400 850 Balance 590 -300 Meds/Results Medications: Active Medications Generic Name Dose Route Start Last Admin Trade Name Freq PRN Reason Stop Dose Admin Acetaminophen 650 mg 10/06/24 12:15 10/07/24 03:54 Acetaminophen 325 Mg Tablet PO 650 mg Q4H [facility] Administration Apixaban 2.5 mg 10/07/24 09:00 Apixaban 2.5 Mg Tablet PO 10/18/24 21:01 Q12HR [facility] Cefdinir 300 mg 10/07/24 09:00 Cefdinir 300 Mg Capsule PO Q12HR [facility] Diphenhydramine HCl 25 mg 10/06/24 12:15 Diphenhydramine Hcl Inj 50 Mg/Ml Vial IV PUSH Q6H PRN Itching Famotidine 20 mg 10/06/24 21:00 10/06/24 20:24 Famotidine 20 Mg Tablet PO 20 mg Q12HR [facility] Administration Cefazolin Sodium 2 gm in 50 mls @ 100 mls/hr 10/06/24 16:00 10/07/24 00:42 Ancef 2 Gm/D5w 50 Ml IVPB 10/07/24 08:29 Infused Q8H [facility] Infusion Vancomycin HCl 1,000 mg in 250 mls @ 250 mls/hr 10/06/24 19:00 10/07/24 06:34 Vancomycin 1,000 Mg/Ns 250 Ml IVPB 10/07/24 07:59 250 mls/hr Q12H [facility] Administration Meloxicam 7.5 mg 10/07/24 08:00 Meloxicam 7.5 Mg Tablet PO DAILY@0800 [facility] Miscellaneous Information 1 each 10/06/24 00:01 Apremilast Nonformulary. Can Patient Use From Home Or Hold Till Discharge? XX 11/05/24 00:00 CLARIFY [facility] Morphine Sulfate 2 mg 10/06/24 12:15 Morphine Sulfate (*Crx) 2 Mg/Ml Inj IV PUSH Q2H PRN Breakthrough Pain Rated 4-6 or NPO Naloxone HCl 0.1 mg 10/06/24 12:15 Naloxone Hcl 0.4 Mg/Ml Vial IV PUSH Q2M PRN Opiate Reversal Non-Formulary Medication 30 mg 10/06/24 17:00 Apremilast [Otezla] PO 11/05/24 16:59 BID MARTIN Ondansetron HCl 4 mg 10/06/24 12:15 Ondansetron Inj 4 Mg/2 Ml Vial IV PUSH Q4H PRN Nausea And Vomiting Oxycodone HCl 5 mg 10/06/24 12:15 10/07/24 03:55 Oxycodone Hcl (*Crx) 5 Mg Tab Ir PO 5 mg Q4H [facility] Administration Oxycodone HCl 5 mg 10/06/24 12:15 10/06/24 14:03 Oxycodone Hcl (*Crx) 5 Mg Tab Ir PO 5 mg Q4H PRN Administration Pain Rated 7-10 Polyethylene Glycol 17 gm 10/07/24 09:00 Polyethylene Glycol 3350 17 Gm Powd.Pack PO QAM [facility] Senna/Docusate Sodium 2 tab 10/06/24 17:00 10/06/24 16:27 Senna/Docusate Sodium Tablet PO 2 tab BID MARTIN Administration Sertraline HCl 100 mg 10/06/24 21:00 10/06/24 20:24 Sertraline Hcl 50 Mg Tablet PO 100 mg HS [facility] Administration Solifenacin 10 mg 10/07/24 09:00 Solifenacin 5 Mg Tablet PO QAM [facility] Radiology Results: ITS Impressions Knee X-Ray 10/06/24 11:13 IMPRESSION: 1. Total left knee arthroplasty in near-anatomic alignment. Labs Labs: Laboratory Results - last 24 hr 10/07/24 06:12 WBC 9.9 RBC 3.57 L Hgb 10.3 L Hct 32.8 L MCV 91.9 MCH 28.9 MCHC 31.4 L RDW 13.9 Plt Count 183 MPV 11.2 H Immature Gran % (Auto) 0.2 Neut % (Auto) 70.7 Lymph % (Auto) 21.1 [place] % (Auto) 7.4 Eos % (Auto) 0.2 Baso % (Auto) 0.4 Lymph # (Auto) 2.09 [place] # (Auto) 0.7 H Eos # (Auto) 0.0 Baso # (Auto) 0.0 Abs Immat Gran (auto) 0.02 Absolute Neuts (auto) 7.0 H Absolute Nucleated RBC 0.000 Nucleated RBC % 0.0 Sodium 139 Potassium 3.9 Chloride 105 Carbon Dioxide 27 Anion Gap 7 BUN 17 Creatinine 0.65 L Estim Creat Clear Calc 102 Estimated GFR > 60 Glucose 95 Calcium 8.4
--- NOTE | 2024-10-07 08:18 | PCOTNOTE ---
The patient treatment was not able to be completed. Patient reports she is confident in her abilities to complete ADLs safely. Will plan to continue treatment per plan of care.
[2024-10-07] MEDS: SOLIFENACIN 5 MG TABLET 10 MG PO (08:45)
[2024-10-07] MEDS: CEFDINIR 300 MG CAPSULE PO (08:45)
[2024-10-07] MEDS: polyethylene glycoL 3350 17 GM POWD.PACK PO (08:46)
[2024-10-07] MEDS: FAMOTIDINE 20 MG TABLET PO (08:46)
[2024-10-07] MEDS: APIXABAN 2.5 MG TABLET PO (08:46)
[2024-10-07] MEDS: SENNA/DOCUSATE SODIUM TABLET 2 TAB PO (08:46)
[2024-10-07] MEDS: MELOXICAM 7.5 MG TABLET PO (08:46)
== END 2024-10-07 09:50 | disposition home or self-care (01) ==
LOC: ANHSURGERY 08:27 → ANH3MED 12:18
PROVIDERS: Physician Assistant Surgical; PCP Family Medicine; Visit Provider Orthopaedic Surgery
PROC: (CPT 27447; principal; 2024-10-06 07:30)
DX: M17.12 Unilateral primary osteoarthritis, left knee (principal); M25.762 Osteophyte, left knee; M94.262 Chondromalacia, left knee; E03.9 Hypothyroidism, unspecified; G47.33 Obstructive sleep apnea (adult) (pediatric); F41.9 Anxiety disorder, unspecified; K21.9 Gastro-esophageal reflux disease without esophagitis; E53.8 Deficiency of other specified B group vitamins; F32.89 Other specified depressive episodes; E05.90 Thyrotoxicosis, unspecified without thyrotoxic crisis or storm; F40.240 Claustrophobia; L40.9 Psoriasis, unspecified; E66.9 Obesity, unspecified; Z68.37 Body mass index [BMI] 37.0-37.9, adult; Z79.85 Long-term (current) use of injectable non-insulin antidiabetic drugs; Z98.890 Other specified postprocedural states; Z87.891 Personal history of nicotine dependence; Z86.002 Personal history of in-situ neoplasm of other and unspecified genital organs; Z80.0 Family history of malignant neoplasm of digestive organs; Z82.49 Family history of ischemic heart disease and other diseases of the circulatory system
CPT/HCPCS: 27447; 36415; 73560; 80048; 85025; 97110; 97116; 97161; 97165; A9270; C1713; C1776; J0171; J0690; J1100; J1885; J2003; J2250; J2270; J2371; J2405; J2704; J2795; J3010; J3370; J7030; J7120

== ENCOUNTER 2024-11-28 13:39 | Outpatient (CLI) | payer OTHER, SELFPAY ==
--- NOTE | ~2024-11-28 | MM_ITS ---
EXAMINATION: MM screening [facility] BI w marla HISTORY: Screening TECHNIQUE: Craniocaudal and mediolateral oblique 3-D tomosynthesis images were obtained and synthetic 2-D images were generated. CAD analysis was submitted and interpreted. COMPARISON: 07/04/2023 and dating back to 02/24/2017 BREAST PARENCHYMAL COMPOSITION: There are scattered areas of fibroglandular density. FINDINGS: Bulky calcifications are detected bilaterally, stable and benign in appearance. Stable parenchymal pattern without suspicious microcalcifications, architectural distortion, discrete masses or significant asymmetry. IMPRESSION: 1. No mammographic evidence of malignancy. 2. Recommend routine screening mammography in one year. BI-RADS Category 2: Benign finding(s). Reviewed, dictated and finalized at location A.
--- OUTSIDE RECORDS SUMMARY | 2024-11-28 15:35 | XMS_ITS ---
Author Organization [facility] Address [address] [address] Care Team Providers Care Heading Repairer Name Role Phone Precious Mcmahan MD Primary Care Provider TRACEE Kaye Unavailable [phone] REASON FOR VISIT 2 m fu Medications Medication SIG (Take, Route, Frequency, Duration) Notes Start Date End Date Status Multi Vitamin - 1 tablet Orally Once a day for 30 day(s) 02/29/2024 Active diphenhydrAMINE HCl 25 MG 1 capsule at b edtime as needed Orally Once a day for 30 day(s) 02/29/2024 Active Ketoconazole 2 % External for 25 Days Active oxyBUTYnin Chloride ER 5 MG Oral for 90 Days Active Sulfamethoxazole-Trimethopri m 800-160 MG Oral for 10 Days Active Solifenacin Succinate 10 MG Oral for 90 Days Active Omeprazole 20 MG Oral for 90 Days Active Mupirocin Calcium 2 % External for 15 Days Active predniSONE 10 MG Oral for 10 Days Active Ciprofloxacin HCl 500 MG Oral for 5 Days Active Otezla 30 MG 1 tablet Orally Twic e a day Active Imiquimod 5 % External for 28 Days Active Sertraline HCl 100 MG 1 tablet Orally On ce a day Active Vital Signs Blood pressure systolic 132 mm Hg 10/31/19 25 Blood pressure diastolic 64 mm Hg 025 Heart Rate 88 /min 10/31/2024 Weight 234 lbs 10/31/2024 BMI 36.65 kg/m2 10/31/2024 Height 67 in 10/31/2024 Respiratory Rate 16 /min 10/31/2024 Encounters Encounter Location Date Provider Diagnosis [address] [address] 10/31/2024 TRACEE CALDERÓN Varicose veins of bilateral lower extremities with pain I83.813 ; Lymphedema, not elsewhere classified I89.0 ; Pain in leg, unspecified M79.606 and Morbid (severe) obesity due to excess calories E66.01 Assessments Encounter Date Diagnosis (ICD Code) Assessment Notes Treatment Notes Treatment Clinical Notes Section Notes 10/31/2024 Varicose veins of bilateral lower extremities with pain (ICD-10 - I83.813) has more pains,suspect the large spider veins causing those,both legs injected,legs better,,used 0.5% jazmyn,no issues 10/31/2024 Lymphedema, not elsewhere classified (ICD-10 - I89.0) 10/31/2024 Pain in leg, unspecified (ICD-10 - M79.606) 10/31/2024 Morbid (severe) obesity due to excess calories (ICD-10 - E66.01) On glp1a,per pcp Plan Of Treatment Treatment Notes Assessment Notes Varicose veins of bilateral lower extremities with pain has more pains,suspect the large spider veins causing those,both legs injected,legs better,,used 0.5% jazmyn,no issues Morbid (severe) obesity due to excess calories On glp1a,per pcp Next Appt Details Follow Up: 4 Weeks, Reason: Provider Name:TRACEE JERNIGAN MICK, 12/19/2024 10:00:00 AM, [address], [id number], Progress Notes * Kishan GOULDDOB:1965 ( 59 yo F)Acc No.[id number]:10/31/2024 Progress Notes Patient: Kishan JERONIMO Provider: Nisreen Calderón MD :1965 A ge:59 Y S ex:Female Date:10/31/2024 Address:[address], [facility] Pcp:Precious Mcmahan MD Subjective: * Chief Complaints: * 1 . 2 m fu. * HPI: P atient presents for: 59 yowf,with long history of Lymphedema,treated maximally with pt/pump/compression,had recently a non healing wound for several months after trauma to left leg,how healed,still with edema,leh pains,heaviness,cramping,failing max med rx including stocking,all symptoms affecting her ADL,no dvt/thromboembolism,has obesity,djd,psoriasis,madi/cpap,has FH of cad/MVP,legs still hurting,varices still there ,behind right knee. * ROS: G eneral/Constitutional: Denies C hills. D enies F atigue. D enies F ever. D enies H eadache. D enies L ightheadedness. D enies N ight sweats.?Denies S leep disturbance. D enies W eight gain. D enies W eight loss. ? E ndocrine: Denies A cne. D enies C old intolerance. D enies D iabetes. D enies D ifficulty sleeping. D enies D izziness. D enies E xcessive sweating. D enies E xcessive thirst. D enies F requent urination. D enies H air loss. D enies H eat intolerance. D enies H ot flashes. D enies?Irregular menses. D enies T hyroid problems. D enies W eakness. D enies W eight loss. C ardiovascular: Denies C hest pain. D enies C hest pain at rest.?Denies C hest pain with exertion. A dmits C laudication. D enies C yanosis.?Denies D ifficulty laying flat. D enies D izziness. D enies D yspnea on exertion. D enies F luid accumulation in the legs. D enies H eart murmur. D enies?Heart problems. D enies H igh blood pressure. A dmits I rregular heartbeat. D enies O rthopnea. D enies P alpitations. D enies R heumatic fever. D enies Shortness of breath. D enies S welling in hands/feet. D enies W eakness. D enies W eight gain. P eripheral Vascular: Admits P ain/cramping in legs after exertion. A dmits?Painful extremities. D enies U lceration of feet. N eurologic: Denies B alance difficulty. D enies C oordination.?Denies D ifficulty speaking. D enies D izziness. D enies F ainting. D enies G ait abnormality. D enies H eadache. D enies I rritability. D enies Loss of strength. D enies L oss of use of extremity. D enies L ow back pain. D enies M noah loss. D enies P ain. D enies P aralysis. D enies S eizures. S troke D enies. D enies T ics. A dmits T ingling/Numbness. D enies Transient loss of vision. D enies T remor. * Medical History: * Medications: T aking Sertraline HCl 100 MG Tablet 1 tablet Orally Once a day , Taking Otezla 30 MG Tablet 1 tablet Orally Twice a day , Taking Imiquimod 5 % Cream External , Taking Solifenacin Succinate 10 MG Tablet Oral , Taking Omeprazole 20 MG Capsule Delayed Release Oral , Taking predniSONE 10 MG Tablet Oral , Taking Ciprofloxacin HCl 500 MG Tablet Oral , Taking Mupirocin Calcium 2 % Cream External , Taking Sulfamethoxazole-Trimethoprim 800-160 MG Tablet Oral , Taking Ketoconazole 2 % Cream External , Taking oxyBUTYnin Chloride ER 5 MG Tablet Extended Release 24 Hour Oral , Taking diphenhydrAMINE HCl 25 MG Capsule 1 capsule at bedtime as needed Orally Once a day , Taking Multi Vitamin - Tablet 1 tablet Orally Once a day Objective: * Vitals: O 2: 97, BP:132/64mm Hg, HR:88/min, Wt:234lbs, BMI:36.65Index, Ht: 67 in, RR:16/min. * Examination: G eneral Examination: GENERAL APPEARANCE: i n no acute distress, well developed, well nourished. HEAD: n ormocephalic, atraumatic. EYES: p upils equal, round, reactive to light and accommodation. EARS: n ormal. ORAL CAVITY: m ucosa moist. THROAT: c lear. NECK/THYROID: n marlo supple, full range of motion, no cervical lymphadenopathy. SKIN: n o suspicious lesions, warm and dry. HEART: n o murmurs, regular rate and rhythm, S1, S2 normal.? LUNGS: c lear to auscultation bilaterally. ABDOMEN: n ormal, bowel sounds present, soft, nontender, nondistended. EXTREMITIES: n o clubbing, cyanosis, 1-2+ edema/ruffin/ceap5,decreased pulses. NEUROLOGIC: n onfocal, motor strength normal upper and lower extremities, sensory exam intact. Assessment: * Assessment: 1. V aricose veins of bilateral lower extremities with pain - I83.813 (Primary) ?2. L ymphedema, not elsewhere classified - I89.0 3 . P ain in leg, unspecified - M79.606 4 . M orbid (severe) obesity due to excess calories - E66.01 Plan: * Treatment: 2. M orbid (severe) obesity due to excess calories Notes: On glp1a,per pcp * Follow Up: 4 Weeks * * Electronic signature of YESSENIA CALDERÓN MD on 11/28/2024 at 03:35 PM CDT Sign off status: Pending * Provider: Nisreen Calderón MD Date: 0 10/31/2024 Generated for Reji brown/Shabbir/eTransmitting on: 0 11/28/2024 03:35 PM CDT History and Physical Notes * HPI (History [...]
--- OUTSIDE RECORDS SUMMARY | 2024-11-28 15:35 | XMS_ITS ---
Author Organization [facility] Address [address] [place] [address] Care Team Providers Care Acrobatic Rigger Name Role Phone Precious Mcmahan Primary Care Provider Dawson Freedman Unavailable [phone] REASON FOR VISIT [facility], [...] orally 2 times a day Active Clobex Buckland 0.05 % (Prior Auth: Rx Ref#:[id number]) for 90 Not-Taking Cosentyx Sensoready Pen 150 MG/ML (PRIOR AUTH: RX REF#:[id number]) for 56 *Please review and pick correct strength-formulati on from Medispan options. If intended option is not shown, discontinue and re-order from Quick Search* Not-Taking Meloxicam 7.5 MG (Prior Auth: Rx Ref#:[id number]) for 90 Not-Taking ZyrTEC Allergy 10 MG 1 tab(s) orally once a day Not-Taking Myrbetriq 25 MG 1 tab(s) orally once a day Not-Taking Vital Signs Height 67 in 04/04/2024 Weight 234.8 lbs 04/04/2024 BMI 36.77 kg/m2 04/04/2024 Encounters Encounter Location Date Provider Diagnosis [facility] ([address]) [address] [address] 04/04/2024 Dawson Bolton Chronic fatigue, unspecified R53.82 [...] 7 mg Route: SQ Location: [facility] Frequency: weekly Lot Number/Expiration: Medication Source: [facility] Adverse Reaction: None Progress Notes * Kishan GOULD KDOB:1965 (59 yo F)Acc No.[id number]:04/04/2024 Weight Loss Patient: Kishan JERONIMO Provider: Sarita Bolton MD :1965 A ge:58 Y S ex:Female Date:04/04/2024 Address:[facility] Pcp:Precious Mcmahan Subjective: * Chief Complaints: * 1 . [facility], on tirzepatide, no side effects, appetite suppression pretty good . 2. Desired weight loss: 30 lbs for surgery, -1.8 lbs since last visit, -13.4 lbs total. 3. No history MTC or MEN2 or pancreatitis. 4. Concerned about future DM and OA. * Medical History: * Medications: T aking Diclofenac Sodium 75 MG Tablet Delayed Release 1 [...] 1 tablet PO daily , Not-Taking/PRN Clobex Buckland 0.05 % Liquid (Prior Auth: Rx Ref#:[id number]) , Not-Taking/PRN Meloxicam 7.5 MG Tablet (Prior Auth: Rx Ref#:[id number]) , Not-Taking/PRN Cosentyx Sensoready Pen 150 MG/ML SOLUTION (PRIOR AUTH: RX REF#:[id number]) , Notes to Pharmacist: *Please review and [...] spray(s) intranasally once a day Objective: * Vitals: H t: 67 in, Wt: 234.8 lbs, BMI:36.77Index. Assessment: * Assessment: 1. A bnormal weight gain - R63.5 (Primary) 2 . C hronic fatigue, unspecified - R53.82 3 . O ther fatigue - R53.83 4 . O ther malaise - R53.81 Plan: * Treatment: * Procedures: [facility]: Weight Management: tirzepatide I ndication w eight loss C oncentration 1 0 mg/mL V olume Administered 0 .7 mL D ose Administered 7 mg R oute S Q L ocation L UA F requency w eekly L ot Number/Expiration 0 -2024 M edication Source [facility] A dverse Reaction N one * Follow Up: 1 Week (Reason: GLP-1 Agonist Administration) * Billing Information: * Visit Code: * Procedure Codes: 00928 [facility] Weekly (tirzepatide) Tier 2. * Electronic signature of Dipti Bolton MD, FAAAAI on 11/28/2024 at 03:35 PM CDT Sign off status: Pending * Provider: Sarita Bloton MD Date: 0 04/04/2024 Generated for Reji brown/Shabbir/eTransmitting on: 0 11/28/2024 03:35 PM CDT
--- OUTSIDE RECORDS SUMMARY | 2024-11-28 15:36 | XMS_ITS | Clinical Summary ---
Author Organization [facility] Address [address] [place] [address] Care Team Providers Care Meter Engineer Name Role Phone Precious Mcmahan MD Primary Care Provider [phone] Unknown, Notinfile Unavailable Unavailable Allergies Active Allergy Reactions Criticality Noted Date Comments Cat Dander Other (See comments) Low 06/09/2023 Ciprofloxacin Urticaria Medium 02/05/2024 Dog Dander Other (See comments) Low 06/09/2023 Penicillins Nausea And Vomiting 10/09/2023 Sulfamethoxazole-Trimethoprim Urticaria Medium 2023 [place] Pollen Other (See comments) Low 06/09/2023 Medications [...] (10/21/2018): Added automatically from request for surgery [id number] Assessment & Plan (05/16/2024 11:54 AM CDT): Lesions resolved with Aldara. Return to clinic in 3 months. Signs and symptoms of recurrence reviewed. Laser ablation and or resection will be reserved for severe extensive lesions. 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 Encounters Date Type Department Care Team Description 09/05/2024 10:45 AM E LEARNING SPECIALIST Office Visit [facility] Obstetrics and Gynecology [address] [facility] [address] 13th [place] [address] [place] [address] Dominga Potts MD AIMEE III (vulvar intraepithelial neoplasia III) from Last 3 Months Immunizations Immunization Administration Dates Next Due Influenza, Quadrivalent, Hig [...] on file Legal Sex Female 3:48 AM E LEARNING SPECIALIST Gender Identity Not on file Sexual Orientation [...] Comments Blood Pressure 119/78 09/05/2024 10:56 AM E LEARNING SPECIALIST Pulse 78 09/05/2024 10:56 AM E LEARNING SPECIALIST Temperature 36.8 C (98.2 F) 09/05/2024 10:56 AM E LEARNING SPECIALIST Respiratory Rate 16 09/05/2024 10:5 6 AM E LEARNING SPECIALIST Oxygen Saturation 99% 05/16/2024 11: 17 AM CDT Inhaled Oxygen Concentration - - Weight 108.1 kg (238 lb 4.8 oz) 024 10:56 AM E LEARNING SPECIALIST Height 170.2 cm (5' 7.01 ) 09/05/2024 1 0:56 AM E LEARNING SPECIALIST Body Mass Index 37.31 09/05/2024 10:56 AM E LEARNING SPECIALIST Plan of Treatment Health Maintenance Due Date Last Done Comments Breast Cancer Screening-Mammogram 1965 Colon Cancer Screening-Colonoscopy 1965 Depression Screening 1965 Hepatitis B Screening 1984 Regular Well Visit/Exam 18-64 1984 Pneumococcal vaccine <65 (1 of 2 - PCV) 1985 Lung Cancer Screening 2016 Covid-19 Vaccine (2023-2 [...] DETECTION WITH GENOTYPING Routine 08/05/2023 9:30 AM E LEARNING SPECIALIST AIMEE III (vulvar intraepithelial neoplasia III) SERUM HEPATITIS C AB Routine 07/02/2015 4:53 PM CDT from Last 3 Months or Most Recently Relevant to Health Maintenance Results * High Risk HPV DNA Detection with Genotyping (Molecular component) (08/05/2023 9:30 AM E LEARNING SPECIALIST) HPV HR 16 Not Detected Not Detected [facility] HPV HR 18 Not Detected Not Detected [facility] HPV HR Non 16/18 Not Detected Not Detected [facility] Comment: Interpretive Data Nucleic acid amplification for detection of high-risk Human Papilloma virus (HPV) is performed by the Wilmer Juliet 6800 HPV test. This assay specifically detects HPV-16 and HPV-18 genotypes. The following HPV genotypes are detected as high-risk HPV: HPV-31, 33, 35, ,39, 45, 51, 52, 56, 58, 59, 66, and 68. This assay has been approved by the [place] Food and Drug Administration for detection of HPV in cervical specimens collected by a physician using an endocervical brush/spatula or cervical broom and placed in the ThinPrep Pap Test PreservCyt collection containers. The performance characteristics of this test have been verified by the [facility] Molecular Infectious Disease laboratory. Correlate with separately reported cytology results, as applicable. Interpretive data last revised 23 Endocervical 08/05/2023 9:30 AM E LEARNING SPECIALIST 08/06/2023 1:10 PM E LEARNING SPECIALIST Narrative [facility] - 08/07/2023 2:13 AM E LEARNING SPECIALIST Clinical history and diagnosis->AIMEE III Number of vials->1 Testing type->Screening Last menstrual period (date if known)->7 years ago us Blake Ely MD LAB BODY FLUIDS AND STOOLS ORD ERABLES Final Result [facility] Department [place] [address] * Serum Hepatitis C ab (07/02/2015 4:53 PM CDT) Pathologist [facility] HCV ab Negative Negative HISTORICAL RESULTS Serum 07/02/2015 4:53 PM CDT us Hanane Mcmullen MD LAB BLOOD ORDERABLES Final Resul t HISTORICAL RESULTS from Last 3 Months or Most Recently Relevant to Health Maintenance Insurance [facility] CLAIMS [employer] OPEN ACCESS [facility] CLAIMS [facility] CLAIMS Advance Directives For more information, please contact: [phone] * Full Code (Latest Code Status on File) Date Activated Date Inactivated Comments 07/10/2022 10:47 AM 07/10/2022 5:01 PM * Full Code Date Activated Date Inactivated Comments 11/15/2018 12:12 PM 11/15/2018 4:55 PM Care Teams Meter Engineer Relationship Specialty Start Date End Date Precious Mcmahan MD PCP - General Family Medicine 09/03/17 Unknown, Notinfile Referring Physician 10/23/20
--- OUTSIDE RECORDS SUMMARY | 2024-11-28 15:36 | XMS_ITS ---
Author Organization [facility] Address [address] [place], [place] [address] Care Team Providers Care Traffic Recorder Name Role Phone BARXTON SHEN MD Primary Care Provider Daniel Schultz Unavailable [phone] REASON FOR VISIT Cancel Appointment Request Encounters Encounter Location Date Provider Diagnosis [facility] [address], [address] [place], [place] [id number] 07/13/2023 Daniel Villegas PLAN OF TREATMENT No Information
--- OUTSIDE RECORDS SUMMARY | 2024-11-28 15:36 | XMS_ITS | Referral Summary ---
Author Organization [facility] Address [address] [place] [address] Care Team Providers Care Car Pick Up Driver Name Role Phone Precious Mcmahan MD Primary Care Provider [phone] Unknown, Notinfile Unavailable Unavailable Encounters Date Type Department Care Team Description 09/05/2024 10:45 AM DIRECTOR PROFESSIONAL SERVICES Office Visit [facility] Obstetrics and Gynecology [address] [place] [address] [place] [address] Dominga Potts MD AIMEE III (vulvar intraepithelial neoplasia III) from Last 3 Months Allergies Active Allergy Reactions Criticality Noted Date Comments Cat Dander Other (See comments) Low 06/09/2023 Ciprofloxacin Urticaria Medium 02/05/2024 Dog Dander Other (See comments) Low 06/09/2023 Penicillins Nausea And Vomiting 10/09/2023 Sulfamethoxazole-Trimethoprim Urticaria Medium 2023 [place] Pollen Other (See comments) Low 06/09/2023 Medications [...] (10/21/2018): Added automatically from request for surgery [id number] Assessment & Plan (05/16/2024 11:54 AM CDT): Lesions resolved with Aldara. Return to clinic in 3 months. Signs and symptoms of recurrence reviewed. Laser ablation and or resection will be reserved for severe extensive lesions. 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 Immunizations Immunization Administration Dates Next Due Influenza, [...] on file Legal Sex Female 3:48 AM DIRECTOR PROFESSIONAL SERVICES Gender Identity Not on file Sexual Orientation Not on file Last Filed Vital Signs Vital Sign Reading Time Taken Comments Blood Pressure 119/78 09/05/2024 10:56 AM DIRECTOR PROFESSIONAL SERVICES Pulse 78 09/05/2024 10:56 AM DIRECTOR PROFESSIONAL SERVICES Temperature 36.8 C (98.2 F) 09/05/2024 10:56 AM DIRECTOR PROFESSIONAL SERVICES Respiratory Rate 16 09/05/2024 10:5 6 AM DIRECTOR PROFESSIONAL SERVICES Oxygen Saturation 99% 05/16/2024 11: 17 AM CDT Inhaled Oxygen Concentration - - Weight 108.1 kg (238 lb 4.8 oz) 024 10:56 AM DIRECTOR PROFESSIONAL SERVICES Height 170.2 cm (5' 7.01 ) 09/05/2024 1 0:56 AM DIRECTOR PROFESSIONAL SERVICES Body Mass Index 37.31 09/05/2024 10:56 AM DIRECTOR PROFESSIONAL SERVICES Plan of Treatment Not on file Procedures Procedure Name Priority Date/Time Associated Diagnosis Comments HIGH RISK HPV DNA DETECTION WITH GENOTYPING Routine 08/05/2023 9:30 AM DIRECTOR PROFESSIONAL SERVICES AIMEE III (vulvar intraepithelial neoplasia III) SERUM HEPATITIS C AB Routine 07/02/2015 4:53 PM CDT from Last 3 Months or Most Recently Relevant to Health Maintenance Results * High Risk HPV DNA Detection with Genotyping (Molecular component) (08/05/2023 9:30 AM DIRECTOR PROFESSIONAL SERVICES) HPV HR 16 Not Detected Not Detected [facility] HPV HR 18 Not Detected Not Detected [facility] HPV HR Non 16/18 Not Detected Not Detected [facility] Comment: Interpretive Data Nucleic acid amplification for [...] this test have been verified by the [facility] Molecular Infectious Disease laboratory. Correlate with separately reported cytology results, as applicable. Interpretive data last revised 23 Endocervical 08/05/2023 9:30 AM DIRECTOR PROFESSIONAL SERVICES 08/06/2023 1:10 PM DIRECTOR PROFESSIONAL SERVICES Narrative [facility] - 08/07/2023 2:13 AM DIRECTOR PROFESSIONAL SERVICES Clinical history and diagnosis->AIMEE III Number of vials->1 Testing type->Screening Last menstrual period (date if known)->7 years ago us Blake Ely MD LAB BODY FLUIDS AND STOOLS ORD ERABLES Final Result [facility] Department [place] [address] * Serum Hepatitis C ab (07/02/2015 4:53 PM CDT) Pathologist [facility] HCV ab Negative Negative HISTORICAL RESULTS Serum 07/02/2015 4:53 PM CDT us Hanane Mcmullen MD LAB BLOOD ORDERABLES Final Resul t HISTORICAL RESULTS from Last 3 Months or Most Recently Relevant to Health Maintenance Insurance [facility] CLAIMS [facility] OPEN ACCESS [facility] CLAIMS Member Subscriber Plan / Payer (Ef fective 2017-Present) Name:Kishan Gould Relation to Subscriber:Spouse Name:HEATHER GOULD Date of :1966 (Home) (Work) Address: [address] [place] [address] Payer ID:[id number] (NAIC) Group ID:Not on file Type:[employer] Address: [address] [address] [facility] CLAIMS Advance Directives For more information, please contact: [phone] * Full Code (Latest Code Status on File) Date Activated Date Inactivated Comments 07/10/2022 10:47 AM 07/10/2022 5:01 PM * Full Code Date Activated Date Inactivated Comments 11/15/2018 12:12 PM 11/15/2018 4:55 PM Care Teams Car Pick Up Driver Relationship Specialty Start Date End Date Precious Mcmahan MD PCP - General Family Medicine 09/03/17 Unknown, Notinfile Referring Physician 10/23/20
--- OUTSIDE RECORDS SUMMARY | 2024-11-28 15:36 | XMS_ITS ---
Author Organization [facility] Address [address] [place], [place] [address] Care Team Providers Care Dust Operator Name Role Phone BRAXTON SHEN MD Primary Care Provider UnavailDaniel Merrill Unavailable [phone] Lauren Landon Unavailable [phone] Encounters Encounter Location Date Provider Diagnosis [facility] [address], [address] [place], [place] [id number] 07/16/2023 Lauren Landon PLAN OF TREATMENT No Information
--- OUTSIDE RECORDS SUMMARY | 2024-11-28 15:36 | XMS_ITS | Patient Health Record ---
Author Organization [facility] Address [address] [address] Care Team Providers Care Citizenship Teacher Name Role Phone Precious Mcmahan MD Primary Care Provider TRACEE Kaye Unavailable [phone] Allergies Allergen (clinical drug ingredient) Drug/Non Drug Allergy documented on EMR Reaction Allergy Type Onset Date Status sulfameth (uncoded) Unknown Allergy Active ciprofloxacin Ciprofloxacin Unknown Drug Allergy Active trimethoprim Trimethoprim Unknown Drug Allergy A ctive Reason For Referral No Information Medications Medication SIG (Take, Route, Frequency, Duration) Notes Start Date End Date Status Solifenacin Succinate 10 MG Oral for 90 Days Active Omeprazole 20 MG Oral for 90 Days Active Otezla 30 MG 1 tablet Orally Twic e a day Active Multi Vitamin - 1 tablet Orally Once a day for 30 day(s) 02/29/2024 Active Imiquimod 5 % External for 28 Days Active diphenhydrAMINE HCl 25 MG 1 capsule at b edtime as needed Orally Once a day for 30 day(s) 02/29/2024 Active Sertraline HCl 100 MG 1 tablet Orally On ce a day Active Ketoconazole 2 % External for 25 Days Active oxyBUTYnin Chloride ER 5 MG Oral for 90 Days Active Mupirocin Calcium 2 % External for 15 Days Active Sulfamethoxazole-Trimethopri m 800-160 MG Oral for 10 Days Active predniSONE 10 MG Oral for 10 Days Active Ciprofloxacin HCl 500 MG Oral for 5 Days Active Social History Tobacco Use: Social [...] Status Risk Notes Problem Morbid obesity (disorder) (823521998) Morbid (severe) obesity due to excess calories (E66.01) Active confirmed Problem Obesity due to excess calories (695588885) Other obesity due to excess calories (E66.09) Active confirmed Problem Pain co-occurrent and due to varicose veins of bilateral legs (58970810795515 100) Varicose veins of bilateral lower extremities with pain (I83.813) Active confirmed Problem Lymphedema (757309204) Lymphedema, not elsewhere classified (I89.0) Active confirmed Vital Signs Heart Rate 88 /min 10/31/2024 Respiratory Rate 16 /min 10/31/2024 Blood pressure diastolic 64 mm Hg 10/31/2024 Height 67 in 10/31/2024 Blood pressure systolic 132 mm Hg 10/31/2024 Weight 234 lbs 10/31/2024 BMI 36.65 kg/m2 10/31/2024 Encounters Encounter Location Date Provider Diagnosis [address] [address] 04/08/2024 TRACEE STEPHANE Varicose veins of bilateral lower extremities with pain I83.813 ; Lymphedema, not elsewhere classified I89.0 and Pain in leg, unspecified M79.[address] [address] 05/02/2024 TRACEE STEPHANE Varicose veins of bilateral lower extremities with pain I83.813 ; Lymphedema, not elsewhere classified I89.0 and Pain in leg, unspecified M79.[address] [id number] 07/04/2024 TRACEE STEPHANE [address] [address] 10/31/2024 TRACEE STEPHANE Varicose veins of bilateral lower extremities with pain I83.813 ; Lymphedema, not elsewhere classified I89.0 ; Pain in leg, unspecified M79.606 and Morbid (severe) obesity due to excess calories E66.[address] [address] 02/29/2024 TRACEE STEPHANE Other obesity due to excess calories E66.09 ; Pain in leg, unspecified M79.606 ; Varicose veins of bilateral lower extremities with pain I83.813 and Lymphedema, not elsewhere classified I89.0 [facility] [address] [address] 03/11/2024 TRACEE STEPHANE Varicose veins of bilateral lower extremities with pain I83.813 ; Lymphedema, not elsewhere classified I89.0 and Pain in leg, unspecified M79.[address] [address] 03/28/2024 TRACEE STEPHANE Varicose veins of bilateral lower extremities with pain I83.813 ; Lymphedema, not elsewhere classified I89.0 and Pain in leg, unspecified M79.[address] [address] 08/29/2024 TRACEE STEPHANE Varicose veins of bilateral lower extremities with pain I83.813 ; Lymphedema, not elsewhere classified I89.0 ; Pain in leg, unspecified M79.606 and Morbid (severe) obesity due to excess calories E66.01 [facility] [address] [address] 02/29/2024 TRACEE STEPHANE [facility] [address] [facility] [address] [address] 03/14/2024 TRACEE STEPHANE [facility] [address] [facility] [address] [address] 04/08/2024 TRACEE STEPHANE [facility] [address] [address] 04/08/2024 TRACEE STEPHANE [facility] [address] [facility] [address] [place] [address] 08/29/2024 TRACEE CALDERÓN [address] [address] 10/31/2024 TRACEE CALDERÓN [facility] [address] [facility] [address] [place] [address] 10/31/2024 TRACEE CALDERÓN Assessments Encounter Date Diagnosis (ICD [...] Lymphedema, not elsewhere classified (ICD-10 - I89.0) 04/08/2024 Varicose veins of bilateral lower extremities with pain (ICD-10 - I83.813) 10/31/2024 Varicose veins of bilateral lower extremities with pain (ICD-10 - I83.813) has more pains,suspect the large spider veins causing those,both legs injected,legs better,,used 0.5% jazmyn,no issues 10/31/2024 Lymphedema, not elsewhere classified (ICD-10 - I89.0) 04/08/2024 Lymphedema, not elsewhere classified (ICD-10 - I89.0) 08/29/2024 Pain in leg, unspecified (ICD-10 - M79.606) 05/02/2024 Lymphedema, not elsewhere classified (ICD-10 - [...] 20 cc used of 0.3 jazmyn,no issues 10/31/2024 Pain in leg, unspecified (ICD-10 - M79.606) 10/31/2024 Morbid (severe) obesity due to excess calories (ICD-10 - E66.01) On glp1a,per pcp Plan Of Treatment Next Appt Details Provider Name:TRACEE BARTON, 12/19/2024 10:00:00 AM, [address] [facility], [address] [place] [address], [id number], Insurance Providers Payer Name Payer Address Payer Phone Subscriber Number Group Number Insured Name Patient Relationship to Insured Coverage Start Date Coverage End Date [facility] [address] [place] [address] Kishan Rodriguez Self - patient is the insured Medical (General) History Medical History History ICD Code obesity psoriasis Arthritis
--- OUTSIDE RECORDS SUMMARY | 2024-11-28 15:36 | XMS_ITS ---
Author Organization [facility] Address [address] [facility] [address] [place] [address] Care Team Providers Care Anesthesiologist Name Role Phone Precious Mcmahan MD Primary Care Provider TRACEE Kaye [phone] REASON FOR VISIT update Encounters Encounter Location Date Provider Diagnosis [facility] [address] [facility] [address] [place] [address] 10/31/2024 TRACEE CALDERÓN Plan Of Treatment Next Appt Details Provider Name:TRACEE BARTON, 12/19/2024 10:00:00 AM, [address] [facility], [place], [place], [id number], Progress Notes * BRYANNASofiachikaDOB:1965 ( 59 yo F)Acc No.[id number]:10/31/2024 Patient: Kishan JERONIMO :1965 A ge:59 Y S ex:Female Address:[address], [place] [address] * true * Date: Generated for Printi ng/Faxing/eTransmitting on: 0 11/28/2024 03:36 PM CDT
--- OUTSIDE RECORDS SUMMARY | 2024-11-28 15:36 | XMS_ITS ---
Author Organization [facility] Address [address] [place] [address] Care Team Providers Care Scow Derrick Operator Name Role Phone Precious Mcmahan Primary Care Provider Dawson Freedman Unavailable [phone] REASON FOR VISIT [facility], [...] PO daily for 30 09/21/2018 Active Clobex [place] 0.05 % (Prior Auth: Rx Ref#:[id number]) for 90 Not-Taking Meloxicam 7.5 MG (Prior Auth: Rx Ref#:[id number]) for 90 Not-Taking ZyrTEC Allergy 10 MG [...] Sensoready Pen 150 MG/ML (PRIOR AUTH: RX REF#:[id number]) for 56 *Please review and pick correct strength-formulati on from [employer] options. If intended option is not shown, discontinue and re-order from Quick Search* Not-Taking Vital Signs Height 67 in 04/11/2024 Weight 234.8 lbs 04/11/2024 BMI 36.77 kg/m2 04/11/2024 Encounters Encounter Location Date Provider Diagnosis [facility] [place] ([address]) [address] [address] 04/11/2024 Dawson Bolton Chronic fatigue, unspecified R53.82 [...] MIGUEL Frequency: weekly Lot Number/Expiration: Medication Source: ibeatyou Adverse Reaction: None Progress Notes * Kishan GOULD KDOB:1965 (59 yo F)Acc No.[id number]:04/11/2024 Weight Loss Patient: Donato Kishan GILL Provider: Sarita Bolton MD :1965 A ge:58 Y S ex:Female Date:04/11/2024 Address:[facility] [address], [facility] Pcp:Precious Mcmahan Subjective: * Chief Complaints: * [...] 1 tablet PO daily , Not-Taking/PRN Clobex [place] 0.05 % Liquid (Prior Auth: Rx Ref#:[id number]) , Not-Taking/PRN Meloxicam 7.5 MG Tablet (Prior Auth: Rx Ref#:[id number]) , Not-Taking/PRN Cosentyx Sensoready Pen 150 MG/ML SOLUTION (PRIOR AUTH: RX REF#:[id number]) , Notes to Pharmacist: *Please review and [...] mg R oute S Q L ocation R UA F requency w eekly L ot Number/Expiration 0 -2024 M edication Source [facility] A dverse Reaction N one * Follow Up: 1 Week (Reason: GLP-1 Agonist Administration) * Billing Information: * Visit Code: * Procedure Codes: 09126 [facility] - Weekly (tirzepatide) Tier 2. * Electronic signature of Dipti Bolton MD, FAAAAI on 11/28/2024 at 03:36 PM CDT Sign off status: Pending * Provider: Sarita Bolton MD Date: 0 04/11/2024 Generated for Reji brown/Shabbir/eTransmitting on: 0 11/28/2024 03:36 PM CDT
--- OUTSIDE RECORDS SUMMARY | 2024-11-28 15:36 | XMS_ITS | Patient Health Record ---
Author Organization [facility] Address [address] [place] [address] Care Team Providers Care Complex Director Name Role Phone Precious Mcmahan Primary Care Provider UnavailDawson Clements Unavailable [phone] [employer], Provider Unavailable Unavailab le Reason For [...] PO daily for 30 09/21/2018 Active Clobex [place] 0.05 % (Prior Auth: Rx Ref#:[id number]) for 90 Not-Taking Meloxicam 7.5 MG (Prior Auth: Rx Ref#:[id number]) for 90 Not-Taking Diclofenac Sodium 75 MG 1 tab(s) orally 2 times a day Active Cosentyx Sensoready Pen 150 MG/ML (PRIOR AUTH: RX REF#:[id number]) for 56 *Please review and pick correct strength-formulati on from [employer] options. If intended option is not shown, discontinue and re-order from Quick Search* Not-Taking Sertraline HCl 100 MG 1 tab(s) orally once a day Active Immunizations Vaccine Route Administration Date Status Comme nts Fluzone Quadrivalent Unknown 07/14/2017 Administered H1N1 Influenza Unknown 06/07/2015 Administered Portal I nformation Influenza Unknown 07/19/2015 Administered NOC Fluzone Quadrivalent Unknown 09/20/2018 Refused NOC Tdap Unknown 07/18/2011 Administered Social History Tobacco Use: Social History Observation Description Date Details (start date - stop date) Former Smoker NA - NA Smoking Smart Form: Question Answer Notes Are you a: former smoker How long it has been since you last smoked? 1-5 years Problems Problem Type SNOMED Code ICD Code Onset Dates Problem Status W/U Status Risk Notes Problem Chronic allergic conjunctivitis (56725291) Other chronic allergic conjunctivitis (H10.45) Active confirmed Problem Allergic rhinitis caused by pollen (disorder) (21076241) Allergic rhinitis due to pollen (J30.1) Active confirmed Problem Allergic rhinitis (75529157) Other allergic rhinitis (J30.89) Active confirmed Problem Chronic fatigue syndrome (disorder) (49685667) Chronic fatigue, unspecified (R53.82) Active confirmed Problem Allergic rhinitis caused by animal hair and dander (825984687538921) Allergic rhinitis due to animal (cat) (dog) hair and dander (J30.81) Active confirmed Problem Nasal congestion (34115939) Nasal congestion (R09.81) Active confirmed Problem Shortness of breath (659171747) Shortness of breath (R06.02) Active confirmed Vital Signs Respiratory Rate 16 /min 01/27/2024 Oximetry 96 % 01/27/2024 Blood pressure diastolic 69 mm Hg 01/27/2024 Height 67 in 04/18/2024 Blood pressure systolic 102 mm Hg 01/27/2024 Weight 234.0 lbs 04/18/2024 BMI 36.65 kg/m2 04/18/2024 Encounters Encounter Location Date Provider Diagnosis [facility] [place] ([address]) [address] [place] [address] 02/04/2024 Dawsonmichelle Bolton Chronic fatigue, unspecified R53.82 ; Abnormal weight gain R63.5 ; Other fatigue R53.83 and Other malaise R53.81 [facility] [place] ([address]) [address] [place] [address] 02/15/2024 Dawson Win Chronic fatigue, unspecified R53.82 ; Abnormal weight gain R63.5 ; Other fatigue R53.83 and Other malaise R53.[address] [address] 02/20/2024 Provider [facility] [place] ([address]) [address] [place] [address] 02/22/2024 Dawson Hoang Chronic fatigue, unspecified R53.82 ; Abnormal weight gain R63.5 ; Other fatigue R53.83 and Other malaise R53.81 [facility] ([address]) [address] [place] [address] 02/29/2024 Dawson Hoang Chronic fatigue, unspecified R53.82 ; Abnormal weight gain R63.5 ; Other fatigue R53.83 and Other malaise R53.81 [facility] ([address]) [address] [place] [address] 03/21/2024 Dawson Win Chronic fatigue, unspecified R53.82 ; Abnormal weight gain R63.5 ; Other fatigue R53.83 and Other malaise R53.81 [facility] [place] ([address]) [address] [place] [address] 03/28/2024 Dawson Win Chronic fatigue, unspecified R53.82 ; Abnormal weight gain R63.5 ; Other fatigue R53.83 and Other malaise R53.81 [facility] ([address]) [address] [place] [address] 04/04/2024 Dawson Win Chronic fatigue, unspecified R53.82 ; Abnormal weight gain R63.5 ; Other fatigue R53.83 and Other malaise R53.81 [facility] [place] ([address]) [address] [place] [address] 04/11/2024 Dawson Bolton Chronic fatigue, unspecified R53.82 ; Abnormal weight gain R63.5 ; Other fatigue R53.83 and Other malaise R53.81 [facility] ([address]) [address] [place] [address] 04/18/2024 Dawson Bolton Chronic fatigue, unspecified R53.82 ; Abnormal weight gain R63.5 ; Other fatigue R53.83 and Other malaise R53.81 [facility] ([address]) [address] [place] [address] 01/27/2024 Dawson Bolton Chronic fatigue, unspecified R53.82 ; Abnormal weight gain R63.5 ; Other fatigue R53.83 and Other malaise R53.81 [facility] ([address]) [address] [place] [address] 01/28/2024 Dawson Bolton Chronic fatigue, unspecified R53.82 ; Abnormal weight gain R63.5 ; Other fatigue R53.83 and Other malaise R53.81 [facility] ([address]) [address] [place] [address] 03/07/2024 Dawson Bolton Chronic fatigue, unspecified R53.82 ; Abnormal weight gain R63.5 ; Other fatigue R53.83 and Other malaise R53.81 [facility] ([address]) [address] [place] [address] 03/14/2024 Dawson Bolton Chronic fatigue, unspecified R53.82 ; Abnormal weight gain R63.5 ; Other fatigue R53.83 and Other malaise R53.81 Assessments Encounter Date Diagnosis (ICD Code) Assessment Notes Treatment Notes Treatment Clinical Notes Section Notes 01/27/2024 Chronic fatigue, unspecified (ICD-10 - R53.82) 01/27/2024 Abnormal weight gain (ICD-10 - R63.5) Needs thyroid and hormone optimization for adequate, healthy weight loss. Dietary measures including protein needs and hydration discussed. 01/28/2024 Chronic fatigue, unspecified (ICD-10 - R53.82) 01/28/2024 Abnormal weight gain (ICD-10 - R63.5) 02/04/2024 Chronic fatigue, unspecified (ICD-10 - R53.82) 02/04/2024 Abnormal weight gain (ICD-10 - R63.5) 02/15/2024 Chronic fatigue, unspecified (ICD-10 - R53.82) 02/15/2024 Abnormal weight gain (ICD-10 - R63.5) 02/22/2024 Chronic fatigue, unspecified (ICD-10 - R53.82) 02/22/2024 Abnormal weight gain (ICD-10 - R63.5) 02/29/2024 Chronic fatigue, unspecified (ICD-10 - R53.82) 02/29/2024 Abnormal weight gain (ICD-10 - R63.5) 03/07/2024 Chronic fatigue, unspecified (ICD-10 - R53.82) 03/07/2024 Abnormal weight gain (ICD-10 - R63.5) 03/14/2024 Chronic fatigue, unspecified (ICD-10 - R53.82) 03/14/2024 Abnormal weight gain (ICD-10 - R63.5) 03/21/2024 Chronic fatigue, unspecified (ICD-10 - R53.82) 03/21/2024 Abnormal weight gain (ICD-10 - R63.5) 03/28/2024 Chronic fatigue, unspecified (ICD-10 - R53.82) 03/28/2024 Abnormal weight gain (ICD-10 - R63.5) 04/04/2024 Chronic fatigue, unspecified (ICD-10 - R53.82) 04/04/2024 Abnormal weight gain (ICD-10 - R63.5) 04/11/2024 Chronic fatigue, unspecified (ICD-10 - R53.82) 04/11/2024 Abnormal weight gain (ICD-10 - R63.5) 04/18/2024 Chronic fatigue, unspecified (ICD-10 - R53.82) 04/18/2024 Abnormal weight gain (ICD-10 - R63.5) 04/18/2024 Other fatigue (ICD-10 - R53.83) 04/11/2024 Other fatigue (ICD-10 - R53.83) 04/04/2024 Other fatigue (ICD-10 - R53.83) 03/28/2024 Other fatigue (ICD-10 - R53.83) 03/21/2024 Other fatigue (ICD-10 - R53.83) 03/14/2024 Other fatigue (ICD-10 - R53.83) 03/07/2024 Other fatigue (ICD-10 - R53.83) 02/29/2024 Other fatigue (ICD-10 - R53.83) 02/22/2024 Other fatigue (ICD-10 - R53.83) 02/15/2024 Other fatigue (ICD-10 - R53.83) 02/04/2024 Other fatigue (ICD-10 - R53.83) 01/28/2024 Other fatigue (ICD-10 - R53.83) 01/27/2024 Other fatigue (ICD-10 - R53.83) 01/27/2024 Other malaise (ICD-10 - R53.81) 01/28/2024 Other malaise (ICD-10 - R53.81) 02/04/2024 Other malaise (ICD-10 - R53.81) 02/15/2024 Other malaise (ICD-10 - R53.81) 02/22/2024 Other malaise (ICD-10 - R53.81) 02/29/2024 Other malaise (ICD-10 - R53.81) 03/07/2024 Other malaise (ICD-10 - R53.81) 03/14/2024 Other malaise (ICD-10 - R53.81) 03/21/2024 Other malaise (ICD-10 - R53.81) 03/28/2024 Other malaise (ICD-10 - R53.81) 04/04/2024 Other malaise (ICD-10 - R53.81) 04/11/2024 Other malaise (ICD-10 - R53.81) 04/18/2024 Other malaise (ICD-10 - R53.81) Plan Of Treatment No Information Insurance Providers Payer Name Payer Address Payer Phone Subscriber Number Group Number Insured Name Patient Relationship to Insured Coverage Start Date Coverage End Date [employer] [address] [place] [address] [id number] David Rodriguez Spouse - patient is the spouse of the insured Standard [address] [place] [address] [phone] [id number] David Rodriguez Spouse - patient is the spouse of the insured Medical (General) History Medical History History ICD Code Rheumatoid Arthritis Psoriasis Swelling of Extremities Allergic rhinitis due to pollen Allergic rhinitis due to animal (cat) (d og) hair and dander Other allergic rhinitis Other chronic allergic conjunctivitis Nasal congestion Surgical History Surgery Date(Month/Year) 1989 1993 vulvar/AIMEE four surgeries from [id number] knee surgery 05/01/2016 Hospitalization History Reason Date(Month/Year) Only for listed surgeries
--- OUTSIDE RECORDS SUMMARY | 2024-11-28 15:36 | XMS_ITS ---
Author Organization [facility] Address [address] [place] [address] Care Team Providers Care Faith Doctor Name Role Phone Precious Mcmahan Primary Care Provider Dawson Freedman Unavailable [phone] REASON FOR VISIT [facility], [...] Sensoready Pen 150 MG/ML (PRIOR AUTH: RX REF#:[id number]) for 56 *Please review and pick correct [...] PO daily for 30 09/21/2018 Active Clobex [place] 0.05 % (Prior Auth: Rx Ref#:[id number]) for 90 Not-Taking Meloxicam 7.5 MG (Prior Auth: Rx Ref#:[id number]) for 90 Not-Taking Otezla 30 MG 1 [...] Provider Diagnosis [facility] [place] ([address]) [address] [address] 04/18/2024 Dawson Bolton Chronic fatigue, unspecified R53.82 [...] abdomen Frequency: weekly Lot Number/Expiration: Medication Source: [facility] Adverse Reaction: None Progress Notes * Kishan GOULD KDOB:1965 (59 yo F)Acc No.[id number]:04/18/2024 Weight Loss Patient: Kishan JERONIMO Provider: Sarita Bolton MD :1965 A ge:58 Y S ex:Female Date:04/18/2024 Address:[address], [facility] Pcp:Precious Mcmahan Subjective: * Chief Complaints: * [...] 1 tablet PO daily , Not-Taking/PRN Clobex [place] 0.05 % Liquid (Prior Auth: Rx Ref#:[id number]) , Not-Taking/PRN Meloxicam 7.5 MG Tablet (Prior Auth: Rx Ref#:[id number]) , Not-Taking/PRN Cosentyx Sensoready Pen 150 MG/ML SOLUTION (PRIOR AUTH: RX REF#:[id number]) , Notes to Pharmacist: *Please review and [...] * Vitals: H t: 67 in, Wt: 234.0 lbs, BMI:36.65Index. Assessment: * Assessment: 1. A bnormal weight gain - R63.5 (Primary) 2 . C hronic fatigue, unspecified - R53.82 3 . O ther fatigue - R53.83 4 . O ther malaise - R53.81 Plan: * Treatment: * Procedures: Q uell: Weight Management: tirzepatide I ndication w eight loss C oncentration 1 0 mg/mL V olume Administered 0 .75 mL D ose Administered 7 .5 mg Increase dosing due to lack of perceived benefit R oute S Q L ocation R ight abdomen F requency w eekly L ot Number/Expiration 0 -2024 M edication Source H [facility] A dverse Reaction N one * Follow Up: 1 Week (Reason: GLP-1 Agonist Administration) * Billing Information: * Visit Code: * Procedure Codes: 86313 [facility] - Weekly (tirzepatide) Tier 2. * Electronic signature of Dipti Bolton MD, FAAAAI on 11/28/2024 at 03:35 PM CDT Sign off status: Pending * Provider: Sarita Bolton MD Date: 0 04/18/2024 Generated for Printi ng/Shabbir/eTransmitting on: 0 11/28/2024 03:35 PM CDT
--- OUTSIDE RECORDS SUMMARY | 2024-11-28 15:37 | XMS_ITS ---
Author Organization [facility] Address [address] [address] Care Team Providers Care Alum Plant Operator Name Role Phone Precious Mcmahan MD Primary Care Provider TRACEE Kaye Unavailable [phone] REASON FOR VISIT payment/ office visit Encounters Encounter Location Date Provider Diagnosis [address] [address] 10/31/2024 TRACEE CALDERÓN Plan Of Treatment Next Appt Details Provider Name:TRACEE BARTON, 12/19/2024 10:00:00 AM, [address] [facility], [place], [place], [phone], Progress Notes * Kishan GOULDDOB:1965 ( 59 yo F)Acc No.[id number]:10/31/2024 Patient: Kishan JERONIMO :1965 A ge:59 Y S ex:Female Address:[address], [place] [address] * true * Date: Generated for Printi ng/Faxing/eTransmitting on: 0 11/28/2024 03:36 PM CDT
--- OUTSIDE RECORDS SUMMARY | 2024-11-28 15:37 | XMS_ITS | Encounter Summary ---
Author Organization [facility] Address [address] [place] [address] Phone Care Team Providers Care Complex Care Nurse Practitioner Name Role Phone Precious Mcmahan MD Primary Care Provider [phone] Unknown, Notinfile Unavailable Unavailable Encounter Details Date Type Department Care Team (Late st Contact Info) Description 12/04/2017 Orders Only [facility] ProviderSandra MD [address] [place] [address] Social History Tobacco Use Types Packs/Day Years Used Date Smoking Tobacco: Former Smokeless Tobacco: Never Alcohol Use Standard Drinks/Week Comments No 0 (1 standard drink = 0.6 oz pur e alcohol) Comments Unknown Sex and Gender Information Value Date Recorded Sex Assigned at Not on file 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
--- OUTSIDE RECORDS SUMMARY | 2024-11-28 15:37 | XMS_ITS | Continuity of Care Document ---
Author Organization [facility] Address [address] [place] [address] utive [facility] [address] [place] [address] Phone Care Team Providers Care Foundation Assistant Name Role Phone Rubens aZpata Unavailable Unavailable Procedures Procedure Date Office/outpatient Visit, Est Office/outpatient Visit, New Advance Directives Directive Yes / No Effective Date File Name No Information Encounters Encounter Description Practice Location Reason(s) For Visit Diagnoses Date Provider Providers Copied on Encounter Office/outpat ient Visit, Est [facility], [address] [place] [address] [address], [place], [place], [id number], [place] tel:[phone] SEC [facility] No Information 0 Krishnasamy Rubens. [address], [address], [place]. tel:[phone] Office/outpat ient Visit, [facility], [address] [place] [address] [address], [place], [place], [id number], tel:[phone] [facility] No Information 0 Krishnasamy Rubens. [address] [address], [place], [address], [place]. tel:[phone] Family History Family Member Type Diagnosis Age At Onset No Information Payers Payer name Insurance type Covered libertarian ID Authoriza tion(s) No Information Social History Type Description Quantity Date Captured Comments Sex Female Smoking Status No Information Chief Complaint And Reason For Visit No Information Reason For Referral Reason For Referral No Information History Of Present Illness Encounter Date Complaint History Of Prese nt Illness No Information Functional Status Date Functional Assessmen t No Information Instructions Date Instruction Additional Infor mation No Information Assessments Type Assessment Date No Information Patient Care Teams Name Effective Dates (start - stop) Status Members No Information
--- OUTSIDE RECORDS SUMMARY | 2024-11-28 15:37 | XMS_ITS | Patient Health Record ---
Author Organization [facility] Address 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 Name Role Phone BRAXTON SHEN MD Primary Care Provider Leah muniz Daniel Villegas Unavailable [phone] ALLERGIES No Known Allergies REASON FOR REFERRAL No Information MEDICATIONS Medication SIG (Take, Route, Fr equency, Duration) Notes Start Date End Date Status Vitamin D3 10 mcg 1 tab(s) orally once a day Active iron oral Active phentermine 37.5 mg 1 cap(s) orally once a day Active Vitamin B12 250 mcg 1 tab(s) orally once a day Active Otezla 30 mg orally twice a day Active diphenhydrAMINE 25 mg 1 cap(s) orally every 6 hours Active nabumetone 750 mg 1 tab(s) orally twic e a day for 30 day(s) Active Tylenol 325 mg 2 tab(s) orally every 4 hours Active SOCIAL HISTORY Tobacco Use: Social History Observation Description Date Details (start date - stop date) Former Smoker NA - NA Sex Assigned At : Social History Observation Description Sex Assigned At Unknown Tobacco Use: Question Answer Notes Smoking Status former smoker PROBLEMS Problem Type ICD Code Onset Dates Problem Status W/U Status Risk SNOMED Code Notes Problem Osteoarthritis of multiple joints, unspecified osteoarthritis type (M15.9) Active confirmed 330783276 Problem Psoriasis (L40.9) Active confirmed 9014 002 PLAN OF TREATMENT Pending Test Test Name Order Date X ray : Hand left- outside order 023 X ray : Hand right- outside order 2022 X ray : SI joints- outside order 023 Insurance Providers Payer Name Payer Address Payer Phone Subscriber Number Group Number Insured Name Patient Relationship to Insured Coverage Start Date Coverage End Date [employer] [address] [place] [address] [id number] David Rodriguez Spouse - patient is the spouse of the insured 2 MEDICAL (GENERAL) HISTORY Medical History History ICD Code bruises easily psoriasis swollen glands swelling of ankles/feet abnormal pap smear varicose veins frequent urination Surgical History Surgery Date(Month/Year) laser surgery 2021
--- OUTSIDE RECORDS SUMMARY | 2024-11-28 15:37 | XMS_ITS | Clinical Summary ---
Author Organization [facility] Address [address] [place] [address] Care Team Providers Care Financial Planner Name Role Phone Precious Mcmahan MD Primary Care Provider [phone] Source Comments [facility],non-owned Affiliates and Associated Physician Practices is amultiple site organization consisting of ambulatory clinics and hospital sitesin [place], [place] and [place]. This disclosure is being madepursuant to the Care Everywhere program and may not contain all information available regarding this patient. Last updated 18.[facility] Allergies Active Allergy Reactions Criticality Noted Date [...] daily Active Cholecalciferol (Vitamin D3) 1.25 MG (32515 UT) Take by mouth once daily Active ascorbic acid (Vitamin C) 250 MG tablet Take 4 (four) tablets by mouth once daily Active MAGNESIUM CITRATE PO Take 250 mg by mouth once daily Active azelastine (Astelin) 0.1 % nasal spray [place] 1 (one) spray into each nostril 2 times daily Active fluticasone propionate (Flonase) 50 MCG/ACT nasal spray [place] 2 (two) sprays into each nostril once [...] 89 02/05/2024 3:23 PM CDT Temperature 36.4 C (97.6 F) 12/31/2023 11:09 AM CDT Respiratory Rate 10 12/31/2023 12:15 PM CDT Oxygen Saturation 97% 12/31/2023 12:15 PM CDT Inhaled Oxygen Concentration - - Weight 108.9 kg (240 lb) 02/05/2024 3:23 PM CDT Height 170.2 cm (5' 7 ) 02/05/2024 3:23 PM CDT Body Mass Index 37.59 02/05/2024 3:23 PM CDT Plan of Treatment Health Maintenance Due Date Last Done Comments COLOGUARD (AGES 45-75) - COLON CA SCREENING 1966 [...] complete this topic MENINGOCOCCAL (Group B) VACCINE SHARED DECISION-MAKING Aged Out No longer eligible based on patient's age to complete this topic MENINGOCOCCAL GROUPS A/C/Y/W VACCINE Aged Out No longer eligible based [...] - 26 mg/dL 12/17/2023 11:[address] [facility] Creatinine 0.80 0.56 - 0.96 mg/dL 12/17/2023 11:30 AM [facility] Sodium 144 136 - 145 mmol/L 12/17/2023 11:30 AM [facility] Potassium 4.3 3.5 - 4.5 mmol/L 12/17/2023 11:30 AM [facility] Chloride 107 98 - 107 mmol/L 12/17/2023 11:30 AM [facility] CO2 26 22 - 29 mmol/L 12/17/2023 11:30 AM [facility] Glucose 94 70 - 115 mg/dL 12/17/2023 11:30 AM [facility] Calcium 9.8 8.4 - 10.2 mg/dL 12/17/2023 11:30 AM [facility] Anion Gap 11 6 - 16 12/17/2023 11:30 AM [facility] BUN/Creatinine Ratio 23 7 - 23 12/17/2023 11:30 AM [facility] Osmolality Calculated 300(H) 275 - 295 mOsm/kg 12/17/2023 11:30 AM [facility] eGFR by CKD-EPI 86(L) >=90 mL/min/1.7 3 m2 12/17/2023 11:30 AM [facility] Blood BLOOD SPECIMEN / Unknown Lab Venipuncture / Unknown 12/17/2023 9:54 AM CDT 12/17/2023 10:17 AM T Stacey Auguste INSPECTOR AND S[facility]IS[facility] INTERVENTION SPECIALIST [facility] - [facility] ORDERABLES [facility] [address] [place] [address], [facility] [phone] from Last 3 Months or Most Recently Relevant to Health Maintenance Care Teams Financial Planner Relationship Specialty Start Date End Date Precious Mcmahan MD [address] [place] [address] PCP - General Family Medicine 12/09/23
--- OUTSIDE RECORDS SUMMARY | 2024-11-28 15:37 | XMS_ITS ---
Author Organization [facility] Address [address] [place], [place] [address] Care Team Providers Care Wire Preparation Machine Tender Name Role Phone BRAXTON SHEN MD Primary Care Provider Daniel Schultz Unavailable [phone] REASON FOR VISIT Results Encounters Encounter Location Date Provider Diagnosis [facility] [address] [place], [place] [id number] 07/13/2023 Daniel Villegas PLAN OF TREATMENT No Information
== END 2024-11-28 13:40 | disposition home or self-care (01) ==
LOC: ANHIMG 13:39
PROVIDERS: PCP Family Medicine; Visit Provider Family Medicine
DX: Z12.31 Encounter for screening mammogram for malignant neoplasm of breast (principal)
CPT/HCPCS: 77063; 77067

== ENCOUNTER 2024-12-06 11:00 | Outpatient (RCR) | payer OTHER, SELFPAY ==
--- NOTE | 2024-10-10 09:56 | OPREHPOC ---
Outpatient Therapy Plan of Care This is a Multidisciplinary Plan of Care that may contain components documented by all disciplines (PT, OT, and ST.) PT Problem 1 PT Problem #1 Knowledge Deficit PT Goal 1 Goal / Goal Update *indep with HEP Target Visit 10 PT Goal 2 Goal / Goal Update * correct gait pattern with cane or no device Target Visit 10 PT Problem 2 PT Problem #2 Pain PT Goal 1 Goal / Goal Update decrease pain L knee, to increase activity level: pain rating at worst of 10 Target Visit 10 PT Goal 2 Goal / Goal Update * pt report able to sleep without awakening due to knee pain Target Visit 10 PT Problem 3 PT Problem #3 Impaired Flexibility PT Goal 1 Goal / Goal Update increase L knee active ROM/flexibility to improve gait, stair and transfer sit/stand skills: active in sittin' to 115' Target Visit 10 PT Problem 4 PT Problem #4 Impaired Functional Mobility PT Goal 1 Goal / Goal Update * 5 reps sit/stand time of 16 seconds with use of 1 UE, to improve transfer skill Target Visit 10 PT Goal 2 Goal / Goal Update * 2 minute walking test distance of 325' with cane, to improve community mobility Target Visit 10 PT Problem 5 PT Problem #5 Impaired Functional Mobility PT Goal 1 Goal / Goal Update * pt up/down 12 steps with one hand railing and alternate step pattern Target Visit 10 PT Goal 2 Goal / Goal Update * increase strength of L knee to 4+/5, to improve mobility skills Target Visit 10
--- NOTE | 2024-10-10 09:57 | PTOPEVAL1 ---
Assessment and note entered by Tracey Troncoso, PT Evaluation Information Assessment Status Evaluation ICD-10 Condition Codes (PT) Pain in left knee M25.562,Encounter for other orthopedic aftercare Z47.89,Aftercare following joint replacement surgery Z47.1 Onset 10-06-24 Subjective Information using the wheeled walker, resting, elevating leg, doing exercises; knee is swollen, have not used her home compression pump; instruct on use 1-2x/day for edema and pain control Activity: work at [employer], 4-5 hours at time; is at home with ; have 2nd floor, but stay on the main level of home, ramp to enter; Reported Pain Level Pain Score Self Report Additional Pain Score Comments pain range in past few days 0-8/10; taking the oxycodone every 4 hours; have been elevating leg, moving every hour; awaken from sleep about 2x/night Assessment PT Clinical Summary Kishan is s/p L TKR. She had the R TKR about 3 months ago and reports this L knee is doing better than the R was. Her was present during eval and supportive to pt. 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 She has not done the stairs at home, they stay on the main level and do not have to go upstairs. With the evaluation: she is using the wheeled walker with WBAT on L LE; on 4 stairs requires bilateral hand rail and single step pattern; 5 rep sit/stand time of 23 seconds with use of both UE on chair; 2 minute walking test distance of 225'; L knee extension (-5') and flexion 95'. Education on stretching for 5 minutes every hour and HEP. Skilled PT services are indicated post op TKR to increase knee ROM and strength, progression of gait to lesser assistive device, education to progress HEP. Modalities PRN for pain control. Plan of Care Interventions Electrical Stimulation,Gait Training,Manual Therapy,Neuro Re-education,Patient/Caregiver Education,Therapeutic Activities,Therapeutic Exercise,Ultrasound,Other Other Interventions taping PT Services Indicated Yes Treatment Frequency and 2x/wk for 10 visits Duration These treatments will address the objective and functional deficits as defined above. The patient will be advanced safely and appropriately in order for the patient to progress towards his/her prior level of function. Additional exercises will be introduced and as well as a comprehensive home exercise program upon discharge, if needed, ?to ensure carryover of functional gains achieved in the clinic. This treatment plan has been reviewed and agreement upon by the patient.
--- NOTE | 2024-11-10 10:00 | OPREHPOC ---
Outpatient Therapy Plan of Care This is a Multidisciplinary Plan of Care that may contain components documented by all disciplines (PT, OT, and ST.) PT Problem 1 PT Problem #1 Knowledge Deficit PT Goal 1 Goal / Goal Update *indep with HEP 11-10-24 progress goal met continue to progress HEP Target Visit 16 PT Goal 2 Goal / Goal Update * correct gait pattern with cane or no device 11-10-24 progress goal met Target Visit 10 Progress Met PT Problem 2 PT Problem #2 Pain PT Goal 1 Goal / Goal Update decrease pain L knee, to increase activity level: pain rating at worst of 4/10 11-10-24 progress goal not met, 6/10 at worst continue towards goal Target Visit 16 PT Goal 2 Goal / Goal Update * pt report able to sleep without awakening due to knee pain 11-10-24 progress goal not met, awaken 2-3 x/night continue towards goal Target Visit 16 PT Problem 3 PT Problem #3 Impaired Flexibility PT Goal 1 Goal / Goal Update increase L knee active ROM/flexibility to improve gait, stair and transfer sit/stand skills: active in sittin' to 115' 11-10-24 progress goal met; NEW GOAL; active knee flexion in sitting 120' Target Visit 16 PT Problem 4 PT Problem #4 Impaired Functional Mobility PT Goal 1 Goal / Goal Update * 5 reps sit/stand time of 16 seconds with use of 1 UE, to improve transfer skill 11-10-24 progress goal not met, improved to 23 seconds without UE NEW goal: 5 reps sit/stand without use of UE x 16 seconds Target Visit 16 PT Goal 2 Goal / Goal Update * 2 minute walking test distance of 325' with cane, to improve community mobility 11-10-24 progress goal not met continue towards Target Visit 16 PT Problem 5 PT Problem #5 Impaired Functional Mobility PT Goal 1 Goal / Goal Update * pt up/down 12 steps with one hand railing and alternate step pattern 11-10-24 progress goal met NEW GOAL: up/down 12 steps without hand rail and no hesitation with full weight on L LE Target Visit 16 PT Goal 2 Goal / Goal Update * increase strength of L knee to 4+/5, to improve mobility skills 11-10-24 progress goal not met, improved to 4/5 continue towards goal Target Visit 16
--- NOTE | 2024-11-10 10:00 | PTOPPROG ---
Assessment and note entered by Tracey Troncoso, PT Assessment Status Progress ICD-10 Condition Codes (PT) Pain in left knee M25.562,Encounter for other orthopedic aftercare Z47.89,Aftercare following joint replacement surgery Z47.1 Onset 10-06-24 Subjective Information stopped using the cane a few days ago; back to doing everything but still a challenge on stairs- kind of hard to get my leg up; have been doing all the exercises and walking more; PAIN: range in the past week: 2-6/10; increase pain: end of the day/ night time decrease pain: sit, rest, tylenol, last week: started take oxycodone 2x/wk before PT sessions only with sleeping, awaken 2-3x/night due to knee pain: problems getting comfortable to sleep- likes to sleep on her side, but has been sleeping supine; educated on side sleeping with pillow between knees/ankles-- she has not been doing that Assessment PT Clinical Summary Kishan has received 10 PT sessions. She has improved in all areas. With today's assessment: pain rating 2-6/10; awaken from sleeping 2-3x/night due to knee pain; is taking oxycodone ~ 2x/week; self assessment with LE functional scale rating of 73% limitation in activity level; 5 reps sit/ stand time of 23 seconds, without use of UE; 2 minute walking test distance without assistive device 300'; on stairs, requires use of 1 UE for alternating step pattern, with hesitation with full weight bearing on her L LE; single leg standing time on L is 12 seconds and unstable. Active knee ROM in sitting 0-105' and with stretching flexion to 115. The goals were partially achieved. Continue PT treatment to increase strength of L hip and knee and increase knee flexion ROM. Plan of Care Interventions Electrical Stimulation,Gait Training,Manual Therapy,Neuro Re-education,Patient/Caregiver Education,Therapeutic Activities,Therapeutic Exercise,Ultrasound,Other Other Interventions taping PT Services Indicated Yes Treatment Frequency and 2x/wk for 6 visits Duration These treatments will address the objective and functional deficits as defined above. The patient will be advanced safely and appropriately in order for the patient to progress towards his/her prior level of function. Additional exercises will be introduced and as well as a comprehensive home exercise program upon discharge, if needed, ?to ensure carryover of functional gains achieved in the clinic. This treatment plan has been reviewed and agreement upon by the patient.
--- NOTE | 2024-12-06 11:41 | PTOPDC ---
Assessment and note entered by Tracey Troncoso, PT Assessment Status Discharge ICD-10 Condition Codes (PT) Pain in left knee M25.562,Encounter for other orthopedic aftercare Z47.89,Aftercare following joint replacement surgery Z47.1 Onset 10-06-24 Subjective Information knee is still stiff and problems with bending it; have to think with doing stairs- to use the right method and not swing leg side ways; have been doing the exercises at home; doing everything at home and work; Reported Pain Level Pain Score Self Report Additional Pain Score Comments pain range in the past few days 0-5/10 increase pain: bending knee, doing exercises, rolling over in bed decrease pain: sit, rest, tylenol sleep is not disrupted due to knee pain Assessment PT Clinical Summary Kishan has received 16 PT sessions. With today's reassessment: pain rating of 0-5/10; self assessment with LE functional rating of 34% limitation in activity level; 5 reps sit/stand time of 17 seconds; 2 minute walking test distance of 440'; on 12 steps is able to perform with alternating step pattern--ascending without hand railing and descending requires 1 hand railing; good strength of L hip and knee; independent with HEP. AROM of L knee in sitting 0-115'. The goals were achieved, except knee ROM, no railing on stairs and sit/stand time. Discharge PT. She is to continue with her exercises and increase activity as tolerated. Plan of Care PT Services Indicated No
== END 2024-12-06 11:49 | disposition home or self-care (01) ==
LOC: ANHPT 11:00
PROVIDERS: PCP Family Medicine; Visit Provider Orthopaedic Surgery
DX: M17.12 Unilateral primary osteoarthritis, left knee (principal); Z96.652 Presence of left artificial knee joint
CPT/HCPCS: 97110; 97116; 97140; 97161; 97530

== ENCOUNTER 2024-12-20 13:07 | Outpatient (CLI) | payer OTHER, SELFPAY ==
--- NOTE | ~2024-12-20 | US_ITS ---
EXAM: PELVIC ULTRASOUND HISTORY: Abn uterine bleeding . 3 para 3. COMPARISON: None. FINDINGS: UTERUS: 10.1 x 3.8 x 4.8 cm. The uterus is anteverted and anteflexed. The endometrial complex measures 3.3 mm. Within the anterior margin of the fundus of the uterus is a focus of mixed echogenicity measuring 1.9 x 1.9 x 2, likely a subserosal fibroid. RIGHT OVARY: Despite prolonged interrogation, the right ovary was not visualized. LEFT OVARY: Despite prolonged interrogation the left ovary was not visualized. No free fluid is identified within the pelvis. IMPRESSION: Single fibroid within the uterus. Despite prolonged interrogation, neither ovary was visualized Reviewed, dictated and finalized at location A.
== END 2024-12-20 13:08 | disposition home or self-care (01) ==
LOC: MICIMG 13:08
PROVIDERS: PCP Family Medicine; Visit Provider Obstetrics & Gynecology Gynecologic Oncology
DX: N93.9 Abnormal uterine and vaginal bleeding, unspecified (principal); D25.9 Leiomyoma of uterus, unspecified
CPT/HCPCS: 76856

== ENCOUNTER 2025-04-09 17:28 | Emergency (ER) | payer OTHER, SELFPAY ==
[2025-04-09 17:37] VITALS: BP 130/79; PULSE 86; RESP 16; TEMP 36.6; O2SAT 96
[2025-04-09 17:45] LABS: EDUAAPPEAR Cloudy; EDUABILI 1+ (Negative); EDUABLOOD 2+ (Negative); EDUACOLOR1 Yellow; EDUAGLUCOSE Negative (Negative); EDUAKETONE Trace (Negative); EDUALEUKO 1+ (Negative); EDUANITRATE Negative (Negative); EDUAPH 5.5; EDUAPROTEIN 2+ (Negative); EDUASPGRAVITY 1.030; EDUAUROBILI 0.2
--- NOTE | 2025-04-09 17:54 | ED.FEMALEGU ---
HPI - Female Genitourinary General Chief complaint: Urogenital-Female Stated complaint: Uti Symptoms Time Seen by Provider: 04/09/25 17:39 Source: patient and RN notes reviewed Mode of arrival: ambulatory Limitations: no limitations History of Present Illness HPI Narrative: Patient presents today complaining of urinary frequency since this morning and also states, ?it feels like my insides are coming out. Denies dysuria, hematuria, abdominal pain. No OTC treatment prior to arrival. States she has only ever had 1 other UTI. Multiple drug allergies. Related Data Home Medications ?Medication ?Instructions ?Recorded ?Confirmed ?Last Taken ?Type cetirizine 10 mg capsule (Zyrtec) 10 mg PO DAILY PRN allergy symptoms 08/17/24 04/05/25 10/05/24 History mecobalamin (vitamin B12) 500 mcg 1,000 mcg PO DAILY 08/17/24 04/05/25 09/29/24 History chewable tablet apremilast 30 mg tablet (Otezla) 30 mg PO BID 04/05/25 04/05/25 Unknown History Allergies Allergy/AdvReac Type Severity Reaction Status Date / Time ciprofloxacin Allergy Intermediate hives Verified 04/09/25 17:39 Penicillins Allergy Intermediate Vomiting Verified 04/09/25 17:39 Sulfa (Sulfonamide Allergy Mild Rash Verified 04/09/25 17:39 Antibiotics) cefuroxime (From Ceftin) Allergy Unknown Hives Verified 04/09/25 17:39 mold Allergy Unknown sinus Verified 04/09/25 17:39 congestion pollen Allergy Mild congestion Uncoded 12/28/24 11:06 seasonal allergies Allergy Unknown congestion Uncoded 12/28/24 11:06 PMFSH Past Medical History Medical History 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 Enlarged lymph nodes Hypothyroidism Hyperthyroidism Claustrophobia Pneumonia Vertigo Weight gain BMI greater than 40 Psoriasis Right knee DJD Left knee DJD Arthritis AMIRAH (obstructive sleep apnea) Osteoarthritis Anxiety Family history of coronary artery disease Gastroesophageal reflux disease without esophagitis Major depressive disorder with single episode, in partial remission Complex tear of medial meniscus, current injury, left knee, subsequent encounter Vitamin B12 deficiency Surgical History Surgical History History of left knee replacement History of total right knee replacement H/O partial thyroidectomy H/O arthroscopy of left knee Family History Family History Mother Hypertension Grandparent Hypertension Carcinoma of colon, Onset Age: 60 Family history of coronary artery disease Father Family history of malignant neoplasm of gastrointestinal tract, Onset Age: 60 Sibling Family history of lupus erythematosus Other Family history of gout Family history of malignant neoplasm Social History Social History Smoking packs per day: 1 Smoking cigarettes per day: 20.0 Years smoked: 30 Smoking pack-years: 30.00 Smoking status: Former smoker Second hand tobacco smoke exposure: No Additional smoking assessment comments: . Alcohol intake: never Drinks per week: 0 Alcohol use details: rare use Substance use: never Substance use type: does not use Lack of Food: Never True Current Housing: Decline to Answer Concerned About Future Housing: Decline to Answer Difficulty Paying Gas/Electric Bills: Decline to Answer Difficulty Paying for Meds: Decline to Answer Currently Unemployed: Decline to Answer Education: Decline to Answer Difficulty w/ Childcare or Family Care: Decline to Answer Living arrangements: with family Additional living arrangements comments: Occupation/Education: occupation Additional occupation/education comments: [employer] Gender identity (if verbalized by the patient): Female Sexual Orientation (if Verbalized by the Patient): Straight or Heterosexual Spiritual care concerns: No Agree to blood products: Yes Comments At time of signature, I have reviewed and agree with nursing past medical, surgical, social and family history unless otherwise noted. Please see nursing chart for further information. There is no relevant family history pertinent to the presenting complaint Exam Narrative: GENERAL: Well-appearing, well-nourished, and in no acute distress. HEAD: Normocephalic, atraumatic. EYES: EOMI. No redness or drainage. Conjunctivae normal. ENT: Mucous membranes pink and moist. NECK: Normal AROM. CHEST: No respiratory distress. Clear to auscultation. HEART: Regular rate and rhythm. No murmur appreciated. ABDOMEN: Soft, nontender, nondistended, normal active bowel sounds. -CVAT EXTREMITIES: Normal range of motion. No edema. SKIN: Warm, dry, no rash. Capillary refill normal. Normal skin turgor. NEURO: No focal deficits. Alert and oriented x3. Gait steady. PSYCH: Normal affect. No signs of depression or anxiety. Course Course Level of Care: Express Care Visit Vital Signs Vital signs: Vital Signs Temperature 97.8 F 04/09/25 17:37 Pulse Rate 86 04/09/25 17:37 Respiratory Rate 16 04/09/25 17:37 Blood Pressure 130/79 04/09/25 17:37 Pulse Oximetry 96 04/09/25 17:37 Temperature 97.8 F 04/09/25 17:37 Pulse Rate 86 04/09/25 17:37 Respiratory Rate 16 04/09/25 17:37 Blood Pressure 130/79 04/09/25 17:37 Pulse Oximetry 96 04/09/25 17:37 Reviewed MDM - Female Genitourinary MDM Narrative Medical decision making narrative: 59-year-old female patient presents today complaining of urinary frequency and feelings that my insides are coming out since yesterday. Denies any additional symptoms. Urinalysis shows 2+ protein, 2+ blood, 1+ bilirubin, trace ketones, 1+ leukocytes. Patient has multiple drug allergies including cefuroxime, but has taken Omnicef in the past. Will start on doxycycline with culture pending. This time, patient is exhibiting no red flag symptoms to suggest pyelonephritis. Vital signs stable. Anticipatory guidance given Differential Diagnosis Differential diagnosis: Likely urinary tract infection and cystitis Lab Data Attestation: I reviewed the patient's lab results. Labs: Lab Results 04/09/25 Range/Units 17:43 POC Urine Color Yellow POC Urine Clarity Cloudy POC Urine pH 5.5 POC Ur Specif [place] 1.030 POC Urine Protein 2+ (Negative) POC Ur Glucose (UA) Negative (Negative) POC Urine Ketones Trace (Negative) POC Urine Blood 2+ (Negative) POC Urine Nitrite Negative (Negative) POC Urine Bilirubin 1+ (Negative) POC Urine Urobilinogen 0.2 POC U Leukocyte Esteras 1+ (Negative) Critical Care Time Critical Care Time Critical Care Time: No Discharge Plan Discharge Clinical Impression: Urinary tract infection Qualifiers: Urinary tract infection type: acute cystitis Hematuria presence: with hematuria Qualified Code(s): N30.01 - Acute cystitis with hematuria Patient Disposition: Home Condition: Stable Instructions: Antibiotic Form, Urinary Tract Infection in Women (ED) Additional Instructions: Your urine shows infection today. Take doxycycline as prescribed until gone. Your urine will be sent of for a culture to identify what type of bacteria is causing your infection. If the culture shows that your medication will not get rid of your infection, you will be notified and a new antibiotic will be called in for you. If your symptoms worsen to include fever, sweats, chills, nausea, vomiting, severe abdominal or back pain, please go to the ER for further evaluation. Your blood pressure was elevated above 120/80 today at Urgent Care. This puts you above the threshold for follow up. Please schedule a followup visit with your personal physician as soon as possible, for further evaluation and treatment. Even blood pressure exceeding 120/80 may indicate pre-hypertension. Patient Language: Icelandic Prescriptions: New doxycycline hyclate 100 mg tablet 100 mg PO BID 7 Days Qty: 14 0RF No Action Zyrtec 10 mg capsule 10 mg PO DAILY PRN (Reason: allergy symptoms) mecobalamin (vitamin B12) 500 mcg tablet,chewable 1,000 mcg PO DAILY solifenacin [Vesicare] 10 mg tablet 10 mg PO DAILY Qty: 90 1RF sertraline 100 mg tablet 100 mg PO DAILY Qty: 90 1RF Patient Comments: HS buspirone 5 mg tablet 5 mg PO BID Qty: 60 0RF Otezla 30 mg tablet 30 mg PO BID Patient Comments: TAKES FOR PSORIASIS Wegovy 2.4 mg/0.75 mL pen injector 2.4 mg subcut WEEKLY Qty: 9 1RF Follow-up/Referrals: Precious Mcmahan MD [Primary Care Provider] - Time of Disposition: 17:52
== END 2025-04-09 17:54 | disposition home or self-care (01) ==
PROVIDERS: Emergency Provider Nurse Practitioner; PCP Family Medicine
DX: N30.01 Acute cystitis with hematuria (principal); Z87.891 Personal history of nicotine dependence; E03.9 Hypothyroidism, unspecified; E05.90 Thyrotoxicosis, unspecified without thyrotoxic crisis or storm; L40.9 Psoriasis, unspecified; M17.0 Bilateral primary osteoarthritis of knee; K21.9 Gastro-esophageal reflux disease without esophagitis; E53.8 Deficiency of other specified B group vitamins; Z96.653 Presence of artificial knee joint, bilateral; Z90.89 Acquired absence of other organs; Z86.002 Personal history of in-situ neoplasm of other and unspecified genital organs
CPT/HCPCS: 81003; 87086; 99213; G0463

== ENCOUNTER 2025-06-27 14:25 | Outpatient (CLI) | payer OTHER, SELFPAY ==
--- NOTE | ~2025-06-27 | US_ITS ---
US thyroid INDICATION: Partial thyroidectomy. Evaluate for lymph nodes. TECHNIQUE: Real-time sonographic images of the thyroid gland were obtained. COMPARISON: Ultrasound dated 07/28/2024 FINDINGS: The right thyroid lobe measures 5.2 x 2.1 x 1.5 cm. The left thyroid lobe is surgically absent. No discrete mass identified in the right thyroid lobe. Normal vascularity. There are normal-appearing cervical lymph nodes with retained fatty hilum. No suspicious masses to suggest malignancy. IMPRESSION: 1. Unremarkable thyroid ultrasound status post left thyroidectomy. Reviewed, dictated and finalized at location O.
== END 2025-06-27 14:26 | disposition home or self-care (01) ==
LOC: GOSHIMG 14:26
PROVIDERS: PCP Family Medicine; Visit Provider Internal Medicine
DX: E53.8 Deficiency of other specified B group vitamins (principal); E89.0 Postprocedural hypothyroidism; E04.2 Nontoxic multinodular goiter; E66.01 Morbid (severe) obesity due to excess calories; Z68.36 Body mass index [BMI] 36.0-36.9, adult
CPT/HCPCS: 76536